=== PATIENT | female | born 1930 | race Caucasian/White ===

== ENCOUNTER → 2016-05-22 | Outpatient (CLI) | payer BC ==
[~2016-05-22] MED LIST: ASCO100061 PO; B-COTAB18 PO; CALC-393 PO; CHOL1000 PO; CIPR-255 PO; LEVE500T PO; MELA1TAB5 PO; MULT-513 PO; ONDA4TAB10 SL; ONDA4TAB46 PO; PRLSR20 PO; SIMV20TA2 PO; TEMA15CA4 PO; ZLF/100 PO; ZNTT/150 PO
[2016-05-22 17:27] LABS: BASO % 0.5 %; BASO ABS # 0.04 K/uL (0-0.2); COMPLETE YES; EOS % 1.4 %; HEMATOCRIT 37.8 % (37-47); IG% 0.1 %; LYMPH % 15.3 %; LYMPH ABS # 1.29 K/uL (1.2-3.4); MEAN CELL VOLUME 94.7 fL (80-100); MEAN CORPUSCULAR HEMOGLOBIN 32.6 pg (25-34); MEAN CORPUSCULAR HGB CONC 34.4 g/dl (32-36); MEAN PLATELET VOLUME 10.2 fL (7.4-10.4); MONO % 7.3 %; NEUT % 75.4 %; PLATELET COUNT 187 K/uL (130-400); RED BLOOD COUNT 3.99 M/uL (4.2-5.4); WHITE BLOOD COUNT 8.44 K/uL (4.8-10.8)
[2016-05-22 17:34] LABS: ALT/SGPT 25 U/L (12-78); BLOOD UREA NITROGEN 28 mg/dl (7-18); BUN/CREATININE RATIO 23.1 (10-20); CALCIUM 10.1 mg/dl (8.5-10.1); CARBON DIOXIDE 28 mmol/L (21-32); CHLORIDE 106 mmol/L (98-107); GLUCOSE 109 mg/dl (70-99); POTASSIUM 4.1 mmol/L (3.5-5.1); SODIUM 142 mmol/L (136-145)
[2016-05-22 17:44] LABS: ALKALINE PHOSPHATASE 43 U/L (45-117); AST/SGOT 25 U/L (15-37); THYROID STIMULATING HORMONE 0.661 uIu/ml (0.300-4.500)
[2016-05-22 17:54] LABS: ESTIMATED AVERAGE GLUCOSE 123 mg/dl; HA1C FLAG Normal (Normal)
--- NOTE | 2016-05-30 08:57 | CODING QUERY MEDICAL NECESSITY ---
SUPPORTING DIAGNOSIS NEEDED A supporting diagnosis is required for the test/procedure performed on this patient in order for us to be reimbursed by the patient's insurance. Please provide a supporting diagnosis for the following test/procedure listed below next to the test name along with your signature. *If there is no additional diagnosis for this patient that would support the following test/procedure please document that below next to the test/procedure. Test(s)/Procedure(s) that require a supporting diagnosis: * GLYCATED HEMOGLOBIN DIAGNOSIS: * DOS: 05/22/16 Provider Signature: Date: Thank you Sobia Nicolas Health Information Management Once completed, please kindly fax back to [phone] For questions please call [phone]
== END | disposition home or self-care (01) ==
LOC: C.LABBFT 12:05
PROVIDERS: ATTEND Internal Medicine
DX: N39.0 Urinary tract infection, site not specified (principal); I10 Essential (primary) hypertension; R73.9 Hyperglycemia, unspecified

== ENCOUNTER → 2016-06-27 | Outpatient (CLI) | payer BC ==
--- NOTE | 2016-06-28 17:12 | EEG Procedure Note ---
EEG Procedure Note Date of Service Jun 27, 2016. Start / End Times Start Time: 1:32 PM End Time: 1:53 PM Referring Physician Vickey Jones History This is a 86-year-old female with history of seizures. EEG for further evaluation of seizures and medication management. Home Medication List Scheduled Ascorbic Acid (Ascorbic Acid), 1,000 MG PO DAILY B-Complex Vitamins (Vitamin B Complex), 1 TAB PO BID Calcium Carbonate (Calcium), 600 MG PO BID Cholecalciferol (Vitamin D3), 1,000 UNITS PO DAILY Levetiractam (Levetiracetam), 500 MG PO BID Melatonin (Kp Melatonin), 3 MG PO HS Multivitamins/Minerals (Mvi With Minerals), 1 TAB PO DAILY Omeprazole (Prilosec), 20 MG PO BID Ondasetron Odt (Zofran Odt), 4 MG SL Q6H Sertraline HCl (Sertraline HCl), 150 MG PO DAILY Simvastatin (Zocor), 20 MG PO QPM Temazepam (Restoril), 7.5 MG PO HS Description This is a 21 electrode EEG with a single channel dedicated to limited EKG. The electrodes were placed in accordance with the International 10-20 system. At the start of the recording the patient was in an awake state. Background was well organized and composed of symmetric mixed alpha and beta frequencies. There was a symmetric well-formed moderate amplitude 8-9 Hz posterior dominant rhythm that was reactive to eye opening and closure. Hyperventilation was not done. Intermittent photic stimulation at various frequencies produced no abnormalities. Drowsiness was indicated by loss of muscle artifact and slowing of the background rhythm. There was no sleep transients. Interpretation This is a normal awake and drowsy routine EEG. There was no electrographic seizures or epileptiform discharges. Clinical Correlation A normal EEG does not rule out epilepsy if there is a strong clinical suspicion.
== END | disposition home or self-care (01) ==
LOC: C.NEUR 13:25
PROVIDERS: ATTEND Psychiatry & Neurology Neurology
DX: G40.909 Epilepsy, unspecified, not intractable, without status epilepticus (principal)

== ENCOUNTER 2016-07-25 10:48 | Emergency (ER) | payer BC ==
[~2016-07-25] VITALS: Ht 157.5 cm; Wt 67.7 kg
[~2016-07-25 10:48] MED LIST changes: -CIPR-255 PO; -ONDA4TAB10 SL; -ONDA4TAB46 PO; -ZNTT/150 PO
[2016-07-25 10:54] VITALS: TEMP 36.6; Ht 157.5 cm; Wt 67.7 kg
[2016-07-25] MEDS ORDERED: ZNTT/150 PO (11:44)
[2016-07-25] MEDS ORDERED: ONDA4TAB46 PO (11:44)
[2016-07-25 12:36] LABS: BASO % 0.8 %; BASO ABS # 0.05 K/uL (0-0.2); COMPLETE YES; EOS % 1.6 %; HEMATOCRIT 38.1 % (37-47); IG% 0.2 %; LYMPH % 20.8 %; LYMPH ABS # 1.31 K/uL (1.2-3.4); MEAN CELL VOLUME 94.1 fL (80-100); MEAN CORPUSCULAR HEMOGLOBIN 31.9 pg (25-34); MEAN CORPUSCULAR HGB CONC 33.9 g/dl (32-36); MEAN PLATELET VOLUME 9.7 fL (7.4-10.4); MONO % 10.3 %; NEUT % 66.3 %; PLATELET COUNT 182 K/uL (130-400); RED BLOOD COUNT 4.05 M/uL (4.2-5.4); WHITE BLOOD COUNT 6.31 K/uL (4.8-10.8)
[2016-07-25 12:47] LABS: URINE APPEARANCE CLEAR (CLEAR); URINE BILIRUBIN NEG (NEG); URINE COLOR DK YELLOW; URINE EPITHELIAL CELL AUTO 20-30 /lpf (0-5); URINE NITRITE NEG (NEG); URINE PH 5.5 (4.5-7.5); URINE SPECIFIC GRAVITY 1.018 (1.000-1.030); UROBILINOGEN NEG (NEG)
[2016-07-25 12:48] LABS: PARTIAL THROMBOPLASTIN RATIO 0.9; PROTHROMBIN TIME (PATIENT) 10.3 SECONDS (9.0-12.0)
[2016-07-25 12:51] LABS: MANUAL MICROSCOPIC REQUIRED? NO; REVIEW REQ? NO
--- NOTE | 2016-07-25 12:54 | DIAGNOSTIC IMAGING REPORT ---
TWO VIEW CHEST CLINICAL HISTORY: Cough. FINDINGS: PA and lateral chest radiographs are compared to chest x-ray dated 01/12/2016 and correlated with chest CT dated 08/29/2014. The PA view is degraded by apical lordotic positioning. The cardiomediastinal silhouette is unremarkable. There is atherosclerotic calcification of the thoracic aorta. Chronic interstitial thickening is unchanged. There is no airspace consolidation or pleural effusion. No pneumothorax is seen. The skeletal structures are osteopenic. The bony thorax is grossly intact. IMPRESSION: No active disease in the chest. Electronically signed by: Itz Hugo M.D. 07/25/2016 12:53 PM Dictated Date/Time: 07/25/2016 12:52 PM
[2016-07-25 13:02] LABS: ALT/SGPT 25 U/L (12-78); AST/SGOT 20 U/L (15-37); BLOOD UREA NITROGEN 20 mg/dl (7-18); BUN/CREATININE RATIO 22.6 (10-20); CALCIUM 9.2 mg/dl (8.5-10.1); CARBON DIOXIDE 29 mmol/L (21-32); CHLORIDE 108 mmol/L (98-107); CREATININE 0.89 mg/dl (0.60-1.20); GLUCOSE 109 mg/dl (70-99); MAGNESIUM 2.2 mg/dl (1.8-2.4); POTASSIUM 4.2 mmol/L (3.5-5.1); SODIUM 143 mmol/L (136-145)
[2016-07-25 13:10] LABS: ALKALINE PHOSPHATASE 47 U/L (45-117); THYROID STIMULATING HORMONE 0.698 uIu/ml (0.300-4.500)
[2016-07-25 13:48] VITALS: BP 112/73; PULSE 58; O2SAT 95
--- NOTE | 2016-07-25 17:18 | EMERGENCY ROOM VISIT NOTE ---
History Report prepared by Yuridia: Donnie Connolly Under the Supervision of: Dr. Dre Koroma M.D. First contact with patient: 11:47 Chief Complaint: OTHER COMPLAINT Stated Complaint: WEAKNESS History of Present Illness The patient is an 86 year old female who presents to the Emergency Room with complaints of persistent generalized weakness for the past two months. The patient has been having trouble sleeping for two months as well. She can usually only sleep two hours at a time. She has been taking Melatonin and Temazepam. The patient has been experiencing some nonproductive coughing for about six months. She denies fevers, congested, chest pain, vomiting, diarrhea, black or bloody stools, burning with urination. The patient has been less active since the onset of her weakness. She was going for walks multiple times per week prior to the onset of her symptoms. She had a change in her bowel movements yesterday but notes that it was not diarrhea. The patient experiences urinary incontinence chronically. She does not have much an appetite but has been eating. The patient was referred to the ED by staff at Dr. Oscar's office this morning. She was supposed to see Dr. Oscar at 1130. Source of History: patient Onset: two months ago Position: other (generalized) Quality: other (weakness) Timing: other (persistent) Associated Symptoms: + cough, No chest pain, No diarrhea, No hematochezia, No melena, No urinary symptoms (no burning), No vomiting Review of Systems See HPI for pertinent positives & negatives. A total of 10 systems reviewed and were otherwise negative. Past Medical & Surgical Medical Problems: (1) Chr Peptic Ulcer W Hem (2) Chronic Kidney Disease, Unspecified (3) Depressive Disorder Nec (4) Diab Angella Wo Compl, Type Ii Or Unspec Type, Not Uncntrld (5) Generalized Anxiety Dis (6) Hypercholesteremia (7) Hyperlipidemia Nec/Nos (8) Hypertension Nos (9) Low back pain (10) Osteoarthros Nos-Unspec Surgical Problems: (1) S/P hysterectomy Family History Cancer Diabetes mellitus Gallbladder disease Heart disease Hypertension Seizures Social History Smoking Status: Never Smoker Alcohol Use: none Drug Use: none Marital Status: single Housing Status: lives alone Occupation Status: retired Current/Historical Medications Scheduled Ascorbic Acid (Ascorbic Acid), 1,000 MG PO DAILY Cholecalciferol (Vitamin D3), 1,000 UNITS PO DAILY Levetiractam (Levetiracetam), 500 MG PO BID Melatonin (Kp Melatonin), 3 MG PO HS Ranitidine (Zantac), 150 MG PO Q12 Sertraline HCl (Sertraline HCl), 150 MG PO QAM Simvastatin (Zocor), 20 MG PO QPM Temazepam (Restoril), 7.5 MG PO HS Scheduled PRN Ondansetron Hcl (Zofran), 4 MG PO Q6 PRN for Nausea Allergies Coded Allergies: Penicillins (Verified Allergy, Unknown, UNKNOWN, 07/25/16) Aspirin (Verified Adverse Reaction, Unknown, INTOLERANT TO ASA, 07/25/16) Physical Exam Vital Signs Date Time Temp Pulse Resp B/P Pulse Ox O2 Delivery O2 Flow Rate FiO2 07/25/16 13:48 58 18 112/73 95 Room Air 07/25/16 12:42 57 07/25/16 12:32 60 18 118/62 96 Room Air 07/25/16 10:54 36.6 68 18 142/71 95 Physical Exam Constitutional: Vital signs reviewed. Eyes: Pupils are equal round reactive to light. Conjunctiva are noninjected. ENT: Pharynx is clear without erythema or exudate. Mucous membranes are moist. Neck supple without meningeal signs. Respiratory: Clear to auscultation bilaterally. Breath sounds are equal bilaterally. Cardiovascular: Regular rate and rhythm. No rubs or gallops. GI: Soft, nondistended and nontender. Bowel sounds are present. Musculoskeletal: No peripheral edema. No lower extremity tenderness. Integumentary: No cyanosis. Neurological: The patient is awake and alert. No focal deficits. Psychiatric: Normal affect. Medical Decision & Procedures ER Provider Diagnostic Interpretation: X-ray results as stated below per interpretation by me and the radiologist: TWO VIEW CHEST CLINICAL HISTORY: Cough. FINDINGS: PA and lateral chest radiographs are compared to chest x-ray dated 01/12/2016 and correlated with chest CT dated 08/29/2014. The PA view is degraded by apical lordotic positioning. The cardiomediastinal silhouette is unremarkable. There is atherosclerotic calcification of the thoracic aorta. Chronic interstitial thickening is unchanged. There is no airspace consolidation or pleural effusion. No pneumothorax is seen. The skeletal structures are osteopenic. The bony thorax is grossly intact. IMPRESSION: No active disease in the chest. Electronically signed by: Itz Hugo M.D. 07/25/2016 12:53 PM Dictated Date/Time: 07/25/2016 12:52 PM Laboratory Results 07/25/16 12:17 Red Blood Count 4.05, Mean Corpuscular Volume 94.1, Mean Corpuscular Hemoglobin 31.9, Mean Corpuscular Hemoglobin Concent 33.9, Mean Platelet Volume 9.7, Neutrophils (%) (Auto) 66.3, Lymphocytes (%) (Auto) 20.8, Monocytes (%) (Auto) 10.3, Eosinophils (%) (Auto) 1.6, Basophils (%) (Auto) 0.8, Neutrophils # (Auto ) 4.19, Lymphocytes # (Auto) 1.31, Monocytes # (Auto) 0.65, Eosinophils # (Auto ) 0.10, Basophils # (Auto) 0.05 07/25/16 12:17 Test 07/25/16 12:17 07/25/16 12:31 White Blood Count 6.31 K/uL (4.8-10.8) Red Blood Count 4.05 M/uL (4.2-5.4) Hemoglobin 12.9 g/dL (12.0-16.0) Hematocrit 38.1 % (37-47) Mean Corpuscular Volume 94.1 fL (80-100) Mean Corpuscular Hemoglobin 31.9 pg (25-34) Mean Corpuscular Hemoglobin Concent 33.9 g/dl (32-36) Platelet Count 182 K/uL (130-400) Mean Platelet Volume 9.7 fL (7.4-10.4) Neutrophils (%) (Auto) 66.3 % Lymphocytes (%) (Auto) 20.8 % Monocytes (%) (Auto) 10.3 % Eosinophils (%) (Auto) 1.6 % Basophils (%) (Auto) 0.8 % Neutrophils # (Auto) 4.19 K/uL (1.4-6.5) Lymphocytes # (Auto) 1.31 K/uL (1.2-3.4) Monocytes # (Auto) 0.65 K/uL (0.11-0.59) Eosinophils # (Auto) 0.10 K/uL (0-0.5) Basophils # (Auto) 0.05 K/uL (0-0.2) RDW Standard Deviation 44.6 fL (36.4-46.3) RDW Coefficient of Variation 12.9 % (11.5-14.5) Immature Granulocyte % (Auto) 0.2 % Immature Granulocyte # (Auto) 0.01 K/uL (0.00-0.02) Prothrombin Time 10.3 SECONDS (9.0-12.0) Prothromb Time International Ratio 1.0 (0.9-1.1) Activated Partial Thromboplast Time 24.4 SECONDS (21.0-31.0) Partial Thromboplastin Ratio 0.9 Anion Gap 6.0 mmol/L (3-11) Est Creatinine Clear Calc Drug Dose 40.9 ml/min Estimated GFR () 68.0 Estimated GFR (Non- 58.7 BUN/Creatinine Ratio 22.6 (10-20) Calcium Level 9.2 mg/dl (8.5-10.1) Magnesium Level 2.2 mg/dl (1.8-2.4) Total Bilirubin 0.6 mg/dl (0.2-1) Direct Bilirubin 0.1 mg/dl (0-0.2) Aspartate Amino Transf (AST/SGOT) 20 U/L (15-37) Alanine Aminotransferase (ALT/SGPT) 25 U/L (12-78) Alkaline Phosphatase 47 U/L (45-117) Troponin I < 0.015 ng/ml (0-0.045) Total Protein 7.3 gm/dl (6.4-8.2) Albumin 3.6 gm/dl (3.4-5.0) Thyroid Stimulating Hormone (TSH) 0.698 uIu/ml (0.300-4.500) Free Thyroxine 0.86 ng/dl (0.80-1.60) Urine Color DK YELLOW Urine Appearance CLEAR (CLEAR) Urine pH 5.5 (4.5-7.5) Urine Specific [place] 1.018 (1.000-1.030) Urine Protein NEG (NEG) Urine Glucose (UA) NEG (NEG) Urine Ketones NEG (NEG) Urine Occult Blood NEG (NEG) Urine Nitrite NEG (NEG) Urine Bilirubin NEG (NEG) Urine Urobilinogen NEG (NEG) Urine Leukocyte Esterase SMALL (NEG) Urine WBC (Auto) 1-5 /hpf (0-5) Urine RBC (Auto) 0-4 /hpf (0-4) Urine Hyaline Casts (Auto) 1-5 /lpf (0-5) Urine Epithelial Cells (Auto) 20-30 /lpf (0-5) Urine Bacteria (Auto) NEG (NEG) Laboratory results as reviewed by me. ECG Indication: weakness Rate (beats per minute): 59 Rhythm: sinus bradycardia Findings: no acute ischemic change, no ectopy Comparison ECG Date: 2015 Change: no significant change ED Course 1150: The patient was evaluated in room C6. A complete history and physical exam was performed. 1330: Talked with her about the test results. Waiting on Dr. Oscar to return call. 1345: Spoke with Dr. Oscar. He does not know why she was sent to the ED. He will try to have her scheduled soon. 1352: Discussed the plan with the patient and her . Medical Decision This is an 86-year-old female who presents with generalized weakness and cough. Differential diagnosis includes insomnia, metabolic derangement, anemia, cardiac, infection, mass, pneumonia. I did perform a limited focused review of portions of the patient's old chart on the electronic medical record. The patient had a negative EEG on June 27. I did evaluate the patient as noted above. The patient is presenting with generalized weakness for the past 2 months. She states she is having trouble sleeping despite being on temazepam and melatonin. She also has a nonproductive cough for the past 6 months. She was at her doctor's office today for an appointment 11:30 but the nursing staff directed her here for evaluation. IV access was established. The patient was placed on a continuous surveillance system monitor. I did order and personally review the patient's 12-lead EKG and chest x-ray as described above. I did order and review the patient's blood work as noted in the electronic medical record. I did order a urinalysis which was unremarkable. I did discuss the test results with the patient. I did discuss the case with Dr. Oscar who stated that he would fit her in for an appointment in the near future. His office will call her today or tomorrow. The patient and her were happy with this plan. She was discharged in good condition. Impression Primary Impression: Generalized weakness Additional Impressions: Insomnia Cough Scribe Attestation The scribe's documentation has been prepared under my direct and personally reviewed by me in its entirety. I confirm that the note above accurately reflects all work, treatment, procedures, and medical decision making performed by me. Departure Information Dispostion Home / Self-Care Referrals Brant Oscar M.D. (PCP) Forms HOME CARE DOCUMENTATION FORM, IMPORTANT VISIT INFORMATION, WORK / SCHOOL INSTRUCTIONS Patient Instructions ED Cough Chronic Cause Unkn, ED Weakness [facility], [facility] Additional Instructions You have been examined and treated today on an emergency basis only. This is not a substitute for, or an effort to provide, complete comprehensive medical care. It is impossible to recognize and treat all injuries or illnesses in a single emergency department visit. It is therefore important that you follow up closely with your physician. Your doctor's office will call you within the next day for an appointment. Return for worsening symptoms or if you develop fever, vomiting, chest pain, shortness of breath or any other concerning symptoms. Problem Qualifiers Additional Impressions: Insomnia Insomnia type: unspecified Qualified Codes: G47.00 - Insomnia, unspecified
== END 2016-07-25 13:58 | disposition home or self-care (01) ==
LOC: C.EDB 10:49 → C.EDC 13:58
DX: R53.1 Weakness (principal); G47.00 Insomnia, unspecified; R05 Cough; N18.9 Chronic kidney disease, unspecified; I12.9 Hypertensive chronic kidney disease with stage 1 through stage 4 chronic kidney disease, or unspecified chronic kidney disease; F32.9 Major depressive disorder, single episode, unspecified; E11.9 Type 2 diabetes mellitus without complications; F41.1 Generalized anxiety disorder; E78.00 Pure hypercholesterolemia, unspecified; E78.5 Hyperlipidemia, unspecified; M54.5 Low back pain; M19.90 Unspecified osteoarthritis, unspecified site; Z90.710 Acquired absence of both cervix and uterus; Z80.9 Family history of malignant neoplasm, unspecified; Z83.3 Family history of diabetes mellitus; Z82.49 Family history of ischemic heart disease and other diseases of the circulatory system; Z82.0 Family history of epilepsy and other diseases of the nervous system; Z79.899 Other long term (current) drug therapy

== ENCOUNTER → 2016-10-01 | Outpatient (CLI) | payer BC ==
[~2016-10-01] MED LIST changes: -B-COTAB18 PO; -CALC-393 PO; +CIPR-255 PO; -MULT-513 PO; +ONDA4TAB46 PO; -PRLSR20 PO; +ZNTT/150 PO
[2016-10-01 17:27] LABS: URINE APPEARANCE CLEAR (CLEAR); URINE BILIRUBIN NEG (NEG); URINE COLOR YELLOW; URINE EPITHELIAL CELL AUTO 20-30 /lpf (0-5); URINE NITRITE NEG (NEG); URINE PH 5.5 (4.5-7.5); UROBILINOGEN NEG (NEG)
[2016-10-01 17:36] LABS: MANUAL MICROSCOPIC REQUIRED? NO; REVIEW REQ? NO
== END | disposition home or self-care (01) ==
LOC: C.LABBFT 12:10
PROVIDERS: ATTEND Physician Assistant Medical
DX: R39.15 Urgency of urination (principal)

== ENCOUNTER 2016-10-08 14:42 | Emergency (ER) | payer BC ==
[~2016-10-08] VITALS: Ht 154.9 cm; Wt 66.8 kg
[~2016-10-08 14:42] MED LIST changes: -CIPR-255 PO
[2016-10-08 14:45] VITALS: TEMP 36.8; O2SAT 94; Ht 154.9 cm; Wt 66.8 kg
[2016-10-08] MEDS ORDERED: SODIUM CHLORIDE 0.9% 1000ML 1,000 ML IV STA (15:07)
--- NOTE | 2016-10-08 15:53 | DIAGNOSTIC IMAGING REPORT ---
CHEST ONE VIEW PORTABLE CLINICAL HISTORY: altered mental status dyspnea COMPARISON STUDY: 07/25/2016 FINDINGS: The bones soft tissues and hemidiaphragms are normal. The cardiomediastinal silhouette is normal. The lungs are clear. The pulmonary vasculature is normal. IMPRESSION: Negative chest. The above report was generated using voice recognition software. It may contain grammatical, syntax or spelling errors. Electronically signed by: Satya Carter M.D. 10/08/2016 3:52 PM Dictated Date/Time: 10/08/2016 3:51 PM
[2016-10-08 15:57] LABS: BASO % 0.4 %; BASO ABS # 0.03 K/uL (0-0.2); COMPLETE YES; EOS % 1.4 %; HEMATOCRIT 36.8 % (37-47); IG% 0.1 %; LYMPH % 14.5 %; LYMPH ABS # 1.12 K/uL (1.2-3.4); MEAN CELL VOLUME 93.4 fL (80-100); MEAN CORPUSCULAR HEMOGLOBIN 32.5 pg (25-34); MEAN CORPUSCULAR HGB CONC 34.8 g/dl (32-36); MONO % 9.5 %; NEUT % 74.1 %; PLATELET COUNT 192 K/uL (130-400); RED BLOOD COUNT 3.94 M/uL (4.2-5.4); WHITE BLOOD COUNT 7.72 K/uL (4.8-10.8)
[2016-10-08 16:04] LABS: INR 0.9 (0.9-1.1); PARTIAL THROMBOPLASTIN RATIO 0.9; PROTHROMBIN TIME (PATIENT) 10.1 SECONDS (9.0-12.0)
--- NOTE | 2016-10-08 16:17 | DIAGNOSTIC IMAGING REPORT ---
CT HEAD WITHOUT CONTRAST (CT) CLINICAL HISTORY: altered mental status VERTIGO COMPARISON STUDY: 06/23/2015 TECHNIQUE: Axial CT of the brain is performed from the vertex to the skull base. IV contrast was not administered for this examination. CT DOSE: 614.27 mGy.cm FINDINGS: No intra or extra-axial mass lesions are visualized. There is no CT evidence of acute cortical infarction. There is no evidence of midline shift. There is no acute hemorrhage. No calvarial fractures are visualized. There are patchy white matter hypodensities likely on a small vessel basis. There is no evidence of pathologic ventricular dilatation. There is no evidence of acute sinusitis. There is ossification of the anterior falx. IMPRESSION: No acute intracranial findings Electronically signed by: Merritt Manley M.D. 10/08/2016 4:15 PM Dictated Date/Time: 10/08/2016 4:14 PM
[2016-10-08 16:26] LABS: ALT/SGPT 28 U/L (12-78); BLOOD UREA NITROGEN 22 mg/dl (7-18); BUN/CREATININE RATIO 22.9 (10-20); CALCIUM 9.9 mg/dl (8.5-10.1); CARBON DIOXIDE 26 mmol/L (21-32); CHLORIDE 108 mmol/L (98-107); CREATININE 0.95 mg/dl (0.60-1.20); GLUCOSE 171 mg/dl (70-99); POTASSIUM 3.8 mmol/L (3.5-5.1); SODIUM 142 mmol/L (136-145)
[2016-10-08 16:35] LABS: ALKALINE PHOSPHATASE 50 U/L (45-117); AST/SGOT 27 U/L (15-37); THYROID STIMULATING HORMONE 0.615 uIu/ml (0.300-4.500)
[2016-10-08 16:57] LABS: MANUAL MICROSCOPIC REQUIRED? NO; REVIEW REQ? YES; URINE APPEARANCE CLEAR (CLEAR); URINE BILIRUBIN NEG (NEG); URINE COLOR YELLOW; URINE EPITHELIAL CELL AUTO >30 /lpf (0-5); URINE NITRITE NEG (NEG); URINE PH 5.5 (4.5-7.5); URINE SPECIFIC GRAVITY 1.022 (1.000-1.030); UROBILINOGEN NEG (NEG)
[2016-10-08] MEDS ORDERED: CIPROFLOXACIN 500 MG TAB PO STA ×2 (17:25→17:27)
[2016-10-08] MEDS ORDERED: SODIUM CHLORIDE 0.9% 500ML 500 ML IV STA (17:27)
[2016-10-08] MEDS ORDERED: CIPR-255 PO (17:27)
[2016-10-08] MEDS ORDERED: EMPTY 8 DRAM VIAL ONE (17:55)
[2016-10-08 18:46] VITALS: BP 178/71; PULSE 63; O2SAT 95
--- NOTE | 2016-10-08 18:55 | EMERGENCY ROOM VISIT NOTE ---
History Report prepared by Yuridia: Joann Lujan Under the Supervision of: Dr. Osbaldo Agarwal M.D. First contact with patient: 15:07 Chief Complaint: ALTERED MENTAL STATUS Stated Complaint: AMS/VERTIGO Nursing Triage Summary: Patient presents via ALS ambulance from home with c/o confusion per son for 1 day Patient ambulatory independently from stretcher to ED litter Alert and oriented to person, place, time, and event Patient's only complaint is that her "equilibrium feels off and she is having a more difficult time signing her name" Denies other complaints History of Present Illness The patient is a 86 year old female who presents to the Emergency Room with complaints of constant altered mental status beginning 4 days ago. The patient states that she has been having some difficulty writing her name for the last few days. She reports that she has had some slurred speech that is improved with talking and intermittent headaches. The patient notes that she has had incontinence for the last few months and has an appointment with a urologist next week. She denies any LOC, fevers, chills, diaphoresis, neck pain, chest pain, breathing difficulties, nausea, vomiting, abdominal pain, new back pain, melena, hematochezia, numbness, weakness, lymphadenopathy, rash, or other complaints. She denies any history of stroke, TIA. 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 Source of History: patient Onset: 4 days ago Position: other (global) Quality: other (AMS) Timing: constant Note: Pt complains of headaches, difficulty writing, and old incontinence. She denies any LOC, fevers, chills, diaphoresis, neck pain, chest pain, breathing difficulties, nausea, vomiting, abdominal pain, new back pain, melena, hematochezia, numbness, weakness, lymphadenopathy, rash, or other complaints. She denies any history of stroke, TIA. 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 Review of Systems See HPI for pertinent positives and negatives. A total of ten systems were reviewed and were otherwise negative. Past Medical & Surgical Medical Problems: (1) Chr Peptic Ulcer W Hem (2) Chronic Kidney Disease, Unspecified (3) Depressive Disorder Nec (4) Diab Angella Wo Compl, Type Ii Or Unspec Type, Not Uncntrld (5) Generalized Anxiety Dis (6) Hypercholesteremia (7) Hyperlipidemia Nec/Nos (8) Hypertension Nos (9) Low back pain (10) Osteoarthros Nos-Unspec (11) SEIZURE (12) UTI (urinary tract infection) Surgical Problems: (1) S/P hysterectomy Family History Cancer Diabetes mellitus Gallbladder disease Heart disease Hypertension Seizures Social History Smoking Status: Never Smoker Alcohol Use: none Drug Use: none Marital Status: single Housing Status: lives alone Occupation Status: retired Current/Historical Medications Scheduled Ascorbic Acid (Ascorbic Acid), 1,000 MG PO DAILY Cholecalciferol (Vitamin D3), 1,000 UNITS PO DAILY Ciprofloxacin Hcl (Cipro), 500 MG PO BID Melatonin (Kp Melatonin), 3 MG PO HS Ranitidine (Zantac), 150 MG PO Q12 Sertraline HCl (Sertraline HCl), 150 MG PO QAM Simvastatin (Zocor), 20 MG PO QPM Temazepam (Restoril), 7.5 MG PO HS Scheduled PRN Ondansetron Hcl (Zofran), 4 MG PO Q6 PRN for Nausea Allergies Coded Allergies: Penicillins (Verified Allergy, Unknown, UNKNOWN, 10/08/16) Aspirin (Verified Adverse Reaction, Unknown, INTOLERANT TO ASA, 10/08/16) Physical Exam Vital Signs Date Time Temp Pulse Resp B/P (MAP) Pulse Ox O2 Delivery O2 Flow Rate FiO2 10/08/16 18:46 63 18 178/71 95 10/08/16 16:40 62 20 171/88 94 Room Air 10/08/16 15:09 65 10/08/16 14:45 94 Room Air 10/08/16 14:45 36.8 69 18 175/73 94 Room Air Physical Exam GENERAL: Awake, alert, well appearing, no distress HENT: Normocephalic, atraumatic. TM's normal. Oropharynx unremarkable. EYES: PERRL. Normal conjunctiva. Sclera non-icteric. Fundi normal. EOMI NECK: Supple. No nuchal rigidity. FROM. RESPIRATORY: CTA CARDIAC: RRR. Extremities warm and well perfused. Systolic ejection murmur. ABDOMEN: Soft, non distended. No tenderness to palpation. No rebound or guarding. No masses. MUSCULOSKELETAL: Unremarkable. EXTREMITIES: No edema. No discoloration. Gross motor strength 5/5 bilaterally. NEURO: Normal sensorium. Gait normal. Cranial nerves two through 12 intact. No pronator drift. Negative Romberg. Speech is somewhat thick, slight word finding , mild difficulty with rapid alternating movements. SKIN: No rash or jaundice noted. LYMPH: No adenopathy. Medical Decision & Procedures ER Provider Diagnostic Interpretation: Radiology results as stated below per my review and radiologist interpretation: CT HEAD WITHOUT CONTRAST (CT) FINDINGS: No intra or extra-axial mass lesions are visualized. There is no CT evidence of acute cortical infarction. There is no evidence of midline shift. There is no acute hemorrhage. No calvarial fractures are visualized. There are patchy white matter hypodensities likely on a small vessel basis. There is no evidence of pathologic ventricular dilatation. There is no evidence of acute sinusitis. There is ossification of the anterior falx. IMPRESSION: No acute intracranial findings Electronically signed by: Merritt Manley M.D. 10/08/2016 4:15 PM Dictated Date/Time: 10/08/2016 4:14 PM CHEST ONE VIEW PORTABLE FINDINGS: The bones soft tissues and hemidiaphragms are normal. The cardiomediastinal silhouette is normal. The lungs are clear. The pulmonary vasculature is normal. IMPRESSION: Negative chest. The above report was generated using voice recognition software. It may contain grammatical, syntax or spelling errors. Electronically signed by: Satya Carter M.D. 10/08/2016 3:52 PM Dictated Date/Time: 10/08/2016 3:51 PM Laboratory Results 10/08/16 15:38 Red Blood Count 3.94, Mean Corpuscular Volume 93.4, Mean Corpuscular Hemoglobin 32.5, Mean Corpuscular Hemoglobin Concent 34.8, Mean Platelet Volume 10.0, Neutrophils (%) (Auto) 74.1, Lymphocytes (%) (Auto) 14.5, Monocytes (%) (Auto) 9.5, Eosinophils (%) (Auto) 1.4, Basophils (%) (Auto) 0.4, Neutrophils # (Auto) 5.72, Lymphocytes # (Auto) 1.12, Monocytes # (Auto) 0.73, Eosinophils # (Auto) 0.11, Basophils # (Auto) 0.03 10/08/16 15:38 Test 10/08/16 15:38 10/08/16 16:33 White Blood Count 7.72 K/uL (4.8-10.8) Red Blood Count 3.94 M/uL (4.2-5.4) Hemoglobin 12.8 g/dL (12.0-16.0) Hematocrit 36.8 % (37-47) Mean Corpuscular Volume 93.4 fL (80-100) Mean Corpuscular Hemoglobin 32.5 pg (25-34) Mean Corpuscular Hemoglobin Concent 34.8 g/dl (32-36) Platelet Count 192 K/uL (130-400) Mean Platelet Volume 10.0 fL (7.4-10.4) Neutrophils (%) (Auto) 74.1 % Lymphocytes (%) (Auto) 14.5 % Monocytes (%) (Auto) 9.5 % Eosinophils (%) (Auto) 1.4 % Basophils (%) (Auto) 0.4 % Neutrophils # (Auto) 5.72 K/uL (1.4-6.5) Lymphocytes # (Auto) 1.12 K/uL (1.2-3.4) Monocytes # (Auto) 0.73 K/uL (0.11-0.59) Eosinophils # (Auto) 0.11 K/uL (0-0.5) Basophils # (Auto) 0.03 K/uL (0-0.2) RDW Standard Deviation 44.0 fL (36.4-46.3) RDW Coefficient of Variation 12.9 % (11.5-14.5) Immature Granulocyte % (Auto) 0.1 % Immature Granulocyte # (Auto) 0.01 K/uL (0.00-0.02) Prothrombin Time 10.1 SECONDS (9.0-12.0) Prothromb Time International Ratio 0.9 (0.9-1.1) Activated Partial Thromboplast Time 23.1 SECONDS (21.0-31.0) Partial Thromboplastin Ratio 0.9 Anion Gap 8.0 mmol/L (3-11) Est Creatinine Clear Calc Drug Dose 37.2 ml/min Estimated GFR () 62.9 Estimated GFR (Non- 54.2 BUN/Creatinine Ratio 22.9 (10-20) Calcium Level 9.9 mg/dl (8.5-10.1) Magnesium Level 2.0 mg/dl (1.8-2.4) Total Bilirubin 0.6 mg/dl (0.2-1) Direct Bilirubin 0.1 mg/dl (0-0.2) Aspartate Amino Transf (AST/SGOT) 27 U/L (15-37) Alanine Aminotransferase (ALT/SGPT) 28 U/L (12-78) Alkaline Phosphatase 50 U/L (45-117) Total Creatine Kinase 84 U/L (26-192) Creatine Kinase MB 0.8 ng/ml (0.5-3.6) Creatine Kinase MB Ratio 1.0 (0-3.0) Troponin I < 0.015 ng/ml (0-0.045) Total Protein 7.5 gm/dl (6.4-8.2) Albumin 3.6 gm/dl (3.4-5.0) Lipase 219 U/L (73-393) Thyroid Stimulating Hormone (TSH) 0.615 uIu/ml (0.300-4.500) Urine Color YELLOW Urine Appearance CLEAR (CLEAR) Urine pH 5.5 (4.5-7.5) Urine Specific [place] 1.022 (1.000-1.030) Urine Protein NEG (NEG) Urine Glucose (UA) NEG (NEG) Urine Ketones NEG (NEG) Urine Occult Blood NEG (NEG) Urine Nitrite NEG (NEG) Urine Bilirubin NEG (NEG) Urine Urobilinogen NEG (NEG) Urine Leukocyte Esterase MODERATE (NEG) Urine WBC (Auto) 10-30 /hpf (0-5) Urine RBC (Auto) 0-4 /hpf (0-4) Urine Hyaline Casts (Auto) 1-5 /lpf (0-5) Urine Epithelial Cells (Auto) >30 /lpf (0-5) Urine Bacteria (Auto) NEG (NEG) Urine Renal Epithelial Cells 0-5 /lpf (0-5) Laboratory results reviewed by me Medications Administered Medications (Trade) Dose Ordered Sig/Shanice Route Start Time Stop Time Status Last Admin Dose Admin Sodium Chloride 1,000 ml @ 125 mls/hr Q8H STAT IV 10/08/16 15:07 10/08/16 23:06 10/08/16 16:16 125 MLS/HR Ciprofloxacin (Cipro Tab) 500 mg NOW STAT PO 10/08/16 17:25 10/08/16 17:26 DC 10/08/16 18:00 500 MG Ciprofloxacin (Cipro Tab) 500 mg NOW STAT PO 10/08/16 17:27 10/08/16 17:29 DC 10/08/16 18:00 500 MG Sodium Chloride 500 ml @ 999 mls/hr Q31M STAT IV 10/08/16 17:27 10/08/16 17:57 DC 10/08/16 17:59 999 MLS/HR ECG Indication: other (AMS) Rate (beats per minute): 65 Rhythm: normal sinus Findings: no acute ischemic change, no ectopy ED Course 1507: The patient was evaluated in room B12B. A complete history and physical exam was performed. 1507: Sodium Chloride 1000 ml @ 125 mls/hr IV. 1641: The patients family was present. They report that over the last 3 days she has been intermittently confused. They note that her speech is relatively normal. 1725: Cipro Tab 500mg PO. 1727: Sodium Chloride 500 ml @ 999 mls/hr IV, Cipro Tab 500mg PO. 1732: I reevaluated the patient and had her write her name down. The family says that it is the same as usual. We will treat her urine and she will follow up with her PCP this week. Utilizing shared decision making, we decided that if she is the same or worse this week they will bring her back. 1744: I reevaluated the patient. Discussed results and discharge instructions: She verbalized understanding and agreement. The patient is ready for discharge. Medical Decision Medication Reconciliation: I attest that I have personally reviewed the patient' s current medication list Blood pressure screening: Patient was found to have an elevated blood pressure and was referred to their primary doctor for recheck and further treatment. Triage Nursing notes reviewed. The patient's presentation and history were concerning for altered mental status. Etiologies such as metabolic, infection, hypo/hyperglycemia, electrolyte abnormalities, cardiac sources, intracerebral event, toxicologic, neurologic, as well as others were entertained. The patient was evaluated. She seemed to have some difficulty with her speech. On initial evaluation the family was not present. Blood work and imaging were ordered. The patient was hydrated. The patient had a unremarkable chest x -ray and CT scan. The family arrived and stated that her speech is actually normal. They noted slight periods of confusion that resolved on their own. The patient's blood work was unremarkable. Her urinalysis was somewhat concerning as this was a catheter specimen and she was uncomfortable during the procedure per nursing. She has a history of UTIs. The patient's ECG was unremarkable. Blood work did not reveal any abnormalities. The patient was back to her normal self. She was able to write her name for me and family states it appeared that it was at baseline. I suspect that she had some difficulty with a rapid alternating movement testing because she has fairly advanced arthritis. As her mental status is normal and she passed her tests I discussed treatment options. She was given a dose of oral Cipro. Family feels comfortable with her going home as does the patient. She will follow-up with her primary office tomorrow. If she worsens they will bring her back immediately. I will treat her with 3 days of Cipro pending culture. By the evaluation outlined above other emergent etiologies such as those listed in the differential, as well as others, were deemed relatively unlikely. The patient was educated about the findings as listed above. All questions were answered and the patient was pleased with the treatment. Return instructions were outlined and the patient was discharged in stable condition. The patient was referred to her PCP for follow-up for a recheck of the current condition. Impression Primary Impression: Confusion Additional Impression: UTI (urinary tract infection) Scribe Attestation The scribe's documentation has been prepared under my direction and personally reviewed by me in its entirety. I confirm that the note above accurately reflects all work, treatment, procedures, and medical decision making performed by me. Departure Information Dispostion Home / Self-Care Prescriptions Ciprofloxacin Hcl (CIPRO) 500 Mg Tab 500 MG PO BID, #4 TAB Prov: Osbaldo Agarwal MD 10/08/16 Referrals Brant Oscar M.D. (PCP) Forms HOME CARE DOCUMENTATION FORM, IMPORTANT VISIT INFORMATION Patient Instructions My [facility] Additional Instructions Ciprofloxacin(Cipro) 500mg: Take one pill twice daily for 3 days for your urine infection. All antibiotics can cause diarrhea. If this occurs and you feel worse or it does not resolve in 1-2 days follow up with your doctor or return to the Emergency Department as this could be signs of serious underlying problems. If you experience any pain in your tendons or any tendon injury return to the ER for re-evaluation. Any medication can cause an allergic reaction, stop the pills immediately and return to the ER for rash, hives, breathing difficulties, or swelling. Acetaminophen(Tylenol) may be used for fever or pain. Use 1000mg every six hours as needed. Avoid using more than 3000mg in a 24 hour period. Rest and drink plenty of fluids. Continue current medications. Return to the ER immediately for worsening or persistent confusion, abdominal pain, vomiting, fevers, back or flank pain, worsening of your condition, or as needed. Follow up with your primary physician tomorrow for a recheck of the current condition. Call tomorrow around 8:30 in the morning and let the national secretary know you were in the Emergency Room and we want an urgent follow up. If they cannot accommodate you are you have any issues scheduling an appointment for this week call back to the Emergency Room to speak to the trimming caser at [phone]. Problem Qualifiers
== END 2016-10-08 18:47 | disposition home or self-care (01) ==
LOC: EDBD 14:42 → C.EDB 14:43
DX: R41.82 Altered mental status, unspecified (principal); N39.0 Urinary tract infection, site not specified; R42 Dizziness and giddiness

== ENCOUNTER → 2016-10-22 | Outpatient (CLI) | payer BC ==
[~2016-10-22] MED LIST changes: +CIPR-255 PO; -LEVE500T PO
[2016-10-22 18:12] LABS: CHOLESTEROL/HDL RATIO 3.9
--- NOTE | 2016-10-28 14:02 | CODING QUERY MEDICAL NECESSITY ---
SUPPORTING DIAGNOSIS NEEDED A supporting diagnosis is required for the test/procedure performed on this patient in order for us to be reimbursed by the patient's insurance. Please provide a supporting diagnosis for the following test/procedure listed below next to the test name along with your signature. *If there is no additional diagnosis for this patient that would support the following test/procedure please document that below next to the test/procedure. Test(s)/Procedure(s) that require a supporting diagnosis: * VITAMIN D, 25-HYDROXY DIAGNOSIS: Provider Signature: Date: Thank you Olivia Mane [employer] Information Management Once completed, please kindly fax back to [phone] For questions please call [phone]
== END | disposition home or self-care (01) ==
LOC: C.LABBFT 11:58
PROVIDERS: ATTEND Internal Medicine
DX: R26.9 Unspecified abnormalities of gait and mobility (principal); E78.5 Hyperlipidemia, unspecified

== ENCOUNTER → 2016-11-04 | Outpatient (CLI) | payer BC | END | disposition home or self-care (01) | LOC: C.PATHSPEC 17:00 → C.LABSPEC 17:00 | PROVIDERS: ATTEND Nurse Practitioner Adult Health | DX: N39.41 Urge incontinence (principal); R32 Unspecified urinary incontinence; R31.29 Other microscopic hematuria ==

== ENCOUNTER → 2016-11-12 | Outpatient (CLI) | payer BC ==
[~2016-11-12] MED LIST changes: +OPTIRAY 320 IV PRN
--- NOTE | 2016-11-12 13:50 | DIAGNOSTIC IMAGING REPORT ---
ABD/PELVIS COMBO CLINICAL HISTORY: 86 years-old Female presenting with microhematuria. TECHNIQUE: Multidetector CT of the abdomen and pelvis was performed before and after the administration of intravenous contrast. IV contrast: 94 mL of Optiray 320. A dose lowering technique was used consistent with the principles of ALARA (as low as reasonably achievable). COMPARISON: 01/10 03/[address] DOSE (mGy.cm): The estimated cumulative dose is 1634.75 mGycm. FINDINGS: Technology Assistant topogram: Unremarkable. Lung bases: Dependent subpleural reticulation, groundglass, and minimal nodularity at the left lung base asymmetric to the right. Normal heart size. Mitral annular and aortic valve calcification. No pericardial or pleural effusion. Liver: Normal morphology. Normal density. No liver lesion. Patent hepatic vasculature. Biliary: No intrahepatic or extrahepatic biliary ductal dilatation. Normal gallbladder. Pancreas: Mild parenchymal atrophy. Spleen: Normal. Adrenal glands: Normal. Kidneys and ureters: Nonobstructing left renal calculus versus parenchymal calcification laterally at the upper pole of the left kidney, measuring 4 mm. No filling defect within the collecting systems to suggest mass lesion. No hydronephrosis. Normal ureters. Subcentimeter hypodensity in the interpolar region of the left kidney too small to characterize but likely cyst. Bladder: Mild circumferential bladder wall thickening, possibly due to underdistention. Pelvic organs: Uterus surgically absent. Bowel: Mild stool burden throughout normal caliber colon. Normal appendix. No bowel obstruction. Peritoneal cavity: No free fluid or intraperitoneal gas. Vasculature: Atherosclerosis of the normal caliber abdominal aorta. IVC patent. Lymph nodes: No enlarged lymph nodes in the abdomen or pelvis. Abdominal wall: Small fat-containing umbilical hernia Musculoskeletal: Degenerative changes of the spine. Degenerative changes of the sacroiliac joints. IMPRESSION: 1. Dependent subpleural reticulation, groundglass opacity, minimal nodularity at the left lung base would be atypical for atelectasis. Other considerations include chronic aspiration. 2. Nonobstructing 4 mm left renal calculus versus parenchymal calcification. No evidence of obstruction. No filling defect in the renal collecting systems. 3. Mild circumference of bladder wall thickening, possibly due to underdistention or represent cystitis. Correlate with urinalysis. Electronically signed by: Vineet Bonilla M.D. 11/12/2016 1:48 PM Dictated Date/Time: 11/12/2016 1:42 PM
== END | disposition home or self-care (01) ==
LOC: C.CTS 12:40
PROVIDERS: ATTEND Nurse Practitioner Adult Health
DX: R31.29 Other microscopic hematuria (principal)

== ENCOUNTER → 2017-01-10 | Outpatient (CLI) | payer BC ==
[~2017-01-10] MED LIST changes: -OPTIRAY 320 IV PRN
[2017-01-10 16:38] LABS: URINE APPEARANCE TURBID (CLEAR); URINE BILIRUBIN NEG (NEG); URINE COLOR DK YELLOW; URINE NITRITE NEG (NEG); URINE PH 6.5 (4.5-7.5); URINE SPECIFIC GRAVITY 1.024 (1.000-1.030); UROBILINOGEN NEG (NEG)
[2017-01-10 16:56] LABS: MANUAL MICROSCOPIC REQUIRED? NO; REVIEW REQ? YES
== END | disposition home or self-care (01) ==
LOC: C.LABBFT 13:02
PROVIDERS: ATTEND Internal Medicine
DX: R39.15 Urgency of urination (principal)

== ENCOUNTER → 2017-02-06 | Outpatient (CLI) | payer BC ==
[2017-02-06 18:50] LABS: BLOOD UREA NITROGEN 23 mg/dl (7-18); CREATININE 0.86 mg/dl (0.60-1.20)
[2017-02-06 19:00] LABS: THYROID STIMULATING HORMONE 0.905 uIu/ml (0.300-4.500)
== END | disposition home or self-care (01) ==
LOC: C.LABBFT 11:31
PROVIDERS: ATTEND Physician Assistant
DX: R93.8 Abnormal findings on diagnostic imaging of other specified body structures (principal); R53.1 Weakness

== ENCOUNTER → 2017-03-07 | Outpatient (CLI) | payer BC ==
[~2017-03-07] MED LIST changes: +OPTIRAY 320 IV PRN
--- NOTE | 2017-03-07 11:43 | DIAGNOSTIC IMAGING REPORT ---
VIDEO SWALLOW CLINICAL HISTORY: 86 years-old Female with R93.[address] scan. Follow-up study to assess possible aspiration of the lung bases TECHNIQUE: Video fluoroscopic evaluation of swallowing was performed in the AP and lateral projections by the speech pathology staff. The patient is fed nectar-thick and thin liquid barium, a barium coated wafer, and barium pudding. FLUOROSCOPY TIME: 2.2 minutes. COMPARISON STUDY: CT abdomen and pelvis 11/12/2016. FINDINGS: There is normal hyoid excursion and epiglottic deflection. No significant penetration or aspiration identified. Swallowing function is within normal limits. Intervertebral disc space narrowing with endplate spurring noted at C5-C6 causing mild mass effect upon the adjacent cervical esophagus. There is slight reversal of the normal cervical lordosis. IMPRESSION: 1. No aspiration identified. 2. Please see the speech pathologist report for detailed findings and recommendations. Electronically signed by: Charan Ortiz M.D. 03/07/2017 11:42 AM Dictated Date/Time: 03/07/2017 11:39 AM
--- NOTE | 2017-03-07 12:34 | DIAGNOSTIC IMAGING REPORT ---
CT OF THE CHEST WITH IV CONTRAST CLINICAL HISTORY: Abnormal CT scan. COMPARISON STUDY: CT of the abdomen and pelvis November 12, 2016, chest CT August 29, 2014 and chest radiograph October 08, 2016. TECHNIQUE: Following IV administration of 94 mL of Optiray-320, helical axial images of the chest were obtained. Sagittal and coronal reconstructions were viewed as well as maximal intensity projections on an independent 3-D workstation. A dose lowering technique was utilized adhering to the principles of ALARA. CT DOSE: 204.07 mGy.cm FINDINGS: Central airways are patent. Size of the heart is normal. There is no pericardial effusion. There is extensive coronary artery calcification and extensive mitral annular calcification. There is no thoracic aortic dissection. Central airways are patent. There is no consolidation to suggest pneumonia. Subpleural opacities within the lower lungs likely reflect atelectasis. Note is made of a 6 mm right upper lobe nodular density shown on axial image 52 of 291. This is similar to exam of August 29, 2014. There is also an 8 mm groundglass nodule within the left upper lobe shown on image 87. This is similar to prior CT of August 29, 2014 as well. No pneumothorax or pleural effusion is present. The appearance of the chest is unchanged. There are no suspicious osseous lesions. A 2.5 cm lobulated density arising from or adjacent to the pancreatic tail is unchanged and suggest a splenule. IMPRESSION: 1. No change in a 6 mm nodular density within the right upper lobe since CT of August 29, 2014. An 8 mm groundglass left upper lobe nodule is also unchanged. These two findings are indeterminate despite stability and a follow-up CT in one year to ensure stability is recommended. 2. No acute intrathoracic findings. Electronically signed by: Grupo Fletcher M.D. 03/07/2017 12:33 PM Dictated Date/Time: 03/07/2017 11:14 AM
--- NOTE | 2017-03-07 15:07 | SWALLOWING EVALUATION ---
REFERRING SPEECH PATHOLOGIST: n/a HISTORY: This 86 year-old female was referred for a VFSS at [facility] in order to f/u an abnormal CT scan of the chest and to address c/o of increasing dysphagia. The patient reports that she feels fullness in her throat at times and that she feels as though when that happens she cannot swallow well. The patient has a PMH significant for PUD, CKD, depression/anxiety, DM II, hyperlipidemia, hypertension, and OA. Currently the patient's diet level is regular. PROCEDURE: The patient was seen in the Radiology Department of [facility] for the VFSS. Cursory examination of the oral cavity revealed adequate dentition. Movement of the articulators was WNL. The patient was seated on a stool and was viewed in both the Anterior-Posterior (A-P) and Lateral planes. Volitional phonation exercises completed in the A-P plane revealed bilateral vocal fold movement and vocal intensity within functional limits. In the lateral plane, the patient was given the following boluses: 1 tsp. thin liquid barium x 2, single swallow thin liquid barium self-presented from a cup, sequential swallows of thin liquid barium self-presented from a cup, 1 tsp. nectar-thick liquid barium, single swallow nectar-thick liquid barium self-presented from a cup, 1 tsp. barium pudding, and 1 club cracker with barium pudding. The patient was then repositioned into the A-P plane and given 1 tsp. barium pudding followed by a self-presented cup sip of thin liquid barium as liquid wash. RESULTS: Oral Stage: No interlabial bolus escape. Cohesive bolus held between tongue and palate during oral bolus hold exercise with thin liquids. Mastication and bolus transport were timely and efficient. No oral bolus retention. The pharyngeal swallow was initiated in a timely manner when the bolus head was in the valleculae. The oral stage of the swallow was WNL. Pharyngeal Stage: No bolus between the soft palate and the pharyngeal wall. Laryngeal elevation, anterior hyoid excursion, epiglottic inversion, and laryngeal vestibular closure were complete. Pharyngeal stripping wave was present. Pharyngeal contraction was complete. Distention and duration of PES opening was complete. Tongue base retraction was adequate. No pharyngeal bolus retention after the swallow. There was no penetration or aspiration during this study. The pharyngeal stage of the swallow was WNL PLEASE NOTE: Per Radiologist report: There was "Intervertebral disc space narrowing with endplate spurring noted at C5-C6 causing mild mass effect upon the adjacent cervical esophagus". All boluses passed through the narrowed cervical esophagus without bolus retention. Esophageal Stage: There was mid-distal esophageal bolus retention that cleared easily with liquid wash. 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 SUMMARY/RECOMMENDATIONS: This patient presents with normal oral-pharyngeal swallowing mechanics, but did present with s/s mild esophageal dysfunction. The following is recommended: 1. Diet as tolerated. Moist, slippery, loose foods may be more comfortable for the patient to swallow. Doughy, thick, dry foods may be less comfortable. 2. Compensatory Strategies: Sit fully upright for meals and for 15 minutes after meals; alternate solids and liquids frequently during meals A summary of the results and recommendations was discussed with the patient and her son immediately following the study. They verbalized understanding. Thank you for referral of this patient. Please contact me at if any additional information is needed.
== END | disposition home or self-care (01) ==
LOC: C.RAD 10:47
PROVIDERS: ATTEND Physician Assistant
DX: R93.8 Abnormal findings on diagnostic imaging of other specified body structures (principal); R91.8 Other nonspecific abnormal finding of lung field

== ENCOUNTER 2017-04-15 18:18 | Observation (INO) | payer BC ==
[~2017-04-15] VITALS: Ht 157.5 cm; Wt 63.8 kg
[~2017-04-15 18:18] MED LIST changes: -OPTIRAY 320 IV PRN
[2017-04-15] MEDS ORDERED: ONDANSETRON INJ 2 MG/ML 2 ML VIAL ONE (18:29)
[2017-04-15] MEDS ORDERED: ONDANSETRON INJ 2 MG/ML 2 ML VIAL IV STA ×2 (18:31→21:22)
[2017-04-15] MEDS ORDERED: SODIUM CHLORIDE 0.9% 1000ML 1,000 ML IV STA ×2 (18:31→21:06)
[2017-04-15 19:20] LABS: HEMATOCRIT 42.1 % (37-47); HEMOGLOBIN 14.8 g/dL (12.0-16.0); MEAN CELL VOLUME 95.2 fL (80-100); MEAN CORPUSCULAR HEMOGLOBIN 33.5 pg (25-34); MEAN CORPUSCULAR HGB CONC 35.2 g/dl (32-36); PLATELET COUNT 179 K/uL (130-400); RED CELL DISTRIBUTION WIDTH CV 12.7 % (11.5-14.5); RED CELL DISTRIBUTION WIDTH SD 43.8 fL (36.4-46.3); WHITE BLOOD COUNT 15.06 K/uL (4.8-10.8)
--- NOTE | 2017-04-15 19:35 | DIAGNOSTIC IMAGING REPORT ---
CT OF THE HEAD WITHOUT CONTRAST CLINICAL HISTORY: trauma, LOC COMPARISON STUDY: Head CT April 10, 2016. CT DOSE: 638.56 mGycm TECHNIQUE: Helical axial images of the head were obtained without IV contrast. Automated exposure control was utilized for the study. A dose lowering technique was utilized adhering to the principles of ALARA. FINDINGS: No acute intracranial hemorrhage, midline shift or mass effect is present. Ventricular system is stable. Basilar cisterns are patent. There are no extra-axial collections. White matter hypodensities are unchanged and suggest small vessel disease. There are no findings to suggest acute dural sinus thrombosis or acute territorial infarct. No calvarial fracture is identified. There are multiple locules of gas within the posterior scalp. This suggests a laceration. IMPRESSION: 1. No acute intracranial findings. 2. Locules of gas within the posterior scalp which suggests a laceration. No calvarial fracture. Electronically signed by: Grupo Fletcher M.D. 04/15/2017 7:34 PM Dictated Date/Time: 04/15/2017 7:30 PM
--- NOTE | 2017-04-15 19:43 | DIAGNOSTIC IMAGING REPORT ---
CT OF THE CERVICAL SPINE WITHOUT CONTRAST CLINICAL HISTORY: trauma COMPARISON STUDY: No previous studies for comparison. TECHNIQUE: Helical axial images of the cervical spine were obtained without IV contrast. Sagittal and coronal reconstructions were viewed. A dose lowering technique was utilized adhering to the principles of ALARA. FINDINGS: No acute cervical spine fracture is present. Craniocervical junction is intact. There is slight anterolisthesis of C2 on C3, C3 on C4 and C4 on C5. There is marked disc space narrowing and osteophytosis at C5-C6. There is no prevertebral edema. Several thyroid nodules are present within the right thyroid lobe which is asymmetrically enlarged. IMPRESSION: No acute cervical spine fracture or subluxation. Electronically signed by: Grupo Fletcher M.D. 04/15/2017 7:41 PM Dictated Date/Time: 04/15/2017 7:34 PM
[2017-04-15] MEDS ORDERED: ATOR-24 PO (19:55)
[2017-04-15] MEDS ORDERED: MIRA1TAB3 PO (19:55)
[2017-04-15] MEDS ORDERED: CRAN250T PO (19:55)
[2017-04-15 19:58] LABS: ALT/SGPT 31 U/L (12-78); BLOOD UREA NITROGEN 28 mg/dl (7-18); CALCIUM 9.9 mg/dl (8.5-10.1); CARBON DIOXIDE 28 mmol/L (21-32); CREATININE 0.97 mg/dl (0.60-1.20); GLUCOSE 119 mg/dl (70-99); LIPASE 240 U/L (73-393); POTASSIUM 3.5 mmol/L (3.5-5.1); SODIUM 138 mmol/L (136-145)
[2017-04-15 20:00] LABS: BASO % 0.1 %; BASO ABS # 0.02 K/uL (0-0.2); EOS % 0.4 %; EOS ABS # 0.06 K/uL (0-0.5); IG# 0.04 K/uL (0.00-0.02); LYMPH ABS # 1.05 K/uL (1.2-3.4); MONO % 6.3 %; MONO ABS # 0.95 K/uL (0.11-0.59); NEUT % 85.9 %; NEUT ABS # 12.94 K/uL (1.4-6.5)
[2017-04-15 20:03] LABS: ALKALINE PHOSPHATASE 63 U/L (45-117); AST/SGOT 32 U/L (15-37); TOTAL PROTEIN 8.5 gm/dl (6.4-8.2)
--- NOTE | 2017-04-15 20:03 | DIAGNOSTIC IMAGING REPORT ---
CT OF THE ABDOMEN AND PELVIS WITHOUT CONTRAST CLINICAL HISTORY: n/v/d, trauma COMPARISON STUDY: CT of the abdomen and pelvis November 12, 2016. TECHNIQUE: Axial images of the abdomen and pelvis were obtained without IV contrast. Images were reviewed in the axial, sagittal, and coronal planes. A dose lowering technique was utilized adhering to the principles of ALARA. FINDINGS: Lung bases are clear. A small hiatal hernia is noted. Evaluation of the abdomen and pelvis is suboptimal on this unenhanced exam. There is no evidence for traumatic injury to the liver, spleen, adrenal glands, kidneys or pancreas on this unenhanced exam. 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 No hemoperitoneum or pneumoperitoneum is present. Caliber of small and large bowel are normal. No acute lumbar spine or pelvic fractures are identified. There is increased density within the anterior epidural space at the lower lumbar and upper sacral levels. This may be artifactual. IMPRESSION: 1. No acute traumatic findings within the abdomen or pelvis on unenhanced exam. No bowel obstruction. 2. Apparent increased attenuation of the anterior epidural space within the lower lumbar canal and upper sacral canal. This is probably artifactual or related to degenerative disc disease however an epidural hematoma cannot be completely excluded. This could be correlated with\lower extremity pain. An MRI of the lumbar spine could be obtained for further evaluation. Electronically signed by: Grupo Fletcher M.D. 04/15/2017 8:02 PM Dictated Date/Time: 04/15/2017 7:47 PM
--- NOTE | 2017-04-15 22:04 | EMERGENCY ROOM VISIT NOTE ---
History Report prepared by Yuridia: Marah Moreno Under the Supervision of: Dr. Brigida Cruz D.O. First contact with patient: 18:24 Stated Complaint: SYNCOPE, FALL, HEAD INJURY, VOMITED, History of Present Illness The patient is an 87 year old female who presents to the Emergency Room with complaints of an episode of syncope occurring prior to arrival. The patient states that she was having a difficult time using the restroom because her stools were so hard. She reports that she took some prunes and shortly after started getting nauseous. She reports that she doesn't remember exactly when, but she then lost consciousness and fell. She states that she did hit her head on something, but is unsure what. She denies anyone being with her when she fell. The patient states that when she came to she started vomiting and lost control of her bowels. She reports that at this time she pressed her life alert button. The patient notes that she has been having chills, but believes they are from the weather. The patient denies any current nausea, dizziness, lightheadedness, abdominal pain, headache, chest pain, shortness of breath, neck pain, fevers, and any new back pain. Source of History: patient Onset: prior to arrival Position: other (global) Quality: other (syncope) Timing: other (episode) Associated Symptoms: + chills, + nausea, + vomiting, No fevers, No headache , No neck pain, No chest pain, No SOB, No abdominal pain, No back pain Note: The patient complains of bowel incontinence. The patient denies dizziness and lightheadedness. Review of Systems See HPI for pertinent positives & negatives. A total of 10 systems reviewed and were otherwise negative. Past Medical & Surgical Medical Problems: (1) Chr Peptic Ulcer W Hem (2) Chronic Kidney Disease, Unspecified (3) Depressive Disorder Nec (4) Diab Angella Wo Compl, Type Ii Or Unspec Type, Not Uncntrld (5) Generalized Anxiety Dis (6) Hypercholesteremia (7) Hyperlipidemia Nec/Nos (8) Hypertension Nos (9) Low back pain (10) Osteoarthros Nos-Unspec (11) SEIZURE (12) UTI (urinary tract infection) Surgical Problems: (1) S/P hysterectomy Family History Cancer Diabetes mellitus Gallbladder disease Heart disease Hypertension Seizures Social History Smoking Status: Never Smoker Alcohol Use: none Drug Use: none Marital Status: single Housing Status: lives alone Occupation Status: retired Current/Historical Medications Scheduled Atorvastatin (Lipitor), 40 MG PO HS Cholecalciferol (Vitamin D3), 1,000 UNITS PO DAILY Cranberry (Vaccinium Macrocarp (Cranberry Extract), 250 MG PO DAILY Melatonin (Kp Melatonin), 3 MG PO HS Mirabegron (Myrbetriq Er), 50 MG PO DAILY Ranitidine (Zantac), 150 MG PO Q12 Sertraline HCl (Sertraline HCl), 150 MG PO QAM Temazepam (Restoril), 7.5 MG PO HS Allergies Coded Allergies: Penicillins (Verified Allergy, Unknown, UNKNOWN, 04/15/17) Aspirin (Verified Adverse Reaction, Unknown, INTOLERANT TO ASA, 04/15/17) Physical Exam Vital Signs Date Time Temp Pulse Resp B/P (MAP) Pulse Ox O2 Delivery O2 Flow Rate FiO2 04/15/17 22:31 77 04/15/17 21:33 36.6 70 18 105/62 97 Room Air 04/15/17 21:29 139/74 114/67 105/62 04/15/17 19:48 77 18 142/72 96 Room Air 04/15/17 18:36 36.8 63 18 188/72 96 Room Air 04/15/17 18:33 60 Physical Exam GENERAL: alert, well appearing, well nourished, no distress, non-toxic, patient with dried emesis on her clothing EYE EXAM: normal conjunctiva, PERRL and EOM's grossly intact OROPHARYNX: no exudate, no erythema, lips, buccal mucosa, and tongue normal and mucous membranes are mildly dry NECK: supple, no nuchal rigidity, no adenopathy, non-tender LUNGS: Clear to auscultation. Normal chest wall mechanics HEART: no murmurs, S1 normal and S2 normal ABDOMEN: abdomen soft, non-tender, normo-active bowel sounds, no masses, no rebound or guarding. BACK: Back is symmetrical on inspection and there is no deformity, no midline tenderness, no CVA tenderness. SKIN: no rashes and no bruising, pale UPPER EXTREMITIES: upper extremities are grossly normal. LOWER EXTREMITIES: No pitting edema. NEURO EXAM: Normal sensorium, cranial nerves II-XII grossly intact, normal speech, no gross weakness of arms, no gross weakness of legs. Medical Decision & Procedures ER Provider Diagnostic Interpretation: Radiology results have been interpreted by the radiologist and reviewed by me. CT OF THE ABDOMEN AND PELVIS WITHOUT CONTRAST CLINICAL HISTORY: n/v/d, trauma COMPARISON STUDY: CT of the abdomen and pelvis November 12, 2016. TECHNIQUE: Axial images of the abdomen and pelvis were obtained without IV contrast. Images were reviewed in the axial, sagittal, and coronal planes. A dose lowering technique was utilized adhering to the principles of ALARA. FINDINGS: Lung bases are clear. A small hiatal hernia is noted. Evaluation of the abdomen and pelvis is suboptimal on this unenhanced exam. There is no evidence for traumatic injury to the liver, spleen, adrenal glands, kidneys or pancreas on this unenhanced exam. 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 No hemoperitoneum or pneumoperitoneum is present. Caliber of small and large bowel are normal. No acute lumbar spine or pelvic fractures are identified. There is increased density within the anterior epidural space at the lower lumbar and upper sacral levels. This may be artifactual. IMPRESSION: 1. No acute traumatic findings within the abdomen or pelvis on unenhanced exam. No bowel obstruction. 2. Apparent increased attenuation of the anterior epidural space within the lower lumbar canal and upper sacral canal. This is probably artifactual or related to degenerative disc disease however an epidural hematoma cannot be completely excluded. This could be correlated with\lower extremity pain. An MRI of the lumbar spine could be obtained for further evaluation. Electronically signed by: Grupo Fletcher M.D. 04/15/2017 8:02 PM Dictated Date/Time: 04/15/2017 7:[address] OF THE CERVICAL SPINE WITHOUT CONTRAST CLINICAL HISTORY: trauma COMPARISON STUDY: No previous studies for comparison. TECHNIQUE: Helical axial images of the cervical spine were obtained without IV contrast. Sagittal and coronal reconstructions were viewed. A dose lowering technique was utilized adhering to the principles of ALARA. FINDINGS: No acute cervical spine fracture is present. Craniocervical junction is intact. There is slight anterolisthesis of C2 on C3, C3 on C4 and C4 on C5. There is marked disc space narrowing and osteophytosis at C5-C6. There is no prevertebral edema. Several thyroid nodules are present within the right thyroid lobe which is asymmetrically enlarged. IMPRESSION: No acute cervical spine fracture or subluxation. Electronically signed by: Grupo Fletcher M.D. 04/15/2017 7:41 PM Dictated Date/Time: 04/15/2017 7:[address] OF THE HEAD WITHOUT CONTRAST CLINICAL HISTORY: trauma, LOC COMPARISON STUDY: Head CT April 10, 2016. CT DOSE: 638.56 mGycm TECHNIQUE: Helical axial images of the head were obtained without IV contrast. Automated exposure control was utilized for the study. A dose lowering technique was utilized adhering to the principles of ALARA. FINDINGS: No acute intracranial hemorrhage, midline shift or mass effect is present. Ventricular system is stable. Basilar cisterns are patent. There are no extra-axial collections. White matter hypodensities are unchanged and suggest small vessel disease. There are no findings to suggest acute dural sinus thrombosis or acute territorial infarct. No calvarial fracture is identified. There are multiple locules of gas within the posterior scalp. This suggests a laceration. IMPRESSION: 1. No acute intracranial findings. 2. Locules of gas within the posterior scalp which suggests a laceration. No calvarial fracture. Electronically signed by: Grupo Fletcher M.D. 04/15/2017 7:34 PM Dictated Date/Time: 04/15/2017 7:30 PM Laboratory Results 04/15/17 19:04 Red Blood Count 4.42, Mean Corpuscular Volume 95.2, Mean Corpuscular Hemoglobin 33.5, Mean Corpuscular Hemoglobin Concent 35.2, Mean Platelet Volume 10.0, Neutrophils (%) (Auto) 85.9, Lymphocytes (%) (Auto) 7.0, Monocytes (%) (Auto) 6.3, Eosinophils (%) (Auto) 0.4, Basophils (%) (Auto) 0.1, Neutrophils # (Auto) 12.94, Lymphocytes # (Auto) 1.05, Monocytes # (Auto) 0.95, Eosinophils # (Auto) 0.06, Basophils # (Auto) 0.02 04/15/17 19:04 Test 04/15/17 19:04 04/15/17 19:14 04/15/17 19:39 04/15/17 19:48 White Blood Count 15.06 K/uL (4.8-10.8) Red Blood Count 4.42 M/uL (4.2-5.4) Hemoglobin 14.8 g/dL (12.0-16.0) Hematocrit 42.1 % (37-47) Mean Corpuscular Volume 95.2 fL (80-100) Mean Corpuscular Hemoglobin 33.5 pg (25-34) Mean Corpuscular Hemoglobin Concent 35.2 g/dl (32-36) Platelet Count 179 K/uL (130-400) Mean Platelet Volume 10.0 fL (7.4-10.4) Neutrophils (%) (Auto) 85.9 % Lymphocytes (%) (Auto) 7.0 % Monocytes (%) (Auto) 6.3 % Eosinophils (%) (Auto) 0.4 % Basophils (%) (Auto) 0.1 % Neutrophils # (Auto) 12.94 K/uL (1.4-6.5) Lymphocytes # (Auto) 1.05 K/uL (1.2-3.4) Monocytes # (Auto) 0.95 K/uL (0.11-0.59) Eosinophils # (Auto) 0.06 K/uL (0-0.5) Basophils # (Auto) 0.02 K/uL (0-0.2) RDW Standard Deviation 43.8 fL (36.4-46.3) RDW Coefficient of Variation 12.7 % (11.5-14.5) Immature Granulocyte % (Auto) 0.3 % Immature Granulocyte # (Auto) 0.04 K/uL (0.00-0.02) Prothrombin Time 10.6 SECONDS (9.0-12.0) Prothromb Time International Ratio 1.0 (0.9-1.1) Anion Gap 5.0 mmol/L (3-11) Est Creatinine Clear Calc Drug Dose 36.4 ml/min Estimated GFR () 60.9 Estimated GFR (Non- 52.5 BUN/Creatinine Ratio 29.1 (10-20) Calcium Level 9.9 mg/dl (8.5-10.1) Magnesium Level 1.9 mg/dl (1.8-2.4) Total Bilirubin 0.9 mg/dl (0.2-1) Aspartate Amino Transf (AST/SGOT) 32 U/L (15-37) Alanine Aminotransferase (ALT/SGPT) 31 U/L (12-78) Alkaline Phosphatase 63 U/L (45-117) Troponin I < 0.015 ng/ml (0-0.045) Total Protein 8.5 gm/dl (6.4-8.2) Albumin 4.0 gm/dl (3.4-5.0) Globulin 4.5 gm/dl (2.5-4.0) Albumin/Globulin Ratio 0.9 (0.9-2) Lipase 240 U/L (73-393) Bedside Lactic Acid Venous 1.09 mmol/L (0.90-1.70) Urine WBC (Auto) 5-10 /hpf (0-5) Urine RBC (Auto) 0-4 /hpf (0-4) Urine Hyaline Casts (Auto) 1-5 /lpf (0-5) Urine Epithelial Cells (Auto) >30 /lpf (0-5) Urine Bacteria (Auto) 1+ (NEG) Urine Yeast (Auto) (NONE PRSENT) Date/Time Source Procedure Growth Status 04/15/17 20:40 Stool C.difficile Toxin B Gene (PCR) - Final No C. difficile toxin B gene detected Complete Laboratory results per my review. Medications Administered Medications (Trade) Dose Ordered Sig/Shanice Route Start Time Stop Time Status Last Admin Dose Admin Sodium Chloride 1,000 ml @ 999 mls/hr Q1H1M STAT IV 04/15/17 18:31 04/15/17 19:31 DC 04/15/17 19:13 999 MLS/HR Ondansetron HCl (Zofran Inj) 4 mg NOW STAT IV 04/15/17 18:31 04/15/17 18:34 DC 04/15/17 19:13 4 MG Sodium Chloride 1,000 ml @ 200 mls/hr Q5H STAT IV 04/15/17 21:06 04/16/17 02:05 04/15/17 21:34 200 MLS/HR Ondansetron HCl (Zofran Inj) 4 mg NOW STAT IV 04/15/17 21:22 04/15/17 21:23 DC 04/15/17 21:36 4 MG Diphtheria/ Pertussis/Tetanus Vacc (Adacel Inj) 0.5 ml ONCE ONCE IM. 04/15/17 22:15 04/15/17 22:16 DC 04/15/17 22:17 0.5 ML Procedure Location: occipital region on the scalp Total length: 4 cm Complexity: simple Verbal consent was obtained after the risks and benefits were explained, including but not limited to bleeding, scarring, infection, pain, and bone/joint /nerve damage. At this time, the risks of the procedure are less than the risks of NOT performing the procedure. A time out was taken and the correct patient and site identified. The target area was anesthetized with 3 ml of 1% lidocaine with epinephrine. Copious irrigation was performed using normal saline. The wound was explored for foreign bodies and none found. Examination revealed no injury to deep structures such as tendons, bone, or significant blood vessels. Debridement was not performed. The wound edges were approximated using nikia, 5 nikia placed. Hemostasis and excellent approximation was achieved. Detailed wound care instructions and signs and symptoms of infection reviewed with the patient. No complications and the patient tolerated the procedure well. ECG Indication: syncope Rate (beats per minute): 72 Rhythm: sinus rhythm Findings: no acute ischemic change, other (normal axis, normal intervals, erratic baseline) ED Course 1823: The patient was evaluated in room C10. A complete history and physical exam was performed. 1830: Ordered Zofran Inj 4 mg IV, NSS 1000 ml @ 999 mls/hr IV. 2024: I interpreted the patient's EKG at this time. 2105: Ordered NSS 1000 ml @ 200 mls/hr IV. 2108: I reevaluated the patient and she is still feeling nauseous. She has had recurrent diarrhea here. the patient feels lightheaded and dizzy when trying to get up to use the restroom. Both her and her family have expressed concern regarding her going home and possibly falling again. 2121: Ordered Zofran Inj 4 mg IV. 2206: I reviewed the patient's case with Dr. Blanco- [facility] [place] [facility]. She will evaluate the patient for further management. 2214: Ordered Adacel Inj 0.5 ml IM. Medical Decision The patient is an 87 year old female who presents to the Emergency Room with complaints of an episode of syncope occurring prior to arrival. Differential diagnosis: Etiologies such as gastroenteritis, food borne illness, infections, appendicitis , diverticulitis, inflammatory bowel disease, obstruction, GI bleed, biliary pathology, vasovagal event, infection, hypoglycemia, electrolyte abnormalities, cardiac sources, intracerebral event, toxicologic, neurologic, fracture, dislocation, intra-abdominal, pneumothorax, intrathoracic , intracranial, neurologic, as well as other traumatic pathologies were entertained. Medication Reconcilliation Current Medication List: was personally reviewed by me Blood Pressure Screening Patient's blood pressure: Normal blood pressure Will be further monitored by the hospitalist. Consults Time Called: 2200 Consulting Physician: Dr. Yanique STEIN Hospitalist Returned Call: [phone] I reviewed the patient's case with Dr. Yanique STEIN Hospitalist. She will evaluate the patient for further management. Impression Primary Impression: Syncope Additional Impressions: CHI (closed head injury) Scalp laceration Vomiting and diarrhea Dehydration Scribe Attestation The scribe's documentation has been prepared under my direction and personally reviewed by me in its entirety. I confirm that the note above accurately reflects all work, treatment, procedures, and medical decision making performed by me. Departure Information Dispostion Being Evaluated By Hospitalist Referrals Brant Oscar M.D. (PCP) Problem Qualifiers Primary Impression: Syncope Syncope type: unspecified Qualified Codes: R55 - Syncope and collapse Additional Impressions: CHI (closed head injury) Encounter type: initial encounter Qualified Codes: S09.90XA - Unspecified injury of head, initial encounter Scalp laceration Encounter type: initial encounter Qualified Codes: S01.01XA - Laceration without foreign body of scalp, initial encounter
--- NOTE | 2017-04-15 22:12 | History and Physical ---
History & Physical Date & Time of Service: Apr 15, 2017 at 22:11 Chief Complaint: Syncope, Fall, Head Injury, Vomited, Primary Care Physician: Brant Oscar M.D. History of Present Illness Source: patient, hospital records This is an 87 yo f with a h/o hld, gi bleed that is presenting to us with a syncopal episode which occurred at approx 1700. The patient states that yesterday she was feeling constipated and took 6 prunes to help with this. Today she had sudden onset of non bloody vomiting and diarrhea at approx 1630 today. She states that the diarrhea is very frequent, large amounts, watery with mucus and no blood/ dark in colour. She got up to go to the bathroom to take a Zofran when she suddenly felt light headed and had a syncopal episode. She believes it was only a few minutes in length and she did not feel confused after. She did not have chest pain or SOB prior to the episode. She did hit her head when she fell but no headache at this time. She had no history of cardiac arrhythmia, ID or CVA. She is not on a blood thinner. She currently continues to suffer from frequent stools, cramping abdominal pain when she has to have a BM only and nausea/ vomiting is improved. Can not recall any peculiar foods, recent travel and no sick contacts. Past Medical/Surgical History PMHx: HLD Overactive bladder H/O GI bleed Depression/ anxiety PSHx: Hysterectomy Family History Cancer Diabetes mellitus Gallbladder disease Heart disease Hypertension Seizures Social History Smoking Status: Never Smoker Smokeless Tobacco Use: No Alcohol Use: none Drug Use: none Marital Status: single Housing status: lives alone Occupational Status: retired Immunizations History of Influenza Vaccine: Yes Influenza Vaccine Date: Dec 18, 2008 History of Tetanus Vaccine?: No History of Pneumococcal: No Pneumococcal Date: Feb 25, 2005 History of Hepatitis B Vaccine: No Multi-Drug Resistant Organisms History of MDRO: No Allergies Coded Allergies: Penicillins (Verified Allergy, Unknown, UNKNOWN, 04/15/17) Aspirin (Verified Adverse Reaction, Unknown, INTOLERANT TO ASA, 04/15/17) Home Medications Scheduled Atorvastatin (Lipitor), 40 MG PO HS Cholecalciferol (Vitamin D3), 1,000 UNITS PO DAILY Cranberry (Vaccinium Macrocarp (Cranberry Extract), 250 MG PO DAILY Melatonin (Kp Melatonin), 3 MG PO HS Mirabegron (Myrbetriq Er), 50 MG PO DAILY Ranitidine (Zantac), 150 MG PO Q12 Sertraline HCl (Sertraline HCl), 150 MG PO QAM Sulfa/Trimethoprim (Bactrim Ds 800MG/160MG), 1 TAB PO BID Temazepam (Restoril), 7.5 MG PO HS Review of Systems Constitutional: No fever, No chills, No sweats Eyes: No worsening of vision ENT: No hearing loss Respiratory: + cough (BL and unchanged "for a long time" ), No sputum, No wheezing, No shortness of breath, No dyspnea on exertion, No dyspnea at rest Cardiovascular: No chest pain, No edema Abdomen: + nausea, + vomiting, + diarrhea, + constipation, No pain, No GI bleeding Musculoskeletal: No joint pain, No muscle pain Genitourinary - Female: No dysuria, No hematuria Neurologic: No weakness, No numbness/tingling, No balance problems Psychiatric: No depression symptoms Endocrine: No fatigue Hematologic / Lymphatic: No abnormal bleeding/bruising Integumentary: No rash Physical Exam Vital Signs Date Time Temp Pulse Resp B/P (MAP) Pulse Ox O2 Delivery O2 Flow Rate FiO2 04/15/17 21:33 36.6 70 18 105/62 97 Room Air 04/15/17 21:29 139/74 114/67 105/62 04/15/17 19:48 77 18 142/72 96 Room Air 04/15/17 18:36 36.8 63 18 188/72 96 Room Air 04/15/17 18:33 60 General Appearance: no apparent distress Head: normocephalic, + pertinent finding (laceration on posterior aspect of head) Eyes: normal inspection ENT: normal ENT inspection, + pertinent finding (dry mucus membranes) Neck: no adenopathy Respiratory/Chest: normal breath sounds, no respiratory distress, no accessory muscle use Cardiovascular: regular rate, rhythm, no murmur, normal peripheral pulses, + systolic murmur (3/6) Abdomen/GI: non tender, soft, + abnormal bowel sounds (hyperactive) Back: normal inspection, no CVA tenderness, normal range of motion Extremities/Musculoskelatal: normal inspection, no calf tenderness, no pedal edema, normal range of motion Neurologic/Psych: alert, normal mood/affect, oriented x 3 Skin: normal color, warm/dry, no rash Lymphatic: no adenopathy Diagnostics Laboratory Results Results Past 24 Hours Test 04/15/17 19:04 04/15/17 19:14 04/15/17 19:39 04/15/17 19:48 Range/Units White Blood Count 15.06 4.8-10.8 K/uL Red Blood Count 4.42 4.2-5.4 M/uL Hemoglobin 14.8 12.0-16.0 g/dL Hematocrit 42.1 37-47 % Mean Corpuscular Volume 95.2 80-100 fL Mean Corpuscular Hemoglobin 33.5 25-34 pg Mean Corpuscular Hemoglobin Concent 35.2 32-36 g/dl Platelet Count 179 130-400 K/uL Mean Platelet Volume 10.0 7.4-10.4 fL Neutrophils (%) (Auto) 85.9 % Lymphocytes (%) (Auto) 7.0 % Monocytes (%) (Auto) 6.3 % Eosinophils (%) (Auto) 0.4 % Basophils (%) (Auto) 0.1 % Neutrophils # (Auto) 12.94 1.4-6.5 K/uL Lymphocytes # (Auto) 1.05 1.2-3.4 K/uL Monocytes # (Auto) 0.95 0.11-0.59 K/uL Eosinophils # (Auto) 0.06 0-0.5 K/uL Basophils # (Auto) 0.02 0-0.2 K/uL RDW Standard Deviation 43.8 36.4-46.3 fL RDW Coefficient of Variation 12.7 11.5-14.5 % Immature Granulocyte % (Auto) 0.3 % Immature Granulocyte # (Auto) 0.04 0.00-0.02 K/uL Prothrombin Time 10.6 9.0-12.0 SECONDS Prothromb Time International Ratio 1.0 0.9-1.1 Sodium Level 138 136-145 mmol/L Potassium Level 3.5 3.5-5.1 mmol/L Chloride Level 105 98-107 mmol/L Carbon Dioxide Level 28 21-32 mmol/L Anion Gap 5.0 3-11 mmol/L Blood Urea Nitrogen 28 7-18 mg/dl Creatinine 0.97 0.60-1.20 mg/dl Est Creatinine Clear Calc Drug Dose 36.4 ml/min Estimated GFR () 60.9 Estimated GFR (Non- 52.5 BUN/Creatinine Ratio 29.1 10-20 Random Glucose 119 70-99 mg/dl Calcium Level 9.9 8.5-10.1 mg/dl Magnesium Level 1.9 1.8-2.4 mg/dl Total Bilirubin 0.9 0.2-1 mg/dl Aspartate Amino Transf (AST/SGOT) 32 15-37 U/L Alanine Aminotransferase (ALT/SGPT) 31 12-78 U/L Alkaline Phosphatase 63 45-117 U/L Troponin I < 0.015 0-0.045 ng/ml Total Protein 8.5 6.4-8.2 gm/dl Albumin 4.0 3.4-5.0 gm/dl Globulin 4.5 2.5-4.0 gm/dl Albumin/Globulin Ratio 0.9 0.9-2 Lipase 240 73-393 U/L Bedside Lactic Acid Venous 1.09 0.90-1.70 mmol/L Urine Color DK YELLOW Urine Appearance CLOUDY CLEAR Urine pH 5.0 4.5-7.5 Urine Specific [place] 1.024 1.000-1.030 Urine Protein NEG NEG Urine Glucose (UA) NEG NEG Urine Ketones NEG NEG Urine Occult Blood NEG NEG Urine Nitrite NEG NEG Urine Bilirubin NEG NEG Urine Urobilinogen NEG NEG Urine Leukocyte Esterase SMALL NEG Urine WBC (Auto) 5-10 0-5 /hpf Urine RBC (Auto) 0-4 0-4 /hpf Urine Hyaline Casts (Auto) 1-5 0-5 /lpf Urine Epithelial Cells (Auto) >30 0-5 /lpf Urine Bacteria (Auto) 1+ NEG Urine Yeast (Auto) NONE PRSENT Microbiology Results 04/15/17 C.difficile Toxin B Gene (PCR), Received Pending 04/15/17 Shiga Toxin Test, Received Pending 04/15/17 Stool Culture, Received Pending 04/15/17 Urine Culture, Ordered Pending Diagnostic Radiology [~ rep ct add3]] CHEST ONE VIEW PORTABLE CLINICAL HISTORY: vomiting, syncope, assess for aspiration. COMPARISON STUDY: Chest radiograph October 08, [address] March 07, 2017. FINDINGS: Lung volumes are normal. No pneumothorax or pleural effusion is noted. There is no consolidation. Pulmonary vascularity is normal. Cardiomediastinal silhouette is unremarkable. Mild upper mediastinal widening is unchanged and due to a thyroid goiter as shown on prior chest CT. IMPRESSION: No acute cardiopulmonary findings. CT OF THE ABDOMEN AND PELVIS WITHOUT CONTRAST CLINICAL HISTORY: n/v/d, trauma COMPARISON STUDY: CT of the abdomen and pelvis November 12, 2016. TECHNIQUE: Axial images of the abdomen and pelvis were obtained without IV contrast. Images were reviewed in the axial, sagittal, and coronal planes. A dose lowering technique was utilized adhering to the principles of ALARA. FINDINGS: Lung bases are clear. A small hiatal hernia is noted. Evaluation of the abdomen and pelvis is suboptimal on this unenhanced exam. There is no evidence for traumatic injury to the liver, spleen, adrenal glands, kidneys or pancreas on this unenhanced exam. 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 No hemoperitoneum or pneumoperitoneum is present. Caliber of small and large bowel are normal. No acute lumbar spine or pelvic fractures are identified. There is increased density within the anterior epidural space at the lower lumbar and upper sacral levels. This may be artifactual. IMPRESSION: 1. No acute traumatic findings within the abdomen or pelvis on unenhanced exam. No bowel obstruction. 2. Apparent increased attenuation of the anterior epidural space within the lower lumbar canal and upper sacral canal. This is probably artifactual or related to degenerative disc disease however an epidural hematoma cannot be completely excluded. This could be correlated with\\lower extremity pain. An MRI of the lumbar spine could be obtained for further evaluation. EKG Normal sinus rhythm Normal ECG When compared with ECG of 08-OCT-2016 14:50, No significant change was found HR 72 Impression Assessment and Plan This is an 87 yo f suffering from syncope most likely secondary to dehydration from acute onset viral gastroenteritis reflected with positive orthostatics and an elevated BUN however with the patient's history of mild on an echo from 2014 concerning that this contributed to the syncope Syncope secondary to dehydration vs cardiac nature - tele obs - NSS 2 L received in ED - to continue NSS with 20 Meq of KCL @ 100cc/h - repeat echo in am - I&O and daily weight - stool cultures pending as well as Ucx ( UA abnormal but most likely contaminate) - repeat troponin and EKG in am - defer consult to [facility] to discretion of am team/ results of echo HLD - Atorvastatin 40 mg daily Overactive Bladder - Myrbetriq 50 mg held GERD/ H/o GI bleed - Zantac 150 mg Depression - Sertraline 150 mg daily - Restoril 7.5 mg HS DVT prophylaxis SCD and heparin Full code Attending addendum: I have physically seen this patient, have supervised the medical residents activities, and agree with the H&P unless as otherwise noted. Assessment and Plan: Syncope with collapse/dehydration-- The patient will be admitted to telemetry for serial cardiac enzymes, serial EKG's, cardiac rhythm monitoring and a 2-D echocardiogram with Dopplers. NSS + KCl 20 mEq at 100 ML's per hour Status post 2 L NSS in the ED Follow stool culture results Review laboratories in the a.m. Hyperlipidemia-- Continue atorvastatin 40 mg daily GERD/GI bleed history-- Continue Zantac 150 mg daily Depression/insomnia-- Continue sertraline 100 mg daily and Restoril 7.5 mg at bedtime Overactive bladder-- Hold Myrbetriq Level of Care Telemetry Advanced Directives Existing Advance Directive: No Existing Living Will: No Existing Power of Drier Transfer Car Operator: No Resuscitation Status FULL RESUSCITATION VTE Prophylaxis Risk Level: Moderate Given or contraindicated: Unfractionated heparin SQ, SCD's Social Service Consult >80 yr.& Lives Alone Additional Copies To Brant Oscar M.D.
[2017-04-15] MEDS ORDERED: ALUMINUM/MAGNESIUM/SIMETH (MAALOX MAX) 30 ML UDC PO PRN (22:15)
[2017-04-15] MEDS ORDERED: ONDANSETRON INJ 2 MG/ML 2 ML VIAL IV PRN (22:15)
[2017-04-15] MEDS ORDERED: DIPHTHERIA/TETANUS/PERTUSSIS 0.5 ML SYR/VIAL IM. ONE (22:15)
[2017-04-15] MEDS ORDERED: ACETAMINOPHEN 325 MG TAB PO PRN (22:15)
[2017-04-15] MEDS ORDERED: BISMUTH SUBSALICYLATE SUSP PO PRN (22:15)
--- NOTE | 2017-04-15 22:27 | DIAGNOSTIC IMAGING REPORT ---
CHEST ONE VIEW PORTABLE CLINICAL HISTORY: vomiting, syncope, assess for aspiration. COMPARISON STUDY: Chest radiograph October 08, [address] March 07, 2017. FINDINGS: Lung volumes are normal. No pneumothorax or pleural effusion is noted. There is no consolidation. Pulmonary vascularity is normal. Cardiomediastinal silhouette is unremarkable. Mild upper mediastinal widening is unchanged and due to a thyroid goiter as shown on prior chest CT. IMPRESSION: No acute cardiopulmonary findings. Electronically signed by: Grupo Fletcher M.D. 04/15/2017 10:25 PM Dictated Date/Time: 04/15/2017 10:24 PM
[2017-04-15] MEDS ORDERED: LIDO/EPINEPHRINE/SOD BICARB 20 ML VIAL INFIL ONE (22:30)
[2017-04-15] MEDS ORDERED: IV FLUIDS COMPLETED PRN (23:00)
[2017-04-16] VITALS: BP 145/68; PULSE 72; TEMP 37.2; O2SAT 97; Ht 157.5 cm; Wt 63.8 kg
[2017-04-16] MEDS: NSS + 20MEQ KCL 1000ML 1,000 ML IV SCH ×2 (00:28→10:05)
[2017-04-16 04:17] VITALS: BP 123/65; PULSE 71; TEMP 36.8; O2SAT 93
[2017-04-16 07:10] VITALS: BP 144/75; PULSE 70; TEMP 36.9; O2SAT 95
[2017-04-16 08:20] LABS: BASO % 0.2 %; BASO ABS # 0.02 K/uL (0-0.2); EOS % 0.6 %; EOS ABS # 0.05 K/uL (0-0.5); HEMATOCRIT 38.3 % (37-47); HEMOGLOBIN 13.1 g/dL (12.0-16.0); IG# 0.02 K/uL (0.00-0.02); LYMPH % 9.5 %; LYMPH ABS # 0.77 K/uL (1.2-3.4); MEAN CORPUSCULAR HEMOGLOBIN 32.5 pg (25-34); MEAN CORPUSCULAR HGB CONC 34.2 g/dl (32-36); MEAN PLATELET VOLUME 10.1 fL (7.4-10.4); MONO % 9.7 %; MONO ABS # 0.79 K/uL (0.11-0.59); NEUT % 79.8 %; NEUT ABS # 6.49 K/uL (1.4-6.5); PLATELET COUNT 172 K/uL (130-400); RED CELL DISTRIBUTION WIDTH CV 12.8 % (11.5-14.5); RED CELL DISTRIBUTION WIDTH SD 44.5 fL (36.4-46.3); WHITE BLOOD COUNT 8.14 K/uL (4.8-10.8)
[2017-04-16 08:37] LABS: ALBUMIN 3.5 gm/dl (3.4-5.0); CALCIUM 9.4 mg/dl (8.5-10.1); CREATININE 0.81 mg/dl (0.60-1.20)
[2017-04-16 08:40] LABS: TOTAL PROTEIN 7.4 gm/dl (6.4-8.2)
[2017-04-16] MEDS ORDERED: SERTRALINE HCL 100 MG TAB PO SCH (09:00)
[2017-04-16] MEDS ORDERED: CRANBERRY PO SCH (09:00)
[2017-04-16] MEDS ORDERED: CHOLECALCIFEROL 1000 INTER.UNIT TAB PO SCH (09:00)
[2017-04-16] MEDS ORDERED: MIRABEGRON ER 25 MG TAB PO SCH (09:00)
[2017-04-16] MEDS ORDERED: HEPARIN SOD 5000 UNIT/0.5 ML CARP SQ SCH (09:00)
[2017-04-16] MEDS ORDERED: RANITIDINE HCL 150 MG TAB PO SCH (09:00)
[2017-04-16 15:21] VITALS: BP 155/65; PULSE 72; TEMP 36.6; O2SAT 93
[2017-04-16] MEDS ORDERED: SULF800T23 PO (16:35)
--- NOTE | 2017-04-16 16:43 | Discharge Instructions ---
Discharge Instructions Date of Service Apr 16, 2017. Admission Reason for Admission: Dehydration, Syncope Discharge Discharge Diagnosis / Problem: Dehydration Discharge Goals Goal(s): Decrease discomfort, Improve function Activity Recommendations Activity Limitations: per Instructions/Follow-up section . Instructions / Follow-Up Instructions / Follow-Up You were admitted after you had a syncopal episode which is likely due to dehydration from the vomiting and diarrhea. You were treated with IV fluids and was monitored for any blood pressure changes with position. You also had an echo of your heart which is currently pending. You also had some lab work to evaluate loose stools including stool cultures and test for C. difficile and they were negative. It is likely your symptoms are due to a viral gastroenteritis. You were also noted to have some bacteria growing in the urine suggestive of a urinary tract infection. Urinary tract infection: - Use Bactrim DS 800-160 mg twice daily for 3 days Syncopal episode: Likely because of dehydration - Continue to keep yourself hydrated and drink lots of fluids - Follow up with your echo results from your PCP - If you have intractable nausea/vomiting with decreased oral intake please return to the ER or go to your PCP Hyperlipidemia - Atorvastatin 40 mg daily Overactive Bladder -Continue Myrbetriq 50 mg GERD -Continue Zantac 150 mg Depression - Sertraline 150 mg daily - Restoril 7.5 mg HS Please follow-up with your family physician in the next 3-4 days. We will fax the result of the echo to your PCP and he/she can discuss it with you. Current Hospital Diet Patient's current hospital diet: Regular Diet Discharge Diet Recommended Diet: Regular Diet Pending Studies Studies pending at discharge: yes List of pending studies: Urine culture Medical Emergencies . Who to Call and When: Medical Emergencies: If at any time you feel your situation is an emergency, please call 911 immediately. . Non-Emergent Contact Non-Emergency issues call your: Primary Care Provider . . "Provider Documentation" section prepared by Nubia Leigh. . VTE Core Measure Inpt VTE Proph given/why not?: Unfractionated heparin SQ, KOFFI's Resident Tracking Resident Involvement: Resident Care Provided Care Provided: Adult Hospital Medicine
[2017-04-16 16:56] VITALS: BP 155/65; PULSE 72; TEMP 36.6; O2SAT 93
--- NOTE | 2017-04-16 17:40 | ECHOCARDIOGRAM REPORT ---
*NOTICE TO RECEIVING DEMOCRAT AGENCY This information is strictly Confidential and protected under [place] law. [place] law prohibits you from making any further disclosure of this information unless further disclosure is expressly permitted by the written consent of the person to whom it pertains or is authorized by law. A general authorization for the release of medical or other information is not sufficient for this purpose. Hospital accepts no responsibility if the information is made available to any other person, INCLUDING THE PATIENT. Interpretation Summary * Name: ANTONI HOLDEN Study Date: 04/16/2017 08:58 AM BP: 144/75 mmHg * Patient Location: [facility]\S\N276\S\2 HR: 70 * : 1930 (M/d/yyyy) Gender: Female Height: 62 in * Age: 87 yrs Ethnicity: [place] Weight: 140 lb * Ordering Physician: Christa Blanco * Referring Physician: Self, Referred * Performed By: Ophelia Dooley RCS * * Reason For Study: Syncope * BSA: 1.6 m2 * -- Conclusions -- * 1. Normal left ventricular size with hyperdynamic systolic function. EF > 70%. No regional wall motion abnormalities. Mild concentric left ventricular hypertrophy. Type 1 diastolic dysfunction. * 2. The left atrium is mildly dilated. * 3. Mild to moderate aortic stenosis. * 4. There is mild mitral regurgitation. There is moderate mitral annular calcification. * 5. Top-normal right ventricular systolic pressure; 38mmHg. * 6. Compared to prior study on 07/01/2014, aortic stenosis is now [id number]. Procedure Details * A complete two-dimensional transthoracic echocardiogram was performed (2D, M-mode, Doppler and color flow Doppler). Left Ventricle * Normal left ventricular size with hyperdynamic systolic function. EF > 70%. No regional wall motion abnormalities. Mild concentric left ventricular hypertrophy. Type 1 diastolic dysfunction. Right Ventricle * The right ventricle is normal in size and function. * The right ventricular systolic function is normal as assessed by tricuspid annular plane systolic excursion (TAPSE) (normal >1.5 cm). Atria * The left atrium is mildly dilated. * Right atrial size is normal. * No ASD. No definite PFO. Mitral Valve * There is moderate mitral annular calcification. * There is no mitral valve stenosis. * There is mild mitral regurgitation. Tricuspid Valve * The tricuspid valve is not well visualized, but is grossly normal. * There is no tricuspid stenosis. * There is trace tricuspid regurgitation. Aortic Valve * The aortic valve is trileaflet. * Mild to moderate aortic stenosis. * There is no significant aortic regurgitation. Pulmonic Valve * The pulmonary valve is inadequately visualized, but the Doppler data is adequate for interpretation. * There is no pulmonic valvular stenosis. * Mild pulmonic valvular regurgitation. Great Vessels * The aortic root is normal size. * Ascending aorta of normal dimension Pericardium/Pleural * There is no pericardial effusion. Great Vessels * Normal inferior vena cava size and collapsability with sniff indicates a normal right atrial pressure of 3 mmHg MMode 2D Measurements and Calculations IVSd 1.3 cm IVSs 1.4 cm LVIDd 4.3 cm LVIDs 2.9 cm LVPWd 1.2 cm LVPWs 1.4 cm IVS/LVPW 1.1 FS 32.6 % EDV(Teich) 83.6 ml ESV(Teich) 32.4 ml EF(Teich) 61.2 % EDV(cubed) 80.2 ml ESV(cubed) 24.6 ml EF(cubed) 69.3 % % IVS thick 9.4 % % LVPW thick 20.0 % LV mass(C)d 192.2 grams LV mass(C)dI 117.0 grams/m\S\2 LV mass(C)s 136.0 grams LV mass(C)sI 82.8 grams/m\S\2 SV(Teich) 51.2 ml SI(Teich) 31.2 ml/m\S\2 SV(cubed) 55.6 ml SI(cubed) 33.8 ml/m\S\2 Ao root diam 2.8 cm Ao root area 6.0 cm\S\2 LA dimension 4.6 cm asc Aorta Diam 2.8 cm LA/Ao 1.7 LVOT diam 2.0 cm LVOT area 3.2 cm\S\2 LVAd ap4 21.0 cm\S\2 LVLd ap4 7.4 cm EDV(MOD-sp4) 49.3 ml EDV(sp4-el) 50.6 ml LVAs ap4 7.8 cm\S\2 LVLs ap4 6.4 cm ESV(MOD-sp4) 8.8 ml ESV(sp4-el) 8.0 ml EF(MOD-sp4) 82.2 % EF(sp4-el) 84.1 % SV(MOD-sp4) 40.5 ml SI(MOD-sp4) 24.6 ml/m\S\2 SV(sp4-el) 42.5 ml SI(sp4-el) 25.9 ml/m\S\2 Doppler Measurements and Calculations MV E max juan 123.1 cm/sec MV A max juan 146.8 cm/sec MV E/A 0.84 MV V2 max 149.3 cm/sec MV max PG 8.9 mmHg MV V2 mean 75.0 cm/sec MV mean PG 2.7 mmHg MV V2 VTI 42.7 cm MVA(VTI) 2.3 cm\S\2 MV P1/2t max juan 127.7 cm/sec MV P1/2t 94.1 msec MVA(P1/2t) 2.3 cm\S\2 MV dec slope 397.4 cm/sec\S\2 MV dec time 0.29 sec Ao V2 max 291.2 cm/sec Ao max PG 33.9 mmHg Ao max PG (full) 27.2 mmHg Ao V2 mean 210.0 cm/sec Ao mean PG 19.6 mmHg Ao mean PG (full) 16.2 mmHg Ao V2 VTI 70.0 cm WOODY(I,A) 1.4 cm\S\2 WOODY(I,D) 1.4 cm\S\2 WOODY(V,A) 1.4 cm\S\2 WOODY(V,D) 1.4 cm\S\2 LV V1 max PG 6.8 mmHg LV V1 mean PG 3.4 mmHg LV V1 max 130.0 cm/sec LV V1 mean 85.1 cm/sec LV V1 VTI 31.1 cm SV(Ao) 421.5 ml SI(Ao) 256.6 ml/m\S\2 SV(LVOT) 98.7 ml SI(LVOT) 60.1 ml/m\S\2 PA V2 max 139.9 cm/sec PA max PG 7.8 mmHg PI max juan 187.2 cm/sec PI max PG 14.0 mmHg PI dec slope 238.3 cm/sec\S\2 PI P1/2t 230.1 msec TR max juan 294.0 cm/sec RVSP(TR) 37.6 mmHg RAP systole 3.0 mmHg
--- NOTE | 2017-04-16 18:42 | Discharge Summary ---
Discharge Summary Date of Service Apr 16, 2017. Discharge Summary Admission Date: Apr 15, 2017 at 22:40 Discharge Date: Apr 16, 2017 Discharge Disposition: Home Principal Diagnosis: syncope in the setting of viral gastroenteritis Problems/Secondary Diagnoses: (1) Chronic Kidney Disease, Unspecified Status: Chronic (2) Depressive Disorder Nec Status: Chronic (3) Diab Angella Wo Compl, Type Ii Or Unspec Type, Not Uncntrld Status: Chronic (4) Generalized Anxiety Dis Status: Chronic (5) Hyperlipidemia Nec/Nos Status: Chronic (6) Hypertension Nos Status: Chronic (7) Osteoarthros Nos-Unspec Status: Chronic Immunizations: Have You Had Influenza Vaccine: Yes Influenza Vaccine Date: Dec 18, 2008 History of Tetanus Vaccine?: No History of Pneumococcal: No Pneumococcal Date: Feb 25, 2005 History of Hepatitis B Vaccine: No Procedures: ECHO Interpretation Summary * Name: ANTONI HOLDEN Study Date: 04/16/2017 08:58 AM BP: 144/75 mmHg * Patient Location: [facility]\S\[facility]\S\2 HR: 70 * : 1930 (M/d/yyyy) Gender: Female Height: 62 in * Age: 87 yrs Ethnicity: [place] Weight: 140 lb * Ordering Physician: Christa Blanco * Referring Physician: Self, Referred * Performed By: Ophelia Dooley RCS * * Reason For Study: Syncope * BSA: 1.6 m2 * -- Conclusions -- * 1. Normal left ventricular size with hyperdynamic systolic function. EF > 70%. No regional wall motion abnormalities. Mild concentric left ventricular hypertrophy. Type 1 diastolic dysfunction. * 2. The left atrium is mildly dilated. * 3. Mild to moderate aortic stenosis. * 4. There is mild mitral regurgitation. There is moderate mitral annular calcification. * 5. Top-normal right ventricular systolic pressure; 38mmHg. * 6. Compared to prior study on 07/01/2014, aortic stenosis is now mild-to- moderate. Procedure Details * A complete two-dimensional transthoracic echocardiogram was performed (2D, M-mode, Doppler and color flow Doppler). Left Ventricle * Normal left ventricular size with hyperdynamic systolic function. EF > 70% . No regional wall motion abnormalities. Mild concentric left ventricular hypertrophy. Type 1 diastolic dysfunction. Right Ventricle * The right ventricle is normal in size and function. * The right ventricular systolic function is normal as assessed by tricuspid annular plane systolic excursion (TAPSE) (normal >1.5 cm). Atria * The left atrium is mildly dilated. * Right atrial size is normal. * No ASD. No definite PFO. Mitral Valve * There is moderate mitral annular calcification. * There is no mitral valve stenosis. * There is mild mitral regurgitation. Tricuspid Valve * The tricuspid valve is not well visualized, but is grossly normal. * There is no tricuspid stenosis. * There is trace tricuspid regurgitation. Aortic Valve * The aortic valve is trileaflet. * Mild to moderate aortic stenosis. * There is no significant aortic regurgitation. Pulmonic Valve * The pulmonary valve is inadequately visualized, but the Doppler data is adequate for interpretation. * There is no pulmonic valvular stenosis. * Mild pulmonic valvular regurgitation. Great Vessels * The aortic root is normal size. * Ascending aorta of normal dimension Pericardium/Pleural * There is no pericardial effusion. Great Vessels * Normal inferior vena cava size and collapsability with sniff indicates a normal right atrial pressure of 3 mmHg MMode 2D Measurements and Calculations IVSd 1.3 cm IVSs 1.4 cm LVIDd 4.3 cm LVIDs 2.9 cm LVPWd 1.2 cm LVPWs 1.4 cm IVS/LVPW 1.1 FS 32.6 % EDV(Teich) 83.6 ml ESV(Teich) 32.4 ml EF(Teich) 61.2 % EDV(cubed) 80.2 ml ESV(cubed) 24.6 ml EF(cubed) 69.3 % % IVS thick 9.4 % % LVPW thick 20.0 % LV mass(C)d 192.2 grams LV mass(C)dI 117.0 grams/m\S\2 LV mass(C)s 136.0 grams LV mass(C)sI 82.8 grams/m\S\2 SV(Teich) 51.2 ml SI(Teich) 31.2 ml/m\S\2 SV(cubed) 55.6 ml SI(cubed) 33.8 ml/m\S\2 Ao root diam 2.8 cm Ao root area 6.0 cm\S\2 LA dimension 4.6 cm asc Aorta Diam 2.8 cm LA/Ao 1.7 LVOT diam 2.0 cm LVOT area 3.2 cm\S\2 LVAd ap4 21.0 cm\S\2 LVLd ap4 7.4 cm EDV(MOD-sp4) 49.3 ml EDV(sp4-el) 50.6 ml LVAs ap4 7.8 cm\S\2 LVLs ap4 6.4 cm ESV(MOD-sp4) 8.8 ml ESV(sp4-el) 8.0 ml EF(MOD-sp4) 82.2 % EF(sp4-el) 84.1 % SV(MOD-sp4) 40.5 ml SI(MOD-sp4) 24.6 ml/m\S\2 SV(sp4-el) 42.5 ml SI(sp4-el) 25.9 ml/m\S\2 Doppler Measurements and Calculations MV E max juan 123.1 cm/sec MV A max juan 146.8 cm/sec MV E/A 0.84 MV V2 max 149.3 cm/sec MV max PG 8.9 mmHg MV V2 mean 75.0 cm/sec MV mean PG 2.7 mmHg MV V2 VTI 42.7 cm MVA(VTI) 2.3 cm\S\2 MV P1/2t max juan 127.7 cm/sec MV P1/2t 94.1 msec MVA(P1/2t) 2.3 cm\S\2 MV dec slope 397.4 cm/sec\S\2 MV dec time 0.29 sec Ao V2 max 291.2 cm/sec Ao max PG 33.9 mmHg Ao max PG (full) 27.2 mmHg Ao V2 mean 210.0 cm/sec Ao mean PG 19.6 mmHg Ao mean PG (full) 16.2 mmHg Ao V2 VTI 70.0 cm WOODY(I,A) 1.4 cm\S\2 WOODY(I,D) 1.4 cm\S\2 WOODY(V,A) 1.4 cm\S\2 WOODY(V,D) 1.4 cm\S\2 LV V1 max PG 6.8 mmHg LV V1 mean PG 3.4 mmHg LV V1 max 130.0 cm/sec LV V1 mean 85.1 cm/sec LV V1 VTI 31.1 cm SV(Ao) 421.5 ml SI(Ao) 256.6 ml/m\S\2 SV(LVOT) 98.7 ml SI(LVOT) 60.1 ml/m\S\2 PA V2 max 139.9 cm/sec PA max PG 7.8 mmHg PI max juan 187.2 cm/sec PI max PG 14.0 mmHg PI dec slope 238.3 cm/sec\S\2 PI P1/2t 230.1 msec TR max juan 294.0 cm/sec RVSP(TR) 37.6 mmHg RAP systole 3.0 mmHg CHEST ONE VIEW PORTABLE CLINICAL HISTORY: vomiting, syncope, assess for aspiration. COMPARISON STUDY: Chest radiograph October 08, [address] March 07, 2017. FINDINGS: Lung volumes are normal. No pneumothorax or pleural effusion is noted. There is no consolidation. Pulmonary vascularity is normal. Cardiomediastinal silhouette is unremarkable. Mild upper mediastinal widening is unchanged and due to a thyroid goiter as shown on prior chest CT. IMPRESSION: No acute cardiopulmonary findings. CT OF THE ABDOMEN AND PELVIS WITHOUT CONTRAST CLINICAL HISTORY: n/v/d, trauma COMPARISON STUDY: CT of the abdomen and pelvis November 12, 2016. TECHNIQUE: Axial images of the abdomen and pelvis were obtained without IV contrast. Images were reviewed in the axial, sagittal, and coronal planes. A dose lowering technique was utilized adhering to the principles of ALARA. FINDINGS: Lung bases are clear. A small hiatal hernia is noted. Evaluation of the abdomen and pelvis is suboptimal on this unenhanced exam. There is no evidence for traumatic injury to the liver, spleen, adrenal glands, kidneys or pancreas on this unenhanced exam. 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 No hemoperitoneum or pneumoperitoneum is present. Caliber of small and large bowel are normal. No acute lumbar spine or pelvic fractures are identified. There is increased density within the anterior epidural space at the lower lumbar and upper sacral levels. This may be artifactual. IMPRESSION: 1. No acute traumatic findings within the abdomen or pelvis on unenhanced exam. No bowel obstruction. 2. Apparent increased attenuation of the anterior epidural space within the lower lumbar canal and upper sacral canal. This is probably artifactual or related to degenerative disc disease however an epidural hematoma cannot be completely excluded. This could be correlated with\lower extremity pain. An MRI of the lumbar spine could be obtained for further evaluation. CT OF THE CERVICAL SPINE WITHOUT CONTRAST CLINICAL HISTORY: trauma COMPARISON STUDY: No previous studies for comparison. TECHNIQUE: Helical axial images of the cervical spine were obtained without IV contrast. Sagittal and coronal reconstructions were viewed. A dose lowering technique was utilized adhering to the principles of ALARA. FINDINGS: No acute cervical spine fracture is present. Craniocervical junction is intact. There is slight anterolisthesis of C2 on C3, C3 on C4 and C4 on C5. There is marked disc space narrowing and osteophytosis at C5-C6. There is no prevertebral edema. Several thyroid nodules are present within the right thyroid lobe which is asymmetrically enlarged. IMPRESSION: No acute cervical spine fracture or subluxation. CT OF THE HEAD WITHOUT CONTRAST CLINICAL HISTORY: trauma, LOC COMPARISON STUDY: Head CT April 10, 2016. CT DOSE: 638.56 mGycm TECHNIQUE: Helical axial images of the head were obtained without IV contrast. Automated exposure control was utilized for the study. A dose lowering technique was utilized adhering to the principles of ALARA. FINDINGS: No acute intracranial hemorrhage, midline shift or mass effect is present. Ventricular system is stable. Basilar cisterns are patent. There are no extra-axial collections. White matter hypodensities are unchanged and suggest small vessel disease. There are no findings to suggest acute dural sinus thrombosis or acute territorial infarct. No calvarial fracture is identified. There are multiple locules of gas within the posterior scalp. This suggests a laceration. IMPRESSION: 1. No acute intracranial findings. 2. Locules of gas within the posterior scalp which suggests a laceration. No calvarial fracture. Consultations: none Medication Reconciliation New Medications: Sulfa/Trimethoprim (Bactrim Ds 800MG/160MG) Tab 1 TAB PO BID for 3 Days, #6 TAB Continued Medications: Atorvastatin (Lipitor) 40 Mg Tab 40 MG PO HS, TAB Cholecalciferol (Vitamin D3) 1,000 Unit Tab 1000 UNITS PO DAILY Cranberry (Vaccinium Macrocarp (Cranberry Extract) 250 Mg Tab 250 MG PO DAILY Melatonin (Kp Melatonin) 3 Mg Tab 3 MG PO HS Mirabegron (Myrbetriq Er) 50 Mg Tab 50 MG PO DAILY, TAB Ranitidine (Zantac) 150 Mg Tab 150 MG PO Q12 Sertraline HCl (Sertraline HCl) 100 Mg Tab 150 MG PO QAM Temazepam (Restoril) 15 Mg Cap 7.5 MG PO HS Discharge Exam Review of Systems: Constitutional: No fever, No chills Respiratory: No cough, No shortness of breath Cardiovascular: No chest pain Abdomen: + diarrhea, No nausea, No vomiting Genitourinary - Female: No dysuria Physical Exam: General Appearance: no apparent distress Eyes: normal inspection, sclerae normal Respiratory/Chest: lungs clear, normal breath sounds Cardiovascular: regular rate, rhythm, no murmur Abdomen / GI: normal bowel sounds, non tender, soft Extremities: no calf tenderness, no pedal edema Neurologic/Psychiatric: alert, oriented x 3 Skin: warm/dry, + pertinent finding (6 nikia on occipital scalp lac - not actively bleeding) Hospital Course This is an 87 yo f suffering from syncope most likely secondary to dehydration from acute onset viral gastroenteritis reflected with positive orthostatics and an elevated BUN however with the patient's history of mild on an echo from 2014 concerning that this contributed to the syncope Syncope secondary to dehydration vs cardiac nature - Remained NSR - NSS 2 L received in ED - NSS with 20 Meq of KCL @ 100cc/h - ECHO completed - Normal LV size with hyperdynamic SF. EF > 70%. No regional wall motion abnormalities. Mild concentric LV hypertrophy. Type 1 diastolic dysfunction. Left atrium is mildly dilated. Mild to moderate aortic stenosis. Mild mitral regurgitation. Moderate mitral annular calcification. Top-normal right ventricular systolic pressure; 38mmHg. Compared to prior study on 07/01/2014, aortic stenosis is now [id number]. - stool cultures prelim neg - Ucx - gram neg bacilli - troponin neg x 2 - advised to stay hydrated and drink lots of fluids - Follow up echo results with PCP in the next 3-4 days - Advised if having intractable nausea/vomiting with decreased oral intake to visit ER or PCP Urinary tract infection: - Prescribed Bactrim DS 800-160 mg twice daily for 3 days HLD - Atorvastatin 40 mg daily Overactive Bladder - Myrbetriq 50 mg held GERD/ H/o GI bleed - Zantac 150 mg Depression - Sertraline 150 mg daily - Restoril 7.5 mg HS DVT prophylaxis SCD and heparin Full code Total Time Spent: Less than 30 minutes This includes examination of the patient, discharge planning, medication reconciliation, and communication with other providers. Discharge Instructions Please refer to the electronic Patient Visit Report (Discharge Instructions) for additional information. Additional Copies To Brant Oscar M.D.
[2017-04-16] MEDS ORDERED: NON-FORMULARY MEDICATION (Melatonin (Kp Melatonin) 3 MG) PO SCH (21:00)
[2017-04-16] MEDS ORDERED: ATORVASTATIN 20 MG TAB PO SCH (21:00)
[2017-04-16] MEDS ORDERED: TEMAZEPAM 15 MG CAP PO SCH (21:00)
== END 2017-04-16 17:51 | disposition home or self-care (01) ==
LOC: EDBD 18:18 → C.EDC 18:18 → C.MED 22:40 → ENRESERV 23:16
PROVIDERS: ADMIT Hospitalist; ATTEND Family Medicine
DX: R55 Syncope and collapse (principal); A08.4 Viral intestinal infection, unspecified; N39.0 Urinary tract infection, site not specified; S01.01XA Laceration without foreign body of scalp, initial encounter; S09.90XA Unspecified injury of head, initial encounter; W18.09XA Striking against other object with subsequent fall, initial encounter; R19.7 Diarrhea, unspecified; R11.10 Vomiting, unspecified; N32.81 Overactive bladder; E86.0 Dehydration; N18.9 Chronic kidney disease, unspecified; I12.9 Hypertensive chronic kidney disease with stage 1 through stage 4 chronic kidney disease, or unspecified chronic kidney disease; F32.9 Major depressive disorder, single episode, unspecified; E11.9 Type 2 diabetes mellitus without complications; F41.1 Generalized anxiety disorder; E78.00 Pure hypercholesterolemia, unspecified; E78.5 Hyperlipidemia, unspecified; M19.90 Unspecified osteoarthritis, unspecified site; Z79.899 Other long term (current) drug therapy

== ENCOUNTER → 2017-05-20 | Outpatient (CLI) | payer BC ==
[~2017-05-20] MED LIST changes: -ASCO100061 PO; +ATOR-24 PO; -CIPR-255 PO; +CRAN250T PO; +MIRA1TAB3 PO; -ONDA4TAB46 PO; +RANI150T85 PO; -SIMV20TA2 PO; -ZNTT/150 PO
--- NOTE | 2017-05-20 11:41 | DIAGNOSTIC IMAGING REPORT ---
EXAMINATION: RENAL ULTRASOUND CLINICAL HISTORY: R31.0 Gross [id number] COMPARISON STUDY: CT scan dated 04/15/2017 FINDINGS: The right kidney measures 11 cm. The left kidney measures 9.6 cm. There is no evidence of hydronephrosis. There is a tiny echogenic focus within the left kidney likely representing a calculus. There is a 2.7 cm polypoid bladder mass. Urological consultation is recommended in follow-up. IMPRESSION : 2.7 cm echogenic polypoid bladder mass. Cystoscopic correlation should be considered. Electronically signed by: Merritt Manley M.D. 05/20/2017 11:40 AM Dictated Date/Time: 05/20/2017 11:37 AM
== END | disposition home or self-care (01) ==
LOC: C.ULTR 11:04
PROVIDERS: ATTEND Urology
DX: N32.89 Other specified disorders of bladder (principal); R31.0 Gross hematuria; R30.0 Dysuria

== ENCOUNTER 2017-05-28 15:11 | Emergency (ER) | payer BC ==
[~2017-05-28] VITALS: Ht 157.5 cm; Wt 65.3 kg
[2017-05-28 15:19] VITALS: TEMP 36.6; Ht 157.5 cm; Wt 65.3 kg
[2017-05-28 16:22] LABS: BASO % 0.4 %; BASO ABS # 0.02 K/uL (0-0.2); EOS % 2.1 %; EOS ABS # 0.12 K/uL (0-0.5); HEMATOCRIT 36.9 % (37-47); HEMOGLOBIN 12.7 g/dL (12.0-16.0); LYMPH % 29.3 %; LYMPH ABS # 1.64 K/uL (1.2-3.4); MEAN CELL VOLUME 93.2 fL (80-100); MEAN CORPUSCULAR HEMOGLOBIN 32.1 pg (25-34); MEAN CORPUSCULAR HGB CONC 34.4 g/dl (32-36); MEAN PLATELET VOLUME 9.7 fL (7.4-10.4); MONO % 10.6 %; MONO ABS # 0.59 K/uL (0.11-0.59); NEUT % 57.6 %; NEUT ABS # 3.22 K/uL (1.4-6.5); PLATELET COUNT 176 K/uL (130-400); RED CELL DISTRIBUTION WIDTH CV 12.5 % (11.5-14.5); RED CELL DISTRIBUTION WIDTH SD 42.6 fL (36.4-46.3); WHITE BLOOD COUNT 5.59 K/uL (4.8-10.8)
--- NOTE | 2017-05-28 16:34 | EMERGENCY ROOM VISIT NOTE ---
ED Visit Note First contact with patient: 15:23 Resident Physician Supervision Note: I was present with Dr. Ambrosio during the history and exam. I discussed the case with the resident and agree with the findings and plan as documented in the note. Documented By: Manny Escamilla
[2017-05-28 16:39] LABS: ALBUMIN 3.6 gm/dl (3.4-5.0); ALT/SGPT 26 U/L (12-78); AST/SGOT 22 U/L (15-37); BLOOD UREA NITROGEN 18 mg/dl (7-18); CALCIUM 9.4 mg/dl (8.5-10.1); CARBON DIOXIDE 27 mmol/L (21-32); CREATININE 0.93 mg/dl (0.60-1.20); GLUCOSE 98 mg/dl (70-99); LIPASE 1349 U/L (73-393); POTASSIUM 3.8 mmol/L (3.5-5.1); SODIUM 138 mmol/L (136-145)
[2017-05-28 16:44] LABS: ALKALINE PHOSPHATASE 66 U/L (45-117); TOTAL PROTEIN 7.9 gm/dl (6.4-8.2)
[2017-05-28] MEDS ORDERED: SODIUM CHLORIDE 0.9% 1000ML 1,000 ML IV SCH (17:15)
--- NOTE | 2017-05-28 17:34 | DIAGNOSTIC IMAGING REPORT ---
ABDOMEN COMPLETE (US) CLINICAL HISTORY: 87 years-old Female presenting with ruq pain, right flank pain. TECHNIQUE: Real-time grayscale and limited color Doppler ultrasound imaging of the abdomen was performed. COMPARISON: CT from 04/15/2017. FINDINGS: Pancreas: Visualized portions of the pancreatic head and body normal. Liver: Normal echogenicity and echotexture. The liver measures 12.2 cm in maximal sagittal dimension. No sonographic evidence of hepatic mass. Main portal vein patent with normal directional flow. Biliary: No intrahepatic biliary ductal dilatation. Common bile duct measures up to 3 mm in diameter. Gallbladder: No evidence of gallstones, gallbladder wall thickening, gallbladder distention, or pericholecystic fluid or inflammatory change. Spleen: Normal in echogenicity and size, measuring 8.8 cm in length. Kidneys: Normal in size and echogenicity. Right kidney measures 9.8 cm, and left kidney measures 9.7 cm. No hydronephrosis. Vasculature: Atherosclerosis of the normal caliber abdominal aorta. IVC patent. Ascites: None. Bladder: Bilateral ureteral jets noted. Polypoid masslike thickening in the bladder measuring 2.5 x 2.4 x 2.2 cm. IMPRESSION: 1. Findings suspicious for a polypoid bladder luminal mass. Urologic consultation recommended. 2. No cholelithiasis or biliary ductal dilatation. Electronically signed by: Vineet Bonilla M.D. 05/28/2017 5:33 PM Dictated Date/Time: 05/28/2017 5:29 PM
--- NOTE | 2017-05-28 17:39 | EMERGENCY ROOM VISIT NOTE ---
History First contact with patient: 15:23 Chief Complaint: ABDOMINAL PAIN Stated Complaint: PAIN IN SIDE GROIN Nursing Triage Summary: Pt reports right sided abd pain and right flank pain for "several months." Nausea. Constipation. Last normal BM was a "number of days ago." Pt states, "I have bladder problems." No known hx of kidney stones. History of Present Illness The patient is a 87 year old female who presents to the Emergency Room with complaints of right side flank pain for several months. The pain waxes and wanes and she does have the pain most days of the week. She has been evaluated for this in the past and there have been no significant findings except for a bladder mass that is currently being evaluated for by Urology. She denies any urinary symptoms or h/o of kidney stones. Pain is about 8/10 at its worst, doesn 't radiate anywhere. Currently she does not have any pain. She has been tolerating PO intake. denies fevers, chills, nausea, vomiting Denies gross hematuria Her last bm was a few days ago Denies chest pain, palpitations Denies melena, hematochezia Denies shortness of breath, wheezing Review of Systems See above for pertinent positives & negatives. A total of 10 systems reviewed and were otherwise negative. Past Medical/Surgical History Medical Problems: (1) Chr Peptic Ulcer W Hem (2) Chronic Kidney Disease, Unspecified (3) Depressive Disorder Nec (4) Diab Angella Wo Compl, Type Ii Or Unspec Type, Not Uncntrld (5) Generalized Anxiety Dis (6) Hypercholesteremia (7) Hyperlipidemia Nec/Nos (8) Hypertension Nos (9) Low back pain (10) Osteoarthros Nos-Unspec (11) SEIZURE (12) UTI (urinary tract infection) Surgical Problems: (1) S/P hysterectomy Family History Cancer Diabetes mellitus Gallbladder disease Heart disease Hypertension Seizures Social History Smoking Status: Never Smoker Alcohol Use: none Drug Use: none Marital Status: single Housing Status: lives alone Occupation Status: retired Current/Historical Medications Scheduled Atorvastatin (Lipitor), 40 MG PO HS Cholecalciferol (Vitamin D3), 1,000 UNITS PO DAILY Cranberry (Vaccinium Macrocarp (Cranberry Extract), 250 MG PO DAILY Melatonin (Kp Melatonin), 3 MG PO HS Mirabegron (Myrbetriq Er), 50 MG PO DAILY Ranitidine (Zantac), 150 MG PO Q12 Sertraline HCl (Sertraline HCl), 150 MG PO QAM Temazepam (Restoril), 7.5 MG PO HS Physical Exam Vital Signs Date Time Temp Pulse Resp B/P (MAP) Pulse Ox O2 Delivery O2 Flow Rate FiO2 05/28/17 18:50 64 16 129/75 94 Room Air 05/28/17 16:56 65 16 134/70 94 Room Air 05/28/17 15:19 36.6 69 18 173/87 96 Room Air Physical Exam GENERAL: Patient is awake alert in no acute distress EYES: The conjunctivae are clear. The pupils are round and reactive. EARS, NOSE, MOUTH AND THROAT: Mucous membranes are moist tongue is midline NECK: The neck is nontender and supple. RESPIRATORY: Normal respiratory effort, no wheezing rhonchi or rales CARDIOVASCULAR: Regular rate and rhythm, no murmurs, normal s1s2 GASTROINTESTINAL: The abdomen is soft. Bowel sounds are present in all quadrants. Abdomen is mildly tender in the RUQ region. PELVIS: The Pelvis is stable. No tenderness to palpation is noted. BACK: right cva tenderness MUSCULOSKELETAL/EXTREMITIES: moves all extremities SKIN: There is no obvious evidence of any rash. NEUROLOGIC: Patient is awake alert and oriented x3 Medical Decision & Procedures Laboratory Results 05/28/17 16:10 Red Blood Count 3.96, Mean Corpuscular Volume 93.2, Mean Corpuscular Hemoglobin 32.1, Mean Corpuscular Hemoglobin Concent 34.4, Mean Platelet Volume 9.7, Neutrophils (%) (Auto) 57.6, Lymphocytes (%) (Auto) 29.3, Monocytes (%) (Auto) 10.6, Eosinophils (%) (Auto) 2.1, Basophils (%) (Auto) 0.4, Neutrophils # (Auto ) 3.22, Lymphocytes # (Auto) 1.64, Monocytes # (Auto) 0.59, Eosinophils # (Auto ) 0.12, Basophils # (Auto) 0.02 05/28/17 16:10 Test 05/28/17 16:10 05/28/17 16:40 White Blood Count 5.59 K/uL (4.8-10.8) Red Blood Count 3.96 M/uL (4.2-5.4) Hemoglobin 12.7 g/dL (12.0-16.0) Hematocrit 36.9 % (37-47) Mean Corpuscular Volume 93.2 fL (80-100) Mean Corpuscular Hemoglobin 32.1 pg (25-34) Mean Corpuscular Hemoglobin Concent 34.4 g/dl (32-36) Platelet Count 176 K/uL (130-400) Mean Platelet Volume 9.7 fL (7.4-10.4) Neutrophils (%) (Auto) 57.6 % Lymphocytes (%) (Auto) 29.3 % Monocytes (%) (Auto) 10.6 % Eosinophils (%) (Auto) 2.1 % Basophils (%) (Auto) 0.4 % Neutrophils # (Auto) 3.22 K/uL (1.4-6.5) Lymphocytes # (Auto) 1.64 K/uL (1.2-3.4) Monocytes # (Auto) 0.59 K/uL (0.11-0.59) Eosinophils # (Auto) 0.12 K/uL (0-0.5) Basophils # (Auto) 0.02 K/uL (0-0.2) RDW Standard Deviation 42.6 fL (36.4-46.3) RDW Coefficient of Variation 12.5 % (11.5-14.5) Immature Granulocyte % (Auto) 0.0 % Immature Granulocyte # (Auto) 0.00 K/uL (0.00-0.02) Anion Gap 5.0 mmol/L (3-11) Est Creatinine Clear Calc Drug Dose 37.8 ml/min Estimated GFR () 64.0 Estimated GFR (Non- 55.3 BUN/Creatinine Ratio 19.7 (10-20) Calcium Level 9.4 mg/dl (8.5-10.1) Total Bilirubin 0.7 mg/dl (0.2-1) Aspartate Amino Transf (AST/SGOT) 22 U/L (15-37) Alanine Aminotransferase (ALT/SGPT) 26 U/L (12-78) Alkaline Phosphatase 66 U/L (45-117) Troponin I < 0.015 ng/ml (0-0.045) Total Protein 7.9 gm/dl (6.4-8.2) Albumin 3.6 gm/dl (3.4-5.0) Globulin 4.3 gm/dl (2.5-4.0) Albumin/Globulin Ratio 0.8 (0.9-2) Lipase 1349 U/L (73-393) Urine Color YELLOW Urine Appearance CLEAR (CLEAR) Urine pH 6.0 (4.5-7.5) Urine Specific [place] 1.005 (1.000-1.030) Urine Protein NEG (NEG) Urine Glucose (UA) NEG (NEG) Urine Ketones NEG (NEG) Urine Occult Blood NEG (NEG) Urine Nitrite NEG (NEG) Urine Bilirubin NEG (NEG) Urine Urobilinogen NEG (NEG) Urine Leukocyte Esterase NEG (NEG) Urine WBC (Auto) 1-5 /hpf (0-5) Urine RBC (Auto) 0-4 /hpf (0-4) Urine Hyaline Casts (Auto) 0 /lpf (0-5) Urine Epithelial Cells (Auto) 0-5 /lpf (0-5) Urine Bacteria (Auto) NEG (NEG) Medications Administered Medications (Trade) Dose Ordered Sig/Shanice Route Start Time Stop Time Status Last Admin Dose Admin Sodium Chloride 1,000 ml @ 80 mls/hr [id number] IV 05/28/17 17:15 05/28/17 22:30 DC 05/28/17 17:45 80 MLS/HR Medical Decision This is an 87 y/o F who presents with right flank pain x several months. DDx: UTI, Pyelonephritis, Kidney stone, constipation, PUD, Gastritis, Pancreatitis etc. The patient's CBC was normal, without any evidence of leucocytosis or anemia. CMP was normal except for elevated Lipase at 1300. Urinalysis was normal. Abdominal CT was largely unremarkable for acute pathologies. The bladder mass is visualized again. There is mild to moderate constipation. Ultrasound also shows this bladder mass. Looking back at her records, she did have pancreatitis several years ago. She is currently not complaining of any epigastric or umbilical pain. She is tolerating PO intake. There is no Nausea/ vomiting. We discussed the option of admission vs. going home. The patient preferred to go home. She will drink lots of fluids and follow up with her PCP for a repeat Lipase in 48 hrs. Her right flank pain could be from the bladder mass vs. constipation. Etiology is unclear, however, she was recommended to follow up with her urologist as scheduled for cystoscopy. She was advised to come back to the ER for worsening pain, nausea, vomiting etc. Patient and son in agreement with the plan. All questions were answered. Blood Pressure Screening Patient's blood pressure: Normal blood pressure Impression Primary Impression: Right flank pain Additional Impression: Elevated lipase Departure Information Dispostion Home / Self-Care Condition FAIR Referrals Brant Oscar M.D. (PCP) Patient Instructions [facility] Problem Qualifiers
--- NOTE | 2017-05-28 18:07 | DIAGNOSTIC IMAGING REPORT ---
CT SCAN OF THE ABDOMEN AND PELVIS WITHOUT IV CONTRAST CLINICAL HISTORY: Right upper quadrant abdominal pain. Elevated lipase. COMPARISON STUDY: Abdominal CT dated 04/15/2017. Abdominal ultrasound dated 05/28/2017. TECHNIQUE: CT scan of the abdomen and pelvis is performed from the lung bases to the proximal femora. Images are reviewed in the axial, sagittal, and coronal planes. IV contrast was not administered for this examination as per the referring clinician. Note that the examination was performed in suboptimal fashion without oral and IV contrast. A dose lowering technique was utilized adhering to the principles of ALARA. CT DOSE: 320.72 mGy.cm FINDINGS: Lung bases: The heart is normal in size and without pericardial effusion. The mitral annulus and coronary arteries are densely calcified. The lung bases are clear. Liver: The unenhanced liver is normal in size, contour, and attenuation. There is no intrahepatic biliary ductal dilatation. Gallbladder: Unremarkable. Spleen: Normal in size and attenuation. Pancreas: The unenhanced pancreas is moderately atrophic and grossly unremarkable. No peripancreatic fluid or stranding is identified. There is no evidence of ductal dilatation. No peripancreatic fluid collection is identified. Adrenal glands: Unremarkable. Kidneys: The unenhanced kidneys demonstrate cortical atrophy and are without hydronephrosis. A 3 mm calcification is noted in the interpolar left kidney on image #125. There is no evidence of contour deforming renal mass lesion. Abdominal vasculature: The abdominal aorta is normal in course and caliber noting advanced atherosclerotic calcification. Bowel: There is mild sigmoid diverticulosis without CT evidence of acute diverticulitis. Mild to moderate colonic fecal retention is observed. No bowel obstruction is seen. The appendix is well-visualized and normal. Peritoneum: There is no intraperitoneal free air or abdominal ascites. Lymphadenopathy: None. Pelvic viscera: A 3.1 cm polypoid density is suggested along the anterior/inferior wall of the bladder on axial image #372. The uterus is surgically absent. No adnexal lesion is seen. Findings suggest pelvic floor prolapse. Skeletal structures: The skeletal structures are osteopenic. There is mild to moderate lumbosacral spondylosis. No lytic or blastic lesions are seen. IMPRESSION: 1. Suboptimal examination without oral and IV contrast. 2. There are no acute infectious or inflammatory findings in the abdomen or pelvis. Specifically, there is no CT evidence of acute pancreatitis as clinically queried. 3. Question a bladder mass. This was also suggested by ultrasound. Follow-up with urology is recommended. 4. Mild to moderate constipation. 5. Additional findings as above. Electronically signed by: Itz Hugo M.D. 05/28/2017 6:05 PM Dictated Date/Time: 05/28/2017 5:58 PM
[2017-05-28 18:50] VITALS: BP 129/75; PULSE 64; O2SAT 94
== END 2017-05-28 19:24 | disposition home or self-care (01) ==
LOC: C.EDB 15:12 → C.EDC 19:24
DX: R10.9 Unspecified abdominal pain (principal); R74.8 Abnormal levels of other serum enzymes; K59.00 Constipation, unspecified; N32.9 Bladder disorder, unspecified; K27.4 Chronic or unspecified peptic ulcer, site unspecified, with hemorrhage; I12.9 Hypertensive chronic kidney disease with stage 1 through stage 4 chronic kidney disease, or unspecified chronic kidney disease; E11.22 Type 2 diabetes mellitus with diabetic chronic kidney disease; N18.9 Chronic kidney disease, unspecified; F32.9 Major depressive disorder, single episode, unspecified; E78.5 Hyperlipidemia, unspecified; M19.90 Unspecified osteoarthritis, unspecified site; Z87.19 Personal history of other diseases of the digestive system; Z80.9 Family history of malignant neoplasm, unspecified; Z83.3 Family history of diabetes mellitus; Z83.79 Family history of other diseases of the digestive system; Z82.49 Family history of ischemic heart disease and other diseases of the circulatory system; Z82.0 Family history of epilepsy and other diseases of the nervous system

== ENCOUNTER → 2017-05-30 | Outpatient (CLI) | payer BC | END | disposition home or self-care (01) | LOC: C.LABBFT 10:48 | PROVIDERS: ATTEND Physician Assistant Medical | DX: R31.0 Gross hematuria (principal); R30.0 Dysuria ==

== ENCOUNTER → 2017-06-10 | Outpatient (CLI) | payer BC | END | disposition home or self-care (01) | LOC: C.LABBFT 11:19 | PROVIDERS: ATTEND Physician Assistant Medical | DX: R39.15 Urgency of urination (principal) ==

== ENCOUNTER → 2017-06-18 | Outpatient (CLI) | payer BC | END | disposition home or self-care (01) | LOC: C.LABBFT 14:09 | PROVIDERS: ATTEND Internal Medicine | DX: R39.15 Urgency of urination (principal); E78.5 Hyperlipidemia, unspecified ==

== ENCOUNTER → 2017-06-26 | Outpatient (CLI) | payer BC ==
--- NOTE | 2017-06-26 14:33 | DIAGNOSTIC IMAGING REPORT ---
R PELVIS/UNILATERAL HIP 2-3VIEWS CLINICAL HISTORY: SEVERE RT GROIN PAIN COMPARISON STUDY: Abdomen and pelvis CT 05/28/2017. FINDINGS: Moderate to severe cartilage space narrowing within the right hip and mild cartilage space narrowing within the left hip. Osteophytes within the right hip and subchondral sclerosis. This is consistent with osteoarthritis. No fracture or dislocation within the pelvis or hips. Degenerative changes within the lower lumbar spine. The sacrum appears intact. Mild vascular calcifications. IMPRESSION: 1. No fracture or dislocation within the pelvis or hips. 2. Moderate to severe right and mild left hip osteoarthritis. Electronically signed by: Doyle Rhodes M.D. 06/26/2017 2:31 PM Dictated Date/Time: 06/26/2017 2:29 PM
== END | disposition home or self-care (01) ==
LOC: C.RAD1850 13:54
PROVIDERS: ATTEND Nurse Practitioner
DX: R10.31 Right lower quadrant pain (principal); M16.12 Unilateral primary osteoarthritis, left hip

== ENCOUNTER → 2017-08-04 | Outpatient (CLI) | payer BC ==
--- NOTE | 2017-08-04 11:14 | DIAGNOSTIC IMAGING REPORT ---
ABDOMEN COMPLETE (US) CLINICAL HISTORY: Bladder mass. Imaging abnormality. COMPARISON STUDY: Abdominal ultrasound and CT of the abdomen and pelvis May 28, 2017. FINDINGS: The caliber of the abdominal aorta is normal. The liver is sonographically normal. No gallstones are identified. There is no biliary ductal dilatation. The pancreas is within normal limits by sonography. The size of the spleen is normal. The right kidney measures 9.5 cm in maximal dimension and the left measures 9.8 cm. There is no hydronephrosis. No ascites is present. Both ureteral jets were identified. A 2.1 cm polypoid appearing lesion within the posterior aspect of the bladder similar to exam of May 28, 2017. IMPRESSION: No significant change in a 2.1 cm polypoid lesion within the posterior aspect of the bladder. A urothelial lesion is the diagnosis of exclusion could be correlated with cystoscopy. Electronically signed by: Grupo Fletcher M.D. 08/04/2017 11:13 AM Dictated Date/Time: 08/04/2017 11:06 AM
== END | disposition home or self-care (01) ==
LOC: C.ULTR 09:53
PROVIDERS: ATTEND Nurse Practitioner
DX: N32.89 Other specified disorders of bladder (principal); R93.8 Abnormal findings on diagnostic imaging of other specified body structures

== ENCOUNTER → 2017-10-16 | Outpatient (CLI) | payer BC | END | disposition home or self-care (01) | LOC: C.LABBFT 13:38 | PROVIDERS: ATTEND Physician Assistant Medical | DX: F45.8 Other somatoform disorders (principal); M62.81 Muscle weakness (generalized) ==

== ENCOUNTER → 2017-10-21 | Outpatient (CLI) | payer BC ==
--- NOTE | 2017-10-21 11:59 | DIAGNOSTIC IMAGING REPORT ---
TWO VIEW CHEST CLINICAL HISTORY: Cough. FINDINGS: PA and lateral chest radiographs are compared to study dated 04/15/2017 and correlated with chest CT dated 03/07/2017. The cardiomediastinal silhouette is unremarkable noting atherosclerotic calcification of the thoracic aorta. Chronic interstitial thickening is similar to prior studies. No airspace consolidation or pleural effusion is seen. There is no pneumothorax. The skeletal structures are osteopenic. Degenerative changes noted throughout the thoracic spine. IMPRESSION: No acute cardiopulmonary abnormality. Electronically signed by: Itz Hugo M.D. 10/21/2017 11:57 AM Dictated Date/Time: 10/21/2017 11:55 AM
== END | disposition home or self-care (01) ==
LOC: C.RAD 11:25
PROVIDERS: ATTEND Physician Assistant Medical
DX: R05 Cough (principal)

== ENCOUNTER → 2017-10-30 | Outpatient (CLI) | payer BC ==
[2017-10-30 17:57] LABS: ALBUMIN 3.6 gm/dl (3.4-5.0); ALKALINE PHOSPHATASE 68 U/L (45-117); ALT/SGPT 23 U/L (12-78); AST/SGOT 24 U/L (15-37); BLOOD UREA NITROGEN 22 mg/dl (7-18); CALCIUM 9.3 mg/dl (8.5-10.1); CARBON DIOXIDE 28 mmol/L (21-32); CREATININE 1.04 mg/dl (0.60-1.20); GLUCOSE 84 mg/dl (70-99); POTASSIUM 4.1 mmol/L (3.5-5.1); SODIUM 141 mmol/L (136-145)
== END | disposition home or self-care (01) ==
LOC: C.LABBFT 12:22
PROVIDERS: ATTEND Internal Medicine
DX: R77.1 Abnormality of globulin (principal)

== ENCOUNTER → 2017-11-04 | Outpatient (CLI) | payer BC ==
[2017-11-05 05:56] LABS: HEMOGLOBIN A1C 6.5 % (4.5-5.6)
== END | disposition home or self-care (01) ==
LOC: C.LABBFT 10:59
PROVIDERS: ATTEND Internal Medicine
DX: R77.1 Abnormality of globulin (principal); E78.5 Hyperlipidemia, unspecified; R73.03 Prediabetes

== ENCOUNTER 2019-10-11 17:40 | Observation (INO) ==
[2019-10-11 20:42] LABS: Prothrombin Time 10.6 Seconds (9.0-12.0)
[2019-10-11 20:45] LABS: Basophils # (auto) 0.02 K/uL (0-0.2); Basophils % (auto) 0.3 %; Eosinophils # (auto) 0.11 K/uL (0-0.5); Eosinophils % (auto) 1.6 %; Hematocrit (blood only) 37.9 % (37-47); Hemoglobin 12.9 g/dL (12.0-16.0); Lymphocytes # (auto) 2.05 K/uL (1.2-3.4); Lymphocytes % (auto) 30.6 %; Mean Corpuscular Hemoglobin 32.4 pg (25-34); Mean Corpuscular Volume 95.2 fL (80-100); Monocytes # (auto) 0.48 K/uL (0.11-0.59); Monocytes % (auto) 7.2 %; Neutrophils # (auto) 4.03 K/uL (1.4-6.5); Neutrophils % (auto) 60.3 %; Platelet Count 173 K/uL (130-400); Red Blood Count 3.98 M/uL (4.2-5.4); White Blood Count 6.69 K/uL (4.8-10.8)
[2019-10-11] MEDS ORDERED: OPTIRAY 320 125ml IV PRN (20:45)
[2019-10-11 20:47] LABS: iSTAT Creatinine 1.1 mg/dl (0.6-1.3); iSTAT Hemoglobin 12.6 g/dl (12.0-16.0); iSTAT Ionized Calcium 1.25 mmol/l (1.12-1.32)
[2019-10-11 20:48] LABS: Alanine Aminotransferase 26 U/L (12-78); Albumin Level 3.5 gm/dl (3.4-5.0); Aspartate Aminotransferase 31 U/L (15-37); BUN Creatinine Ratio 22.6 (10-20); Blood Urea Nitrogen 27 mg/dl (7-18); Calcium 9.7 mg/dl (8.5-10.1); Carbon Dioxide 26 mmol/L (21-32); Chloride 106 mmol/L (98-107); Est GFR (African American) 47.8; Est GFR (Non-African American) 41.3; Glucose 87 mg/dl (70-99); Lipase 162 U/L (73-393); Magnesium 2.1 mg/dl (1.8-2.4); Sodium 139 mmol/L (136-145)
[2019-10-11 20:59] LABS: Albumin Globulin Ratio 0.7 (0.9-2); Alkaline Phosphatase 69 U/L (45-117); Bilirubin,Total 0.6 mg/dl (0.2-1); Globulin 5.1 gm/dl (2.5-4.0); Total Protein 8.6 gm/dl (6.4-8.2); Troponin I < 0.015 ng/ml (0-0.045)
--- NOTE | 2019-10-11 21:06 | CT Scan Report ---
CT ANGIOGRAM OF THE BRAIN COMBO; CT ANGIOGRAM OF THE NECK CLINICAL HISTORY: Aphasia. COMPARISON STUDY: CT of the brain dated 08/11/2018. Carotid artery ultrasound dated 08/31/2014. TECHNIQUE: Unenhanced axial CT scan of the brain is performed. Subsequently, following the IV adminis tration of 119 of Optiray 320, CT angiogram of the head and neck was performed from the aortic arch t o the vertex. Images are reviewed in the axial, sagittal, and coronal planes. 3-D MIPS images are cre ated and assessed. IV contrast was administered without complication. All measurements were calculate d based on NASCET criteria. A dose lowering technique was utilized adhering to the principles of ALA RA. The examination is compromised by motion artifact. CT DOSE: 1035.87 mGy.cm FINDINGS: Brain parenchyma: There is age-related involutional change noting moderate subcortical and periventri cular microangiopathic disease. There is no hemorrhage, mass effect, or evidence of acute territorial ischemia by CT criteria. There is no evidence of enhancing mass lesion on the angiogram phase images . The ventricles, sulci, and cisterns are prominent secondary to involutional change. Chronic lacunar infarcts are noted in the right caudate head and the right cerebellar hemisphere. Lima-white matter differentiation is preserved. No extra-axial fluid collection is seen. Mineralization is noted in the basal ganglia. Thoracic aorta: There is atherosclerotic calcification of the thoracic aorta. Visualized portions of the thoracic aorta are normal in caliber. The aortic arch demonstrates bovine variant anatomy. Right carotid arterial system: The right common carotid artery is widely patent, as are the right int ernal and external carotid arteries. Calcified plaque is noted in the carotid bulb. Left carotid arterial system: The left common carotid artery is widely patent, as are the left marketing research intern al and external carotid arteries. Calcified plaque is noted in the carotid bulb. Vertebral arteries: Subclavian arteries: Atherosclerotic plaque causes greater than 50% stenosis of the proximal left sub clavian artery below the thoracic outlet. The right subclavian artery is widely patent. Intracranial vasculature: There is atherosclerotic calcification of the cavernous carotid arteries. T here is origin of the right posterior cerebral artery. The internal carotid arteries are patent at the skull base, as are the anterior and middle cerebral arteries bilaterally. The vertebrobasilar system and posterior cerebral arteries are patent. There is atherosclerotic irregularity of the basi lar artery. The vertebral arteries are codominant. There is no aneurysm, high-grade stenosis, or foca l vessel cut off seen throughout the intracranial circulation. Jugular veins: Patent bilaterally. Dural sinuses: Patent. Lung apices: The vertebral arteries are widely patent and codominant. There is a 9 mm nodular density at the right apex seen on image #62 of the neck angiogram. Soft tissues: The visualized pharyngeal soft tissues are normal in appearance noting angiographic pha se technique. The oropharyngeal airway appears widely patent. The thyroid gland is enlarged and heter ogeneous. Low-attenuation nodules measure up to 14 mm. Coarse calcifications are noted in the right l obe. The salivary glands are normal in appearance. No cervical lymphadenopathy is seen. Skeletal structures: The skeletal structures are osteopenic. The calvarium appears intact. The cervic al spine is maintained noting multilevel spondylosis. No lytic or blastic lesion is identified. Orbits: The bony orbits are intact. Orbital contents are normal in appearance noting bilateral ocular lens implants. Sinuses and mastoids: The paranasal sinuses are clear. The mastoid air cells are well pneumatized. IMPRESSION: 1. There is no hemorrhage, mass effect, or evidence of acute territorial ischemia by CT criteria. 2. Unremarkable CT angiogram of the brain. 3. 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 4. Otherwise unremarkable CT angiogram of the neck. 5. There is a 9 mm irregular nodular density at the right pulmonary apex. This is pathologically inde terminant and may represent scarring/atelectasis. A follow-up chest CT is recommended in 3 months hilda e for reassessment. ACT 112: Negative or not required by law. Electronically signed by: Itz Hugo M.D. 10/11/2019 9:04 PM
[2019-10-11] MEDS ORDERED: CLOPIDOGREL BISULFATE 75 MG TAB PO ONE (22:09)
[2019-10-11 22:36] LABS: Appearance Urine Clear (Clear); Bacteria Urine Automated Negative (Negative); Bilirubin Urine Negative (Negative); Blood Urine Negative (Negative); Cast Urine Automated 0 /lpf (0-5); Color Urine Yellow; Glucose Urine UA Negative (Negative); Ketones Urine Negative (Negative); Leukocyte Esterase Urine Trace (Negative); Nitrite Urine Negative (Negative); Protein Urine Negative (Negative); RBC Urine Automated 0-4 /hpf (0-4); Specific Gravity Urine 1.033 (1.000-1.030); Urobilinogen Urine Negative (Negative)
--- NOTE | 2019-10-11 23:12 | History & Physical Report ---
Date of Service October 11, 2019 Assessment & Plan (1) Expressive aphasia: Normal Katherine is a 89 y/o female with past medical hx of dementia, arotic stenosis, HTN, HLD, arthritis, GERD, depression with anxiety, overactive bladder, carotid plaque who presented to [facility] ED for Expressive Aphasia/AMS. - Last time known well was 1pm per family report. - Appears to be improving, she is able to have fluent conversation, there is some word finding but this was with getting medical history which is quite complex for her. If expressive aphasia (Broca's) would expect right sided weakness, but patient with great strength on exam. Could possibly be a TIA since improving. - Also, Shea has a history of Dementia currently following with [facility] Neuro, and on Donepezil 10mg PO, c/w medication. - Her BP was significantly elevated 200s/90s, possible symptoms could be caused by hypertensive emergency. Will order Hydralazine 10mg IV q4h PRN for >180/>110. - Of note on Myrbetriq which causes HTN in 9-11% and has dose-related increases in BP and not recommended with severe uncontrolled HTN. Myrbetriq has no known anticholinergic properties. BP noted to be stable in outpatient setting, so this medication should be okay to continue. - Also on Tolterodine 4mg ER, which is an anticholinergic and should be considered to be discontinued to in the setting of patient receiving cholinesterase inhibitors. - Bladder scan PRN with straight cath PRN - Hx of Carotid plaque-patient had carotid Doppler 10/25/2016 that showed less than 50% bilateral internal carotid artery stenosis. She is not on aspirin because of history of ulcer. Plavix ordered. - will get a MRI brain, improving no need for STAT. - Neuro checks, dysphagia screening but handling fluids at bedside, if pass diet okay - No significant electrolyte abornalities - will continue to trend trops - Cardiac monitoring/telemetry FENGI: Heart health diet, dysphagia screening first, PPI Pantoprazole 40mg PO Code: DNR/DNI Dispo: Obs, med/surg tele DVT ppx: SCDs (2) Dementia: as noted above, c/w Donepezil 10mg daily, avoid anti-cholinergics. (3) GERD (gastroesophageal reflux disease): Pantoprazole 40mg PO qAM ordered (4) Aortic valve stenosis: follow-up echo 04/16/2017 showed mild to moderate aortic stenosis. The patient had seen Dr. Swartz. Cardiology suggested follow-up echo in about [id number] depending on her symptoms in course. No PFO/ASD on prior Defer need for echocardiogram as inpatient (5) Depression with anxiety: c/w Sertraline 200mg daily, she was curious if this medication could have caused symptoms. Doubt. (6) Generalized osteoarthritis: Tyenol for pain (7) Hypertension: as noted above, will monitor BP, Hydralazine PRN (8) Urge and stress incontinence: Noted to follow with [facility] Urology and has significant hx. Concern that medications could worsen mental status or cause worsening BP; more so concerned about the Tolterodine anti-cholinergic; should avoid anti-cholinergics in patient's treated with cholinesterase inhibitors. History of Present Illness Chief Complaint: Expressive Aphasia Primary Care Provider: Brant Oscar MD Lian Murphy is a 89 y/o female with past medical hx of dementia, arotic stenosis, HTN, HLD, arthritis, GERD, depression with anxiety, overactive bladder, carotid plaque who presented to [facility] ED for AMS. Family notes that patient had onset of expressive aphasia at around 1pm-4pm today. Patient's symptoms have improved at time of H+P. She notes that she woke up this morning without any new symptoms. She notes that about 4pm she had onset of difficulty "getting my words out." She states she knew what to say but was unable to say words. She also noted feeling off balance as well. Shea states her symptoms are getting better. She denies any unilateral numbness of unilateral weakness. She notes that she felt generalized weakness. She denies any trouble with drinking water which is at bedside. She denies any chest pain, nausea, vomiting, shortness of breath, head trauma, syncope. She is not in ASA because of a prior GI bleed. She was started on Plavix in the ED. She does follow with [facility] Neurology, Dr. Jones for mild to moderate dementia with last visit on 09/08/19 with dose of donepezil increased to 10mg/day. Allergies Allergy/AdvReac Type Severity Reaction Status Date / Time Penicillins Allergy Intermediate FELT Verified 10/11/19 21:14 TONGUE WAS SWELLING ciprofloxacin [From Cipro] Allergy Unknown ON [facility] Verified 10/11/19 21:14 LIST sulfamethoxazole Allergy Unknown ON [facility] Verified 10/11/19 21:14 [From Bactrim] LIST trimethoprim [From Bactrim] Allergy Unknown ON [facility] Verified 10/11/19 21:14 LIST aspirin AdvReac Severe HX Verified 10/11/19 21:14 BLEEDING ULCERS Home Medications Home Medications Medication Instructions Recorded Confirmed Type atorvastatin 40 mg tablet 40 mg PO HS #90 tab 11/26/18 10/11/19 Rx sertraline 100 mg tablet 200 mg PO QAM #180 tab 02/04/19 10/11/19 Rx multivit with 1 tab PO DAILY 03/04/19 10/11/19 History [id number]-lutein 8 mg iron-400 mcg-300 mcg tablet tolterodine 4 mg capsule,extended 4 mg PO DAILY #90 cap 06/16/19 10/11/19 Rx release 24 hr mirtazapine 7.5 mg tablet 7.5 mg PO HS #90 tab 08/09/19 10/11/19 Rx mirabegron 50 mg tablet,extended 50 mg PO DAILY #90 tab 08/20/19 10/11/19 Rx release 24 hr donepezil 10 mg tablet 10 mg PO QAM 90 Days #90 tab 10/06/19 10/11/19 Rx pantoprazole [Protonix] 20 mg PO BID 10/11/19 10/11/19 History clopidogrel 75 mg PO QAM 30 Days #30 tab 10/12/19 Rx Past Med/Surg History Medical History Abnormal ECG Acute urinary retention Aortic valve sclerosis Aortic valve stenosis (Chronic) Arthritis Bladder mass Carotid artery plaque Cough Depression with anxiety (Chronic) Depressive disorder, not elsewhere classified Diabetes mellitus type II, controlled, with no complications Elevated lipase Generalized osteoarthritis Generalized weakness Hearing loss Hypercalcemia Hypercholesteremia (Chronic) Hyperglobulinemia Hypertension (Chronic) Hypothyroidism Hypoxia Insomnia Laryngopharyngeal reflux Low back pain Lumbar spinal stenosis Lung nodules Microhematuria Mild cognitive impairment Mitral regurgitation Mitral valve annular calcification Neoplasm of uncertain behavior of skin Osteoarthritis of right knee Osteoarthritis, 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 Seizure Shoulder pain, right Stomach ulcer Syncope Urge and stress incontinence Surgical History History of bladder suspension procedure Abdomino-Vaginal Vesical Neck Suspension S/P hysterectomy Family History Mother Diabetes Sister Alcohol abuse Anxiety Gallbladder disease Heart disease Hypertension Cardiac disorder Son Cancer Grandfather Colorectal cancer Grandmother Colorectal cancer Other Deafness Hearing loss Social History Smoking Status: Never smoker Second Hand Exposure: No; Hx Alcohol Use: No Hx Substance Use: No Preferred Language: Romansh Communication Ability: Effective Visual Impairment: No Limitations Beliefs That Will Affect Care: None marital status: / Current Living Situation: Alone current occupational status: retired Feels Safe at Home: Yes Dental Care, Regularly: Yes Physical Activity Frequency: Does not Exercise Review of Systems Review of Systems: All systems reviewed & are unremarkable except as noted in HPI & below Constitutional: no fever and no chills Eyes: no diplopia and no spots in vision Ear, Nose, Mouth, Throat: no epistaxis and no sore throat Respiratory: no cough and no dyspnea Cardiovascular: no chest pain and no palpitations Gastrointestinal: no abdominal pain, no nausea and no vomiting Genitourinary: no dysuria and no urinary frequency Musculoskeletal: + joint pain (secondary to arthritis chronic); no back pain and no neck pain Integumentary: no rash Neurologic: no falls, no localized weakness, no numbness, no seizure-like activity and no syncope Physical Exam Constitutional: + thin, cooperative and comfortable; no acute distress Eyes: PERRL, conjunctivae normal, anicteric sclerae ENMT: external ear and nose normal, oropharynx normal Neck: normal visual inspection and trachea midline Respiratory: normal respiratory effort, lungs clear to auscultation Cardiovascular: Rate/Rhythm: regular rate and regular rhythm Heart Sounds: + murmur (3/6 systolic) Gastrointestinal (Abdomen): Inspection/Auscultation: normal bowel sounds Percussion/Palpation: abdomen soft; abdomen nontender, no guarding and abdomen not rigid Musculoskeletal: Head/Neck/Chest: normocephalic and head atraumatic extremities motor strength 5/5 and symmetrical Skin: no rashes, warm and dry Neurologic: CN's II-XI intact bilaterally, moves all extremities and awake Speech / Cognition: + expressive aphasia (only mildly when discussing remote medical hx); no receptive aphasia Cranial Nerves: EOM intact bilaterally, normal facial strength, tongue midline, able to elevate shoulders bilaterally and symmetric palate elevation Coordination: normal [id number]-[id number] test Psychiatric: A+Ox3, euthymic affect Results & Data Results & Data ([facility]) Vital Signs (Past 12 Hours) Vital Signs Temp Pulse Resp BP Pulse Ox 10/11/19 23:00 61 19 172/76 H 93 10/11/19 22:45 66 21 179/81 H 92 10/11/19 22:30 62 13 186/73 H 93 10/11/19 22:15 60 17 171/75 H 95 10/11/19 22:00 63 19 174/77 H 93 10/11/19 21:45 66 21 199/76 H 95 10/11/19 21:38 71 18 214/90 H 94 10/11/19 21:30 67 9 L 200/75 H 10/11/19 21:15 68 14 178/96 H 10/11/19 21:01 71 16 190/79 H 95 10/11/19 21:00 72 13 94 10/11/19 20:59 72 18 204/85 H 94 10/11/19 20:53 73 19 204/87 H 92 10/11/19 20:52 71 22 204/87 H 94 10/11/19 20:30 72 22 185/74 H 10/11/19 17:54 95 10/11/19 17:48 37.0 C 103 H 18 93 Laboratory Results Laboratory Results - last 24 hr 10/11/19 10/11/19 10/11/19 20:00 20:00 20:00 WBC 6.69 RBC 3.98 L Hgb 12.9 POC Hgb Hct 37.9 POC Hct MCV 95.2 MCH 32.4 MCHC 34.0 Plt Count 173 Immature Gran % (Auto) 0.0 Neut % (Auto) 60.3 Lymph % (Auto) 30.6 [place] % (Auto) 7.2 Eos % (Auto) 1.6 Baso % (Auto) 0.3 Neut # (Auto) 4.03 Lymph # (Auto) 2.05 [place] # (Auto) 0.48 Eos # (Auto) 0.11 Baso # (Auto) 0.02 Immature Gran # (Auto) 0.00 PT 10.6 INR 1.0 POC Sodium Sodium 139 POC Potassium Potassium 4.0 POC Chloride Chloride 106 Carbon Dioxide 26 POC Total CO2 Anion Gap 7.0 POC Anion Gap POC BUN BUN 27 H Creatinine 1.17 POC Creatinine Est Cr Clr Drug Dosing Not Reportable Est GFR ( Amer) 47.8 Est GFR (Non-Af Amer) 41.3 BUN/Creatinine Ratio 22.6 H Glucose 87 POC Glucose POC Glucose (other) Calcium 9.7 POC Ioniz Calcium Blanca Magnesium 2.1 Total Bilirubin 0.6 AST 31 ALT 26 Alkaline Phosphatase 69 Troponin I < 0.015 Total Protein 8.6 H Albumin 3.5 Globulin 5.1 H Albumin/Globulin Ratio 0.7 L Lipase 162 TSH 0.960 Urine Color Urine Appearance Urine pH Ur Specific [place] Urine Protein Urine Glucose (UA) Urine Ketones Urine Blood Urine Nitrite Urine Bilirubin Urine Urobilinogen Ur Leukocyte Esterase Urine WBC (Auto) Urine RBC (Auto) U Hyaline Cast (Auto) U Epithel Cells (Auto) Urine Bacteria (Auto) 10/11/19 10/11/19 10/11/19 20:21 20:28 21:38 WBC RBC Hgb POC Hgb 12.6 Hct POC Hct 37 MCV MCH MCHC Plt Count Immature Gran % (Auto) Neut % (Auto) Lymph % (Auto) [place] % (Auto) Eos % (Auto) Baso % (Auto) Neut # (Auto) Lymph # (Auto) [place] # (Auto) Eos # (Auto) Baso # (Auto) Immature Gran # (Auto) PT INR POC Sodium 141 Sodium POC Potassium 4.0 Potassium POC Chloride 104 Chloride Carbon Dioxide POC Total CO2 26 Anion Gap POC Anion Gap 16.0 POC BUN 28 H BUN Creatinine POC Creatinine 1.1 Est Cr Clr Drug Dosing Est GFR ( Amer) Est GFR (Non-Af Amer) BUN/Creatinine Ratio Glucose POC Glucose 97 POC Glucose (other) 91 Calcium POC Ioniz Calcium Blanca 1.25 Magnesium Total Bilirubin AST ALT Alkaline Phosphatase Troponin I Total Protein Albumin Globulin Albumin/Globulin Ratio Lipase TSH Urine Color Yellow Urine Appearance Clear Urine pH 5.0 Ur Specific [place] 1.033 H Urine Protein Negative Urine Glucose (UA) Negative Urine Ketones Negative Urine Blood Negative Urine Nitrite Negative Urine Bilirubin Negative Urine Urobilinogen Negative Ur Leukocyte Esterase Trace H Urine WBC (Auto) 5-10 H Urine RBC (Auto) 0-4 U Hyaline Cast (Auto) 0 U Epithel Cells (Auto) 5-10 H Urine Bacteria (Auto) Negative Diagnostic Findings CTA Brain/Neck IMPRESSION: 1. There is no hemorrhage, mass effect, or evidence of acute territorial ischemia by CT criteria. 2. Unremarkable CT angiogram of the brain. 3. 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 4. Otherwise unremarkable CT angiogram of the neck. 5. There is a 9 mm irregular nodular density at the right pulmonary apex. This is pathologically indeterminant and may represent scarring/atelectasis. A follow-up chest CT is recommended in 3 months time for reassessment. Medications Administered Ioversol (Optiray 320 125ml) 119 ml IV ONCE PRN PRN Reason: Interaction Checking Stop: 10/15/19 20:44 Last Admin: 10/11/19 20:45 Dose: 119 ml Documented by: [id number] Code Status & VTE Plan Code Status DNR/DNI VTE Prophylaxis Plan VTE Prophylaxis will be ordered: Yes Supervising Physician Co-Signing Physician Notes Attending addendum: I have physically seen this patient, have supervised the medical residents activities, and agree with the H&P unless as otherwise noted. Assessment and Plan: Expressive aphasia- CT head negative. CTA head and neck negative Unable to take aspirin. Start clopidogrel 75 mg daily. Order MRI brain without contrast. Order complete echocardiogram Stroke without TPA order set Consult PT/OT/speech therapy/neurology. Remainder of orders and notations as noted Resident Activity Tracking Resident Involvement: Resident Care Provided Care Provided: Adult [facility] Medicine
[2019-10-12] MEDS ORDERED: ONDANSETRON INJ 2 MG/ML 2 ML VIAL IV PRN (00:09)
[2019-10-12] MEDS ORDERED: POLYETHYLENE (MIRALAX) 17 GM PACK PO PRN (00:09)
[2019-10-12] MEDS ORDERED: HydrALAZINE HCL 20 MG/ML VIAL IV PRN (00:09)
[2019-10-12] MEDS ORDERED: PHARMACIST DISCHARGE MED REC CONSULT PRN (00:09)
[2019-10-12] MEDS ORDERED: ALUMINUM/MAGNESIUM SUSP 30 ML UDC PO PRN (00:09)
[2019-10-12] MEDS ORDERED: MAGNESIUM HYDROXIDE SUSP 30 ML UDC PO PRN (00:09)
[2019-10-12] MEDS ORDERED: ACETAMINOPHEN 325 MG TAB PO PRN (00:09)
--- NOTE | 2019-10-12 00:13 | Emergency Department Note ---
Impression & Plan Stroke-like symptoms, Expressive aphasia ED Provider Note INFORMANT: [Patient ED PROVIDER(S): Osbaldo Agarwal MD CHIEF COMPLAINT: Expressive aphasia PLAN: Disposition: Admitted Condition: [Good] MEDICAL DECISION MAKING: Patient presented with difficulty speaking and history consistent with expressive aphasia. She is out of the thrombolytic window. She has no other focal neurologic findings. CT imaging including angiography was performed and was negative. The patient CBC, coags, chemistry panel, troponin, magnesium and LFTs were unremarkable. The patient had an ECG that showed a normal sinus rhyth m without ischemic change or dysrhythmia. She was monitored. She was reassessed and was feeling better. I did consult with [facility] tele- stroke, Dr. Corrales. He recommended against TPA given the timeframe from symptom onset and recommended antiplatelet therapy with aspirin. The patient is allergic to aspirin. She was given a dose of oral Plavix. She was reassessed and was doing better. He did recommend admission for stroke work-up. Consultation was made with the [facility] service, Dr. Jakub Topete. He evaluated patient in the ER and admitted her for further management. Triage Nursing notes reviewed and agree them. Vital Signs: reviewed and remarkable for mild hypertension Differential diagnosis: CVA, TIA infection, dehydration, metabolic abnormality, hypo/hyperglycemia, electrolyte disturbance, anemia, hypoxia, cardiac sources, intracerebral event, toxicologic, neurologic, as well as other pathologies. Diagnostics interpreted by me: ECG: Rate:71 Rhythm:Normal sinus Lawn:Normal QRS:Normal ST segements:No elevation or depression Other:No PACs or PVCs Cardiac Monitoring:Cardiac monitoring ordered by me: The patient was placed on continuous cardiac monitoring and observed. It revealed a normal sinus rhythm at 75 beats per minute without ectopy or evidence of dysrhythmia. Imaging studies: Chest x-ray. Findings: A chest x-ray was performed and revealed no pneumothorax, effusion, infiltrate, pulmonary edema, free air under the diaphragm, or wide mediastinum. Impression: No acute disease. Head CT: A noncontrast CT scan of the head was performed and was negative for tumor, fracture, intracranial hemorrhage, or other acute pathology. CT angiography of the head and neck performed and revealed no evidence of vessel cutoff, aneurysm, or focal dissection. No acute process. [facility] HPI: The patient is a 89 year old female who presents to the Emergency Room with complaints of difficulty finding her words. This started 1600 hrs. today and is persisting. The patient also notes the following associated symptoms, none. The patient has taken no medication for relieving factors. Current pain is rated as 0/10. Patient states she was doing well all day today. She was with family. She was doing her housework and then noted around 1600 hrs. the symptoms started with inability to find her words or get her words out clearly. Pt denies LOC, headache, fevers, chills, diaphoresis, visual changes, neck pain, chest pain, breathing difficulties, nausea, vomiting, abdominal pain, back pain, melena, hematochezia, urinary symptoms, numbness, weakness, lymphadenopathy, rash, or other complaints. ROS: See above HPI for pertinent positives & negatives. A total of [10] systems reviewed and were otherwise negative. PAST MEDICAL HISTORY:[See Below] high cholesterol, GERD PAST SURGICAL HISTORY:[See Below] FAMILY HISTORY:[See Below] SOCIAL HISTORY:[See Below] lives alone HOME MEDICATIONS:[See Below] ALLERGIES:[See Below] VITALS:[See Below] PHYSICAL EXAMINATION: GENERAL: Awake, alert, well-appearing, in no distress HENT: Normocephalic, atraumatic. Oropharynx unremarkable. EYES: Normal conjunctiva. Sclera non-icteric. EOMI. PERRLA. NECK: Inspection normal. Non-tender. Supple. No nuchal rigidity. FROM. No masses. RESPIRATORY: Clear to auscultation. No wheezes. No rales. Normal respiratory effort. CARDIAC: Normal rate. Normal rhythm. No murmurs. No rubs. Extremities warm and well perfused. Pulses equal. No JVD. GI: Soft, non-distended. No tenderness to palpation. No rebound or guarding. No masses. RECTAL: Deferred. MUSCULOSKELETAL: Atraumatic. Chest examination reveals no tenderness. The back is symmetrical on inspection without obvious abnormality. There is no CVA tenderness to palpation. No joint edema. LOWER EXTREMITIES: Calves are equal size bilaterally and non-tender. No edema. N o discoloration. NEURO: Normal sensorium. No sensory or motor deficits noted. Some difficulty with expressive aphasia. Normal rapid alternating movements. Cranial nerves II through XII intact otherwise. SKIN: No rash or jaundice noted. ED COURSE: The patient was seen and examined with Dr. Hull, resident physician. We discussed the case and treatments ordered, reviewed the results, and determine the disposition. I have been directly involved with the management and disposition as well as independently evaluated the patient as documented in this note. [Critical Care:] [None] Osbaldo Agarwal MD Past Med/Surg History Social History Smoking Status: Never smoker Second Hand Exposure: No; Hx Alcohol Use: No Hx Substance Use: No Preferred Language: Fijian Visual Impairment: No Limitations marital status: / Current Living Situation: Alone current occupational status: retired Feels Safe at Home: Yes Dental Care, Regularly: Yes Physical Activity Frequency: Does not Exercise Allergies Allergies Allergy/AdvReac Type Severity Reaction Status Date / Time Penicillins Allergy Intermediate FELT Verified 10/11/19 21:14 TONGUE WAS SWELLING ciprofloxacin [From Cipro] Allergy Unknown ON [facility] Verified 10/11/19 21:14 LIST sulfamethoxazole Allergy Unknown ON [facility] Verified 10/11/19 21:14 [From Bactrim] LIST trimethoprim [From Bactrim] Allergy Unknown ON [facility] Verified 10/11/19 21:14 LIST aspirin AdvReac Severe HX Verified 10/11/19 21:14 BLEEDING ULCERS Home Meds Home Medications Medication Instructions Recorded Confirmed multivit with 1 tab PO DAILY 03/04/19 10/11/19 [id number] 8 mg iron-400 mcg-300 mcg tablet pantoprazole [Protonix] 20 mg PO BID 10/11/19 10/11/19 Previous Rx's Medication Instructions Recorded atorvastatin 40 mg tablet 40 mg PO HS #90 tab 11/26/18 sertraline 100 mg tablet 200 mg PO QAM #180 tab 02/04/19 tolterodine 4 mg capsule,extended 4 mg PO DAILY #90 cap 06/16/19 release 24 hr mirtazapine 7.5 mg tablet 7.5 mg PO HS #90 tab 08/09/19 mirabegron 50 mg tablet,extended 50 mg PO DAILY #90 tab 08/20/19 release 24 hr donepezil 10 mg tablet 10 mg PO QAM 90 Days #90 tab 10/06/19 Results & Data (ED) Vital Signs Vital Signs - 24 hr 10/11/19 17:48 10/11/19 17:54 10/11/19 20:30 Temperature 37.0 C Temperature Source Oral Pulse Rate 103 H 72 Pulse Rate from SpO2 Sensor Respiratory Rate 18 22 Respiratory Effort / Characteristics Non-Labored Spontaneous Respiratory Depth Normal Respiratory Pattern Regular Blood Pressure 185/74 H Blood Pressure Mean 134 Blood Pressure Position Sitting Pulse Oximetry 93 95 Oxygen Delivery Method Room Air Room Air Sepsis Recent Fever Within 48 Hours No Sepsis New/Unexplained Change in Mental Status N/A Sepsis Action Taken by Nursing No Action Required 10/11/19 20:52 10/11/19 20:53 10/11/19 20:59 Temperature Temperature Source Pulse Rate 71 73 72 Pulse Rate from SpO2 Sensor 71 72 72 Respiratory Rate 22 19 18 Respiratory Effort / Characteristics Respiratory Depth Respiratory Pattern Blood Pressure 204/87 H 204/87 H 204/85 H Blood Pressure Mean 126 121 102 Blood Pressure Position Pulse Oximetry 94 92 94 Oxygen Delivery Method Sepsis Recent Fever Within 48 Hours Sepsis New/Unexplained Change in Mental Status Sepsis Action Taken by Nursing 10/11/19 21:00 10/11/19 21:01 10/11/19 21:15 Temperature Temperature Source Pulse Rate 72 71 68 Pulse Rate from SpO2 Sensor 72 71 Respiratory Rate 13 16 14 Respiratory Effort / Characteristics Respiratory Depth Respiratory Pattern Blood Pressure 190/79 H 178/96 H Blood Pressure Mean 98 148 Blood Pressure Position Pulse Oximetry 94 95 Oxygen Delivery Method Sepsis Recent Fever Within 48 Hours Sepsis New/Unexplained Change in Mental Status Sepsis Action Taken by Nursing 10/11/19 21:30 10/11/19 21:38 10/11/19 21:45 Temperature Temperature Source Pulse Rate 67 71 66 Pulse Rate from SpO2 Sensor 72 67 Respiratory Rate 9 L 18 21 Respiratory Effort / Characteristics Respiratory Depth Respiratory Pattern Blood Pressure 200/75 H 214/90 H 199/76 H Blood Pressure Mean 106 123 92 Blood Pressure Position Pulse Oximetry 94 95 Oxygen Delivery Method Sepsis Recent Fever Within 48 Hours Sepsis New/Unexplained Change in Mental Status Sepsis Action Taken by Nursing 10/11/19 22:00 10/11/19 22:15 10/11/19 22:30 Temperature Temperature Source Pulse Rate 63 60 62 Pulse Rate from SpO2 Sensor 63 60 62 Respiratory Rate 19 17 13 Respiratory Effort / Characteristics Respiratory Depth Respiratory Pattern Blood Pressure 174/77 H 171/75 H 186/73 H Blood Pressure Mean 97 131 92 Blood Pressure Position Pulse Oximetry 93 95 93 Oxygen Delivery Method Sepsis Recent Fever Within 48 Hours Sepsis New/Unexplained Change in Mental Status Sepsis Action Taken by Nursing 10/11/19 22:45 Temperature Temperature Source Pulse Rate 66 Pulse Rate from SpO2 Sensor 68 Respiratory Rate 21 Respiratory Effort / Characteristics Respiratory Depth Respiratory Pattern Blood Pressure 179/81 H Blood Pressure Mean 100 Blood Pressure Position Pulse Oximetry 92 Oxygen Delivery Method Sepsis Recent Fever Within 48 Hours Sepsis New/Unexplained Change in Mental Status Sepsis Action Taken by Nursing Laboratory Data Result diagrams: 10/11/19 20:00 10/11/19 20:00 Lab Results 10/11/19 10/11/19 10/11/19 Range/Units 20:00 20:00 20:00 WBC 6.69 (4.8-10.8) K/uL RBC 3.98 L (4.2-5.4) M/uL Hgb 12.9 (12.0-16.0) g/dL POC Hgb (12.0-16.0) g/dl Hct 37.9 (37-47) % POC Hct (37-47) % MCV 95.2 (80-100) fL MCH 32.4 (25-34) pg MCHC 34.0 (32-36) g/dL Plt Count 173 (130-400) K/uL Immature Gran % (Auto) 0.0 % Neut % (Auto) 60.3 % Lymph % (Auto) 30.6 % [place] % (Auto) 7.2 % Eos % (Auto) 1.6 % Baso % (Auto) 0.3 % Neut # (Auto) 4.03 (1.4-6.5) K/uL Lymph # (Auto) 2.05 (1.2-3.4) K/uL [place] # (Auto) 0.48 (0.11-0.59) K/uL Eos # (Auto) 0.11 (0-0.5) K/uL Baso # (Auto) 0.02 (0-0.2) K/uL Immature Gran # (Auto) 0.00 (0.00-0.02) K/uL PT 10.6 (9.0-12.0) Seconds INR 1.0 (0.9-1.1) POC Sodium (135-144) mmol/L Sodium 139 (136-145) mmol/L POC Potassium (3.3-5.0) mmol/L Potassium 4.0 (3.5-5.1) mmol/L POC Chloride (101-112) mmol/L Chloride 106 (98-107) mmol/L Carbon Dioxide 26 (21-32) mmol/L POC Total CO2 (24-31) mmol/L Anion Gap 7.0 (3-11) POC Anion Gap (16-25) mmol/L POC BUN (7-18) mg/dl BUN 27 H (7-18) mg/dl Creatinine 1.17 (0.6-1.2) mg/dl POC Creatinine (0.6-1.3) mg/dl Est Cr Clr Drug Dosing Not Reportable Est GFR ( Amer) 47.8 Est GFR (Non-Af Amer) 41.3 BUN/Creatinine Ratio 22.6 H (10-20) Glucose 87 (70-99) mg/dl POC Glucose (70-99) mg/dl POC Glucose (other) (70-99) mg/dl Calcium 9.7 (8.5-10.1) mg/dl POC Ioniz Calcium Blanca (1.12-1.32) mmol/l Magnesium 2.1 (1.8-2.4) mg/dl Total Bilirubin 0.6 (0.2-1) mg/dl AST 31 (15-37) U/L ALT 26 (12-78) U/L Alkaline Phosphatase 69 (45-117) U/L Troponin I < 0.015 (0-0.045) ng/ml Total Protein 8.6 H (6.4-8.2) gm/dl Albumin 3.5 (3.4-5.0) gm/dl Globulin 5.1 H (2.5-4.0) gm/dl Albumin/Globulin Ratio 0.7 L (0.9-2) Lipase 162 (73-393) U/L TSH 0.960 (0.300-4.500) uIu/ml Urine Color Urine Appearance (Clear) Urine pH (4.5-7.5) Ur Specific [place] (1.000-1.030) Urine Protein (Negative) Urine Glucose (UA) (Negative) Urine Ketones (Negative) Urine Blood (Negative) Urine Nitrite (Negative) Urine Bilirubin (Negative) Urine Urobilinogen (Negative) Ur Leukocyte Esterase (Negative) Urine WBC (Auto) (0-5) /hpf Urine RBC (Auto) (0-4) /hpf U Hyaline Cast (Auto) (0-5) /lpf U Epithel Cells (Auto) (0-5) /lpf Urine Bacteria (Auto) (Negative) 10/11/19 10/11/19 10/11/19 Range/Units 20:21 20:28 21:38 WBC (4.8-10.8) K/uL RBC (4.2-5.4) M/uL Hgb (12.0-16.0) g/dL POC Hgb 12.6 (12.0-16.0) g/dl Hct (37-47) % POC Hct 37 (37-47) % MCV (80-100) fL MCH (25-34) pg MCHC (32-36) g/dL Plt Count (130-400) K/uL Immature Gran % (Auto) % Neut % (Auto) % Lymph % (Auto) % [place] % (Auto) % Eos % (Auto) % Baso % (Auto) % Neut # (Auto) (1.4-6.5) K/uL Lymph # (Auto) (1.2-3.4) K/uL [place] # (Auto) (0.11-0.59) K/uL Eos # (Auto) (0-0.5) K/uL Baso # (Auto) (0-0.2) K/uL Immature Gran # (Auto) (0.00-0.02) K/uL PT (9.0-12.0) Seconds INR (0.9-1.1) POC Sodium 141 (135-144) mmol/L Sodium (136-145) mmol/L POC Potassium 4.0 (3.3-5.0) mmol/L Potassium (3.5-5.1) mmol/L POC Chloride 104 (101-112) mmol/L Chloride (98-107) mmol/L Carbon Dioxide (21-32) mmol/L POC Total CO2 26 (24-31) mmol/L Anion Gap (3-11) POC Anion Gap 16.0 (16-25) mmol/L POC BUN 28 H (7-18) mg/dl BUN (7-18) mg/dl Creatinine (0.6-1.2) mg/dl POC Creatinine 1.1 (0.6-1.3) mg/dl Est Cr Clr Drug Dosing Est GFR ( Amer) Est GFR (Non-Af Amer) BUN/Creatinine Ratio (10-20) Glucose (70-99) mg/dl POC Glucose 97 (70-99) mg/dl POC Glucose (other) 91 (70-99) mg/dl Calcium (8.5-10.1) mg/dl POC Ioniz Calcium Blanca 1.25 (1.12-1.32) mmol/l Magnesium (1.8-2.4) mg/dl Total Bilirubin (0.2-1) mg/dl AST (15-37) U/L ALT (12-78) U/L Alkaline Phosphatase (45-117) U/L Troponin I (0-0.045) ng/ml Total Protein (6.4-8.2) gm/dl Albumin (3.4-5.0) gm/dl Globulin (2.5-4.0) gm/dl Albumin/Globulin Ratio (0.9-2) Lipase (73-393) U/L TSH (0.300-4.500) uIu/ml Urine Color Yellow Urine Appearance Clear (Clear) Urine pH 5.0 (4.5-7.5) Ur Specific [place] 1.033 H (1.000-1.030) Urine Protein Negative (Negative) Urine Glucose (UA) Negative (Negative) Urine Ketones Negative (Negative) Urine Blood Negative (Negative) Urine Nitrite Negative (Negative) Urine Bilirubin Negative (Negative) Urine Urobilinogen Negative (Negative) Ur Leukocyte Esterase Trace H (Negative) Urine WBC (Auto) 5-10 H (0-5) /hpf Urine RBC (Auto) 0-4 (0-4) /hpf U Hyaline Cast (Auto) 0 (0-5) /lpf U Epithel Cells (Auto) 5-10 H (0-5) /lpf Urine Bacteria (Auto) Negative (Negative) Administered Medications Ioversol (Optiray 320 125ml) 119 ml IV ONCE PRN PRN Reason: Interaction Checking Stop: 10/15/19 20:44 Last Admin: 10/11/19 20:45 Dose: 119 ml Documented by: [id number] Discontinued Medications Clopidogrel Bisulfate (Plavix) 75 mg PO NOW ONE Stop: 10/11/19 22:10 Last Admin: 10/11/19 22:27 Dose: 75 mg Documented by: [id number] Discharge Plan Visit Data *Final* Discharge Date/Time: 10/11/19 23:37 Chief Complaint: Altered Mental Status Stated Complaint: CONFUSED - TROUBLE TALKING ED Provider: Osbaldo Agarwal Discharge Problem: Stroke-like symptoms, Expressive aphasia Patient Disposition: Admitted As Inpatient Discharge Instructions Interventions: ED Discharge Assessment Last Done: 10/11/19 23:37
[2019-10-12] MEDS ORDERED: GADOBUTROL 65ML VIAL IV PRN (02:11)
--- NOTE | 2019-10-12 07:36 | Magnetic Resonance Report ---
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 There is no restricted diffusio n to suggest acute or subacute infarct. Midline structures including the corpus callosum, brainstem, optic chiasm, pituitary and pineal glands appear unremarkable on the sagittal T1 series. No cerebella r tonsillar herniation. Degenerative changes are noted involving the imaged cervical spine. No acute intracranial hemorrhage, midline shift, abnormal extra axial collection, hydrocephalus or in tracranial mass. Age-related involutional changes with mild ex vacuo ventriculomegaly. Extensive T2/F LAIR hyperintensities are noted involving the white matter of the bilateral cerebral hemispheres, pro gressively worsened from comparison. Linear 7 mm remote lacunar infarct involves the mid aspect of th e right cerebellar hemisphere. No acute seizure focus or mesial temporal sclerosis identified. No abn ormal intra-axial or extra-axial enhancement. Major vascular flow voids are patent. Cerebral venous s inuses are patent. Skull and soft tissues are within normal limits. Prior bilateral lens replacement. IMPRESSION: 1. No acute intracranial abnormality, specifically there is no evidence of acute or subacute infarct. 2. No acute seizure focus or mesial temporal sclerosis identified. 3. No abnormal enhancement. Age-related involutional changes with extensive T2/FLAIR hyperintensities suggestive of chronic microvascular ischemic disease. ACT 112: Negative or not required by law. The above report was generated using voice recognition software. It may contain grammatical, syntax o r spelling errors. Electronically signed by: Charan Ortiz M.D. 10/12/2019 7:35 AM
[2019-10-12 08:23] LABS: Basophils # (auto) 0.01 K/uL (0-0.2); Basophils % (auto) 0.2 %; Eosinophils # (auto) 0.12 K/uL (0-0.5); Eosinophils % (auto) 2.2 %; Hematocrit (blood only) 33.5 % (37-47); Hemoglobin 11.6 g/dL (12.0-16.0); Immature Granulocytes # (auto) 0.01 K/uL (0.00-0.02); Immature Granulocytes % (auto) 0.2 %; Lymphocytes # (auto) 1.55 K/uL (1.2-3.4); Lymphocytes % (auto) 28.3 %; Mean Corpuscular Hemoglobin 32.1 pg (25-34); Mean Corpuscular Hgb Conc 34.6 g/dL (32-36); Mean Corpuscular Volume 92.8 fL (80-100); Monocytes # (auto) 0.59 K/uL (0.11-0.59); Monocytes % (auto) 10.8 %; Neutrophils # (auto) 3.19 K/uL (1.4-6.5); Neutrophils % (auto) 58.3 %; Platelet Count 153 K/uL (130-400); Red Blood Count 3.61 M/uL (4.2-5.4); White Blood Count 5.47 K/uL (4.8-10.8)
[2019-10-12 08:52] LABS: Est GFR (African American) 57.2; Est GFR (Non-African American) 49.3; Potassium 3.9 mmol/L (3.5-5.1)
[2019-10-12 08:53] LABS: BUN Creatinine Ratio 23.9 (10-20); Calcium 9.2 mg/dl (8.5-10.1); Creatinine Clr Calc Pharmacy 33.2 ml/min
[2019-10-12] MEDS ORDERED: SERTRALINE HCL 100 MG TABLET PO SCH (09:00)
[2019-10-12] MEDS ORDERED: PANTOprazole 40 MG TAB PO SCH (09:00)
[2019-10-12] MEDS ORDERED: DONEPEZIL HCL 10 MG TAB PO SCH (09:00)
[2019-10-12] MEDS ORDERED: CLOPIDOGREL BISULFATE 75 MG TAB PO SCH (09:00)
--- NOTE | 2019-10-12 11:37 | Hospitalist Progress Note ---
Date of Service October 12, 2019 Assessment & Plan (1) Expressive aphasia: Shea Murphy is a 89 y/o female with past medical hx of dementia, arotic stenosis, HTN, HLD, arthritis, GERD, depression with anxiety, overactive bladder, carotid plaque who presented to [facility] ED for Expressive Aphasia/AMS. Expressive Aphasia 2/2 TIA vs HTN Emergency - Last time known well was 1pm 10/10 per family report. - Appears to be improving, she is able to have fluent conversation - Some speech latency increase and expressive aphasia/word searching persists today, although improved from prior per pt. ?TIA since improving. - Her BP was significantly elevated 200s/90s, possible symptoms could be caused by hypertensive emergency. Hydralazine 10mg IV q4h PRN for >180/>110, was not required overnight after admit. Clinically consistent with TIA. - Also on Tolterodine 4mg ER, which is an anticholinergic and should be considered to be discontinued to in the setting of patient receiving cholinesterase inhibitors. - Hx of Carotid plaque-patient had carotid Doppler 10/25/2016 that showed less than 50% bilateral internal carotid artery stenosis. She is not on aspirin because of history of ulcer. Plavix ordered. -CTA: 1. 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 There is a 9 mm irregular nodular density at the right pulmonary apex. This is pathologically indeterminant and may represent scarring/atelectasis. A follow-up chest CT is recommended in 3 months time for reassessment. -MRI-B: naf - No significant electrolyte abornalities - Cardiac monitoring/telemetry - Anticipate continuation of antiplatelet therapy for secondary prevention, PT/OT, progressing towards discharge Dementia: - D[employer]EL [employer] Donepezil 10mg daily - avoid anti-cholinergics. GERD (gastroesophageal reflux disease): - Pantoprazole 40mg PO qAM ordered Aortic valve stenosis: - follow-up echo 04/16/2017 showed mild to moderate aortic stenosis. The patient had seen Dr. Swartz. - Cardiology suggested follow-up echo in about [id number] depending on her symptoms in course. - No PFO/ASD on prior - Defer need for echocardiogram as inpatient Depression with anxiety: - D[employer] Sertraline 200mg daily. - Pt curious if this medication could have caused symptoms, low suspicion for causative agent. Discussed w pt by admitting provider Generalized osteoarthritis: - APAP PRN Hypertension: - Hydralazine PRN Urge and stress incontinence: - Noted to follow with [facility] Urology and has significant hx. Concern that medications could worsen mental status or cause worsening BP; more so concerned about the Tolterodine anti-cholinergic; should avoid anti-cholinergics in patient's treated with cholinesterase inhibitors. Code: DNR/DNI FENGI: Heart health diet Dispo: Obs, med/surg tele Ppx: SCDs, PPI Pantoprazole 40mg PO (2) Pelvic pain: (3) Hip pain: (4) Dementia: (5) GERD (gastroesophageal reflux disease): (6) Aortic valve stenosis: (7) Depression with anxiety: (8) Carotid artery plaque: (9) Diabetes mellitus type II, controlled, with no complications: (10) Hearing loss: (11) Generalized osteoarthritis: (12) Hyperglobulinemia: Admission and Anticipated Discharge Date Admission Date: October 11, 2019 Supervising Physician Co-Signing Physician Notes see discharge summary Subjective Seen at the bedside this morning. She reports she is very nauseous that she took her medications on an empty stomach, has had a small amount of nonbloody nonbilious emesis but expects to feel better after she has breakfast. She Thelma she feels much better than yesterday, but is still having some persistent difficulty with word finding and does not feel at her baseline. Denies headache. No focal neurologic deficits, denies focal weakness or sensory change. She reports she lives at home, but has sons in the area which are able to check on her and give her support. Review of Systems Review of Systems: Constitutional: Denies fever, chills. Endorses global fatigue without focal weakness Eyes: Denies acute vision change ENT: Denies ear pain, sore throat, sinus pain Cardiovascular: Denies Chest pain, chest pressure, palpitations, extremity swelling Respiratory: Denies shortness of breath, cough, sputum production, difficulty breathing Gastrointestinal: Denies abdominal pain, constipation, diarrhea Genitourinary: Denies pain with urination, urinary urgency, urinary frequency Musculoskeletal: Denies focal weakness, and new muscle/joint aches. Endorses chronic arthritis pain. Integumentary:Denies rash, lesions, bruising Neurological: Denies headache, numbness, tingling, focal weakness Physical Exam Physical Exam: General: A&Ox3. NAD. Cooperative. Mild expressive aphasia appreciable, slightly increased speech latency speech otherwise fluent. HEENT: Atraumatic, normocephalic. Pulm: CTAB A&P. -wheezes, -rales, -rhonchi. Symmetrical chest rise. No increase work of breathing. No respiratory distress. Cardiac: RRR, systolic murmur present. Radial pulses intact and symmetrical. Abdominal: Nontender, nondistended, soft. BS present. CN II: Visual arora are full to confrontation. Pupils are equal and react to light and accomidation. Visual acuity grossly intact. CN III, IV, : At primary gaze, there is no eye deviation. EoM intact without nystagmus. No visual field cuts. CN V: Facial sensation is intact to soft touch in all 3 divisions bilaterally. CN VII: No facial asymmetry, full strength to eyebrow raise, smile, eye close, and cheek puff. CN VII: Hearing is grossly intact. CN IX, X: Palate elevates symmetrically. Phonation is normal without dysarthria. Mild expressive aphasia with increased speech latency appreciable. CN XI: Head turning and shoulder shrug are intact CN XII: Tongue protrudes midline. Sensory: Light touch, pinprick intact in upper and low extremities without deficit or asymmetry. Strength: RUE: Shoulder flexion/extension/internal rotation/external rotation, elbow flexion/extension, finger flexion/extension, turbine room attendant strength, interosseous 5/5 LUE: Shoulder flexion/extension/internal rotation/external rotation, elbow flexion/extension, finger flexion/extension, turbine room attendant strength, interosseous 5/5 RLE: Hip flexion, ankle plantar flexion/dorsiflexion 5/5 LLE: Hip flexion, ankle plantar flexion/dorsiflexion 5/5 Results & Data Results & Data ([facility]) Vital Signs (Past 12 Hours) Vital Signs Temp Pulse Pulse Pulse Resp BP Pulse Ox 10/12/19 07:20 56 L 10/12/19 07:03 36.3 C L 58 L 16 146/71 H 96 10/12/19 04:21 36.4 C L 62 18 135/66 95 10/12/19 02:52 65 10/12/19 00:41 36.5 C 64 18 187/77 H 96 10/12/19 00:38 36.5 C 64 18 187/77 H 96 Resident Activity Tracking Resident Involvement: Resident Care Provided Care Provided: Adult Hospital Medicine
--- NOTE | 2019-10-12 17:17 | Discharge Summary ---
Date of Service October 12, 2019 Admission HPI Per Admitting Provider Lian Murphy is a 89 y/o female with past medical hx of dementia, arotic stenosis, HTN, HLD, arthritis, GERD, depression with anxiety, overactive bladder, carotid plaque who presented to [facility] ED for AMS. Family notes that patient had onset of expressive aphasia at around 1pm-4pm today. Patient's symptoms have improved at time of H+P. She notes that she woke up this morning without any new symptoms. She notes that about 4pm she had onset of difficulty "getting my words out." She states she knew what to say but was unable to say words. She also noted feeling off balance as well. Shea states her symptoms a re getting better. She denies any unilateral numbness of unilateral weakness. She notes that she felt generalized weakness. She denies any trouble with drinking water which is at bedside. She denies any chest pain, nausea, vomiting, shortness of breath, head trauma, syncope. She is not in ASA because of a prior GI bleed. She was started on Plavix in the ED. She does follow with [facility] Neurology, Dr. Jones for mild to moderate dementia with last visit on 09/08/19 with dose of donepezil increased to 10mg/day. Principal Diagnosis TIA Discharge Exam gen awake, pleasant nad heent nc at mmm breathing unlabored no accessory muscles good effort skin no rashes no pallor or icterus. neuro shows speech to be fluent wtihout difficulty in word finding maybe sl R mouth droop, no other focal neuro deficits. see Dr Martini's PE from earlier today for details of how she appeared then as well. Discharge Data Allergies Allergy/AdvReac Type Severity Reaction Status Date / Time Penicillins Allergy Intermediate FELT Verified 10/11/19 21:14 TONGUE WAS SWELLING ciprofloxacin [From Cipro] Allergy Unknown ON [facility]PG Verified 10/11/19 21:14 LIST sulfamethoxazole Allergy Unknown ON [facility] Verified 10/11/19 21:14 [From Bactrim] LIST trimethoprim [From Bactrim] Allergy Unknown ON [facility] Verified 10/11/19 21:14 LIST aspirin AdvReac Severe HX Verified 10/11/19 21:14 BLEEDING ULCERS Consultations 10/11/19 22:09 ED Decision to Admit Stat 10/12/19 00:09 Consult Case Management - Discharge Planning Routine Consult Neurology Routine Ordered Studies 10/11/19 20:20 CT angio head wo/w Stat CT angio neck with con Stat 10/12/19 00:09 MR brain wo/w con Urgent Hospital Course (1) Expressive aphasia: now resolved concern on TIA -- would be small vessel mechanism most likely - no stroke on MRI, no large vessel disease as culprit for thromboembolic, no Afib or other reason to suspect cardioembolic/central embolic (echo not ordered at admission and pt very anxious for discharge, since highly unlikely to be of yield, pt oK to have done as outpt). had transient elevation in BP c/w autoregulation - now improved. stable for home - plavix as antiplatelet since prior bleeding would make asa risky. neuro requests EEG - which can be done as outpt too. home / close outpt f/u. Total Time Total Time Spent Total Time Spent (In Minutes): <30 Discharge Plan Discharge Items Reason For Visit: EXPRESSIVE APHASIA Follow-up/Referrals: Pk Oscar MD [Primary Care Provider] - Stand-Alone Forms: My [facility] Medications and DC Order Prescriptions: No Action sertraline 100 mg tablet 200 mg PO QAM Qty: 180 RF: 3 tolterodine 4 mg capsule,extended release 24hr 4 mg PO DAILY Qty: 90 RF: 1 mirabegron 50 mg tablet extended release 24 hr 50 mg PO DAILY Qty: 90 RF: 2 donepezil 10 mg tablet 10 mg PO QAM 90 Days Qty: 90 RF: 1 atorvastatin 40 mg tablet 40 mg PO HS Qty: 90 RF: 3 Centrum Silver Women 8 mg iron-400 mcg-300 mcg tablet 1 tab PO DAILY RF: 0 mirtazapine 7.5 mg tablet 7.5 mg PO HS Qty: 90 RF: 3 pantoprazole [Protonix] 20 mg tablet,delayed release (DR/EC) 20 mg PO BID RF: 0 Admission Data Admit Date/Time: 10/11/19 22:51 Attending Provider: Alejandro Rdz Admit Provider: Napoleon Briceño Primary Care Provider: Pk Oscar Other Providers: Jakub Topete ; Bianca Ragland Coding Level of Care Code 56848 OBS Care - Discharge Diagnoses Expressive aphasia R47.01
[2019-10-12] MEDS ORDERED: STROKE PATIENT DISCHARGE STA ×2 (17:56→17:58)
--- NOTE | 2019-10-12 18:13 | Pharmacy Report ---
Pharmacist Stroke Counseling - Date of Service October 12, 2019 - Scope: Pharmacy has been consulted to provide medication discharge counseling for this patient admitted with transient ischemic attack as per the Pharmacist Discharge Counseling for Stroke Patients Protocol. - Medications on Discharge: Home Medications Medication Instructions Recorded Confirmed multivit with 1 tab PO DAILY 03/04/19 10/11/19 [id number]-[id number]-VP-lutein 8 mg iron-400 mcg-300 mcg tablet pantoprazole [Protonix] 20 mg PO BID 10/11/19 10/11/19 New Rx's Medication Instructions Recorded atorvastatin 40 mg tablet 40 mg PO HS #90 tab 11/26/18 sertraline 100 mg tablet 200 mg PO QAM #180 tab 02/04/19 tolterodine 4 mg capsule,extended 4 mg PO DAILY #90 cap 06/16/19 release 24 hr mirtazapine 7.5 mg tablet 7.5 mg PO HS #90 tab 08/09/19 mirabegron 50 mg tablet,extended 50 mg PO DAILY #90 tab 08/20/19 release 24 hr donepezil 10 mg tablet 10 mg PO QAM 90 Days #90 tab 10/06/19 clopidogrel 75 mg PO QAM 30 Days #30 tab 10/12/19 - Action: The above medications, specifically ones for stroke treatment/prophylaxis, have been reviewed in detail with the patient prior to discharge. This includes indication, common adverse reactions, drug interactions, and medication administration. Medication counseling has been employed using the teach-back method to ensure understanding. - Outcome: The patient has demonstrated understanding of the medications. Additional comments: - Stroke Discharge Counseling was completed via telephone due to the COVID-19 pandemic - Patient was given an opportunity to have any/all questions answered Thank you for allowing pharmacy to be involved in the care of this patient. Please call [phone] with any additional questions
--- NOTE | 2019-10-12 18:32 | Neurology Consultation ---
Date of Consultation October 12, 2019 Assessment & Plan (1) TIA (transient ischemic attack): Normal Katherine is an 89 yo woman w/ PMH of dementia, depression/anxiety, HTN, HLD, DM, hearing loss, aortic valve stenosis, GERD, known lung nodules and bladder mass who p/t [facility] after acute onset of word finding difficulty. 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 no LVO, high-grade stenosis or aneurysm - MRI brain: chronic bilateral cerebellar infarcts, moderate small vessel disease, moderate generalized atrophy, no acute infarct - TTE: pending - Telemetry: NSR - A1c: 6.0 - FLP: 93 - Troponin, TSH: negative, WNL Stroke Management: - Acute treatment: plavix - Continuous cardiac monitoring, will consider Holter monitor on discharge - Vitals, Neurochecks, NIHSS per unit routine - BP parameters: SBP CAP 180 - Consult speech, PT, OT for supportive management - Will elementary school counselor concerning stroke education, smoking cessation, healthy diet, physical activity, weight loss - Follow up with PCP for assistance with outpatient goals (BP <130/80, LDL <70, A1c <7) - Follow up in neurology clinic in 6-8 weeks with MOHINI Garrido (can be telehealth) - Recommend outpatient EEG to r/o seizure tendency given underlying dementia and generalized atrophy (and hence, increased seizure risk) Secondary Stroke Prevention: - Antiplatelet: plavix 75mg daily - Anticoagulation: Not indicated at this time - Statin: Atorvastatin 40mg daily HTN: - BP parameters, as above - Ok to restart home medications with goal of lowering BP to normotension over next 3-4 days FEN/GI: - Diet: Cardiac HH diet and PO meds given absence of bulbar signs or symptoms - Monitor lytes and replete PRN Glucose Control: - Sliding scale insulin and accuchecks per primary team to avoid hyperglycemia Thank you for this interesting consult. Plan of care was discussed with primary team. Please call with any questions. (2) Expressive aphasia: (3) Aortic valve stenosis: (4) Diabetes mellitus type II, controlled, with no complications: (5) Hypertension: (6) Hypercholesteremia: History of Present Illness Attending Physician: Alejandro Rdz DO History of Present Illness Normal Katherine is an 89 yo woman w/ PMH of dementia, depression/anxiety, HTN, HLD, DM, hearing loss, aortic valve stenosis, GERD, known lung nodules and bladder mass who p/t [facility] after acute onset of word finding difficulty. 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 In the ED, patient was afebrile, BP 185/74, heart rate 103, respiratory rate 18, satting 93% on room air. Labs notable for WBC 6.69, hemoglobin 12.9, platelets 173, electrolytes within normal, elevated BUN 27, creatinine 1.17, glucose 87, INR 1, magnesium 2.1, calcium 9.7, troponin negative, LFTs within normal, TSH within normal, UA showing pyuria but no infection. Imaging independently reviewed. CT head shows moderate generalized atrophy with small vessel disease. 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 MRI brain obtained and shows chronic bilateral cerebellar infarcts, moderate small vessel disease, moderate generalized atrophy, no acute infarct. She is admitted for TIA work-up. On examination today, she reports that all symptoms have resolved she feels back to her baseline. She denied having any seizure-like activity including tongue biting, loss of bowel or bladder, loss of consciousness, or convulsive movements. She has not had an episode like this before and unfortunately there were no other people around to witness the episode when it occurred. She is not on an antiplatelet agent at home due to history of bleeding ulcers in the past. Stroke Workflow: Where patient arrived from: home CT ASPECT: 10 Time IV tpa is given: NA tPA bolus: NA tPA dose: NA If tpa not given, why not: Outside of time window, rapid resolution of symptoms If delay >60min after hospital arrival, why: n/a If no IA therapy, why not: No LVO on CTA Patient Features: Admission NIHSS: 0 Admission Modified Broderick Scale: 1-2 Time patient last seen well: 4pm on 10/11/19 Wake up stroke: No Intubation status: Not intubated Stroke Risk Factors: Hypertension: Y Hyperlipidemia: Y Atrial Fib: N Tobacco: N Diabetes: Y Taking NOAC or warfarin: N Allergies Allergy/AdvReac Type Severity Reaction Status Date / Time Penicillins Allergy Intermediate FELT Verified 10/11/19 21:14 TONGUE WAS SWELLING ciprofloxacin [From Cipro] Allergy Unknown ON [facility] Verified 10/11/19 21:14 LIST sulfamethoxazole Allergy Unknown ON [facility] Verified 10/11/19 21:14 [From Bactrim] LIST trimethoprim [From Bactrim] Allergy Unknown ON [facility] Verified 10/11/19 21:14 LIST aspirin AdvReac Severe HX Verified 10/11/19 21:14 BLEEDING ULCERS Home Medications Home Medications Medication Instructions Recorded Confirmed Type atorvastatin 40 mg tablet 40 mg PO HS #90 tab 11/26/18 10/11/19 Rx sertraline 100 mg tablet 200 mg PO QAM #180 tab 02/04/19 10/11/19 Rx multivit with 1 tab PO DAILY 03/04/19 10/11/19 History qgiyaadu-fhho-KS-lutein 8 mg iron-400 mcg-300 mcg tablet tolterodine 4 mg capsule,extended 4 mg PO DAILY #90 cap 06/16/19 10/11/19 Rx release 24 hr mirtazapine 7.5 mg tablet 7.5 mg PO HS #90 tab 08/09/19 10/11/19 Rx mirabegron 50 mg tablet,extended 50 mg PO DAILY #90 tab 08/20/19 10/11/19 Rx release 24 hr donepezil 10 mg tablet 10 mg PO QAM 90 Days #90 tab 10/06/19 10/11/19 Rx pantoprazole [Protonix] 20 mg PO BID 10/11/19 10/11/19 History clopidogrel 75 mg PO QAM 30 Days #30 tab 10/12/19 Rx Patient History Medical History Abnormal ECG Acute urinary retention Aortic valve sclerosis Aortic valve stenosis (Chronic) Arthritis Bladder mass Carotid artery plaque Cough Depression with anxiety (Chronic) Depressive disorder, not elsewhere classified Diabetes mellitus type II, controlled, with no complications Elevated lipase Generalized osteoarthritis Generalized weakness Hearing loss Hypercalcemia Hypercholesteremia (Chronic) Hyperglobulinemia Hypertension (Chronic) Hypothyroidism Hypoxia Insomnia Laryngopharyngeal reflux Low back pain Lumbar spinal stenosis Lung nodules Microhematuria Mild cognitive impairment Mitral regurgitation Mitral valve annular calcification Neoplasm of uncertain behavior of skin Osteoarthritis of right knee Osteoarthritis, 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 Seizure Shoulder pain, right Stomach ulcer Syncope Urge and stress incontinence Surgical History History of bladder suspension procedure Abdomino-Vaginal Vesical Neck Suspension S/P hysterectomy Family History Mother Diabetes Sister Alcohol abuse Anxiety Gallbladder disease Heart disease Hypertension Cardiac disorder Son Cancer Grandfather Colorectal cancer Grandmother Colorectal cancer Other Deafness Hearing loss Social History Smoking Status: Never smoker Second Hand Exposure: No; Do You Dip or Chew Tobacco: No; Hx Alcohol Use: No Hx Substance Use: No Preferred Language: Kyrgyz Communication Ability: Effective Visual Impairment: No Limitations Beliefs That Will Affect Care: None marital status: / Current Living Situation: Alone current occupational status: retired Other Information That Helps Us Care for You: No Feels Safe at Home: Yes Safety Concerns: Feels Safe At This Time Dental Care, Regularly: Yes Physical Activity Frequency: Does not Exercise Review of Systems Review of Systems: 14 point review of systems completed and negative except as in HPI. Exam (Neuro) Physical Exam: General Exam: GEN: NAD, lying down in examination bed. HEENT: No conjunctival injection, no rhinorrhea. CV: RRR on monitor, no significant edema. PULM: Nonlabored respirations on room air. Neuro Exam: MS: Awake and Alert. Oriented to person, place, and date. Speech fluent and appropriate without dysarthria or paraphasic errors. Language intact including naming, comprehension, repetition. Cognition and memory grossly intact. Attention intact. No neglect. CN: Visual reddy full, + blink to threat bilaterally. No extinction to double simultaneous stimuli. Normal fundoscopic exam. PERRLA OU. EOMI without nystagmus. Facial sensation intact to LT. Facial muscles full and symmetric. Hearing intact to conversation bilaterally. Uvula midline with symmetric palatal elevation. Shoulder shrug normal. Tongue midline. MOTOR: Normal bulk and tone. No pronator drift. BUE strength 5/5 at deltoids, biceps, triceps, wrist flexors and extensors, and hand grasp bilaterally. BLE strength 5/5 at iliopsoas, hamstrings, quadriceps, tibialis anterior, and gastrocnemius bilaterally. REFLEXES: 1+ at biceps, triceps, brachioradialis, 1+ patella, and absent Achilles bilaterally. Flexor plantar responses bilaterally. SENSORY: Intact to LT/vibration throughout, no extinction to double simultaneous stimuli. COORDINATION: No dysmetria or ataxia on [id number]-kv-thxe bilaterally. Normal Heide bilaterally. GAIT: Deferred due to physical status. NIH STROKE SCALE 1A. Level of Consciousness (0-3) = 0 1B. LOC Questions (0-2) = 0 1C. LOC Commands (0-2) = 0 2. Best Horizontal Gaze (0-2) = 0 3. Visual Reddy (0-3) = 0 4. Facial Palsy (0-3) = 0 5. Motor Arm Right (0-4) = 0 Left (0-4) = 0 6. Motor Leg Right (0-4) = 0 Left (0-4) = 0 7. Limb Ataxia (0-2) = 0 8. Sensory (0-2) = 0 9. Best Language (0-3) = 0 10. Dysarthria (0-2) = 0 11. Extinction and Inattention (0-2) = 0 NIHSS TOTAL = 0 Results & Data ([facility]) Vital Signs (Past 12 Hours) Vital Signs Temp Pulse Pulse Resp BP Pulse Ox 10/12/19 15:49 64 10/12/19 15:46 36.6 C 61 18 144/68 H 93 10/12/19 11:39 36.6 C 68 16 100/59 L 91 10/12/19 07:20 56 L 10/12/19 07:03 36.3 C L 58 L 16 146/71 H 96 PG Care Time/CCT Total # of Minutes Spent Total Time Spent with Patient: Total time spent is greater than 50% in coordination of care (as documented) at patient's floor/unit and/or counseling patient: Coding Level of Care Code 71871 Initial Inpt Care Lvl 3 Diagnoses TIA (transient ischemic attack) G45.9 Expressive aphasia R47.01 Aortic valve stenosis I35.0 Diabetes mellitus type II, controlled, with no complications E11.9 Hypertension I10 Hypercholesteremia E78.00
[2019-10-12] MEDS ORDERED: MIRTAZAPINE TAB 15 MG TAB PO SCH (21:00)
[2019-10-12] MEDS ORDERED: ATORVASTATIN 40 MG TAB PO SCH (21:00)
--- NOTE | 2019-10-13 00:33 | Billing Data ---
Date of Service October 13, 2019 Coding Level of Care Code 65689 OBS Care - Level 3
--- NOTE | 2019-10-13 11:49 | Electrocardiogram Report ---
Test Reason : Blood Pressure : / mmHG Vent. Rate : 071 BPM Atrial Rate : 071 BPM P-R Int : 160 ms QRS Dur : 084 ms QT Int : 398 ms P-R-T Axes : 014 022 048 degrees QTc Int : 432 ms Normal sinus rhythm Normal ECG When compared with ECG of 29-AUG-2018 15:00, No significant change was found Confirmed by Manny Talamantes ([id number]) on 10/13/2019 11:48:47 AM Referred By: REFERRED SELF Confirmed By:Manny Talamantes
== END 2019-10-12 18:42 | disposition home or self-care (01) ==
LOC: 2N 17:40 → ED 17:40 → SUATTDRO 22:51 → 2N 23:37